=== PATIENT | male | born 1935 | race Hispanic/Latino ===

== ENCOUNTER 2017-03-23 09:01 | Outpatient (CLI) | payer MEDICARE, OTHER | END 2017-03-23 09:02 | disposition home or self-care (01) | PROVIDERS: ATTEND Nurse Practitioner Adult Health | DX: R13.19 Other dysphagia (principal); M62.81 Muscle weakness (generalized); I50.9 Heart failure, unspecified; J69.0 Pneumonitis due to inhalation of food and vomit ==

== ENCOUNTER → 2017-03-30 | Outpatient (CLI) | payer MEDICARE, OTHER ==
[~2017-03-30] MED LIST: Lidocaine 2% Jelly 5 ML TUBE ONE; Sodium Chloride 0.9% 15 ML NEB ONE
--- NOTE | 2017-03-30 19:31 | PRG ---
DATE OF SERVICE: 03/30/2017 HISTORY: Mr. Guillermo Vaz is an 81-year-old gentleman who presents [facility] for evaluat ion of an ulceration of the right medial buttock. The patient states that the ulceration has been pr esent on an intermittent basis for the past 7 years. He states that the ulceration began after he st arted receiving dialysis. The patient is presently residing at [facility]. The patient was re ferred to the Wound Center by NINA Ruiz. PAST MEDICAL HISTORY: 1. End-stage renal disease. 2. Diabetes mellitus. 3. History of hypertension. 4. Hypothyroidism. 5. Ischemic cardiomyopathy. 6. Coronary artery disease. 7. Hearing loss. 8. Atrial fibrillation. 9. Anemia. PAST SURGICAL HISTORY: 1. Dialysis access procedures. 2. Back surgery. 3. Knee surgery. 4. Achilles tendon repair. 5. Coronary artery bypass grafting/left atrial appendage ligation. MEDICATIONS: 1. Amiodarone. 2. Aspirin. 3. Coreg. 4. Dulcolax. 5. Megace. 6. Pantoprazole. 7. Tums. 8. Zofran. 9. Atorvastatin. 10. Humalog. 11. Renvela. 12. Pataday eyedrops. PHYSICAL EXAMINATION: VITAL SIGNS: Temperature 97.8, pulse 73, respirations 17, blood pressure 119/55. Accu-Chek 170. BACK: An ulceration of the right medial buttock is present, which measures approximately 0.5 x 0.2 c m. Granulation tissue is present within the wound margins. Nonviable tissue present within the woun d margins was debrided with an excisional full-thickness debridement with the use of a curet. No pur ulent drainage is associated with the wound. No erythema of the skin surrounding the wound is presen t. No maceration of the skin of the periwound is noted. ASSESSMENT AND PLAN: 1. Right medial buttock ulceration, dressing changes of Arglaes powder and bordered gauze will be in itiated today. These dressing changes are to be performed on a daily basis and as needed after clean sing and irrigation. No antibiotics will be prescribed today based upon the appearance of the wound. I will see Mr. Vaz again in two weeks. The patient understands and is in agreement with the preceding treatment plan. 2. End-stage renal disease. 3. Diabetes mellitus. The patient's Accu-Chek in clinic today is 170. The patient has been told th at for optimal wound healing, his blood glucoses should remain below 150. 4. History of hypertension. 5. Hypothyroidism. 6. Ischemic cardiomyopathy. 7. Coronary artery disease. 8. Hearing loss. 9. Atrial fibrillation. 10. Anemia.
== END ==
LOC: WCC 07:59
PROVIDERS: ATTEND Family Medicine
DX: L98.419 Non-pressure chronic ulcer of buttock with unspecified severity (principal); E11.22 Type 2 diabetes mellitus with diabetic chronic kidney disease; N18.6 End stage renal disease; I48.91 Unspecified atrial fibrillation; D64.9 Anemia, unspecified; I25.10 Atherosclerotic heart disease of native coronary artery without angina pectoris; E03.9 Hypothyroidism, unspecified; I25.5 Ischemic cardiomyopathy; H91.90 Unspecified hearing loss, unspecified ear; Z86.79 Personal history of other diseases of the circulatory system
CPT/HCPCS: 11042; 82962; 97139; G0463; 36416; 99214; A4218

== ENCOUNTER 2017-04-12 12:28 | Emergency (ER) | payer MEDICARE, OTHER ==
[2017-04-12 14:59] LABS: Mean Platelet Volume 7.6 fL (7.4-10.4); Red Blood Cell (RBC) Count 2.55 mill/uL (4.70-6.10); White Blood Cell (WBC) Count 10.2 thou/uL (4.8-10.8)
[2017-04-12 15:10] LABS: ALT (SGPT) 10 U/L (8-55); AST (SGOT) 15 U/L (5-34); Alkaline Phosphatase 86 U/L (40-150); Anion Gap 17 mmol/L (10-20); BUN (Urea Nitrogen) 66 mg/dL (8.4-25.7); Bilirubin, Total 0.8 mg/dL (0.2-1.2); Calc. Creatinine Clearance 0 mL/min (70-130); Calcium 9.2 mg/dL (7.8-10.44); Carbon Dioxide 28 mmol/L (23-31); Chloride 93 mmol/L (98-107); Estimated GFR-MDRD 10; Globulin 3.4 g/dL (2.4-3.5)
--- NOTE | 2017-04-12 15:27 | CT ---
CT CERVICAL SPINE WITHOUT CONTRAST: HISTORY: Fall. COMPARISON: Cervical spine CT 01/04/17. FINDINGS: Severe degenerative changes throughout the cervical spine are similar. There is levoscoliosis of the cervical spine.. The lung apices demonstrate some atelectatic changes. Soft tissues are edematous. There is extensive atherosclerotic plaque of the carotid bulbs. IMPRESSION: Severe degenerative changes. No acute fracture. POS: [facility]
[2017-04-12 15:33] LABS: Anisocytosis SLIGHT = 6-15 cells (100X) (0-5/hpf); Band 1 % (5-11); Hypochromia MODERATE=16-30 cells (100X) (0-5/hpf); Neutrophil 88 % (42-75)
--- NOTE | 2017-04-12 15:46 | RAD ---
EXAM: Pelvis 1 view COMPARISON: Multiple priors FINDINGS: There is further displacement of the left greater trochanter avulsion fracture. There is also a scler otic line along the intertrochanteric portion of the left femur. SI joints and pubic symphysis are un remarkable. IMPRESSION: 1. Further displacement of the left greater trochanter avulsion fracture. 2. Sclerotic line along the intertrochanteric portion left femur suggesting a healing fracture. POS: [facility]
== END 2017-04-12 18:57 ==
LOC: ERS 12:28
DX: M19.90 Unspecified osteoarthritis, unspecified site (principal); E11.22 Type 2 diabetes mellitus with diabetic chronic kidney disease; I25.2 Old myocardial infarction; I12.0 Hypertensive chronic kidney disease with stage 5 chronic kidney disease or end stage renal disease; G62.9 Polyneuropathy, unspecified; N18.6 End stage renal disease; Z79.4 Long term (current) use of insulin; Z79.82 Long term (current) use of aspirin; Z79.899 Other long term (current) drug therapy
CPT/HCPCS: 36415; 72125; 72170; 80053; 85025; 93005

== ENCOUNTER 2017-04-13 08:52 | Outpatient (CLI) | payer MEDICARE, OTHER ==
--- NOTE | 2017-04-13 10:22 | PRG ---
DATE OF SERVICE: 04/13/2017 HISTORY: Mr. Guillermo Vaz is a very pleasant 81-year-old gentleman who presents to the [facility] for evaluation of an ulceration of the right medial buttock. The patient previously stated that th e ulceration has been present on an intermittent basis for the past 7 years. He stated that the ulce ration began after he started receiving dialysis. The patient continues to reside at [facility]. The patient was referred to the Wound Center by Alicia WOOD. Since the patient's last visit, Mr. Vaz has been receiving dressing changes of Arglaes powder and bordered gauze on a daily ba sis after cleansing and irrigation. PHYSICAL EXAMINATION: VITAL SIGNS: Temperature 98.0, pulse 73, respirations 16, blood pressure 111/62. Accu-Chek 120. BACK: An ulceration of the right medial buttock is present which measures approximately 0.3 x 0.3 cm . The dimensions of the wound at the time of the patient's last visit were approximately 0.5 x 0.2 c m. Granulation tissue is present within the wound margins. Nonviable tissue present within the woun d margins was debrided with an excisional full-thickness debridement with the use of a curet. No pur ulent drainage is associated with the wound. No erythema of the skin surrounding the wound is presen t. No maceration of the skin of the periwound is noted. ASSESSMENT AND PLAN: 1. Right medial buttock ulceration. Dressing changes of Arglaes powder and bordered gauze will be c ontinued on a daily basis and as needed after cleansing and irrigation. I will see Mr. Vaz aga in in 3 weeks. 2. End-stage renal disease. 3. Diabetes mellitus. The patient's Accu-Chek in clinic today is 120. The patient has been reminde d that for optimal wound healing, his blood glucoses should remain below 150. 4. History of hypertension. 5. Hypothyroidism. 6. Ischemic cardiomyopathy. 7. Coronary artery disease. 8. Hearing loss. 9. Atrial fibrillation. 10. Anemia.
[2017-04-13] MEDS ORDERED: Lidocaine 2% Jelly 5 ML TUBE ONE (21:25)
[2017-04-13] MEDS ORDERED: Sodium Chloride 0.9% 15 ML NEB ONE (21:25)
== END 2017-04-13 08:53 | disposition home or self-care (01) ==
LOC: WCC 08:52
PROVIDERS: ATTEND Family Medicine
DX: E11.622 Type 2 diabetes mellitus with other skin ulcer (principal); L98.419 Non-pressure chronic ulcer of buttock with unspecified severity; E11.22 Type 2 diabetes mellitus with diabetic chronic kidney disease; I12.0 Hypertensive chronic kidney disease with stage 5 chronic kidney disease or end stage renal disease; E03.9 Hypothyroidism, unspecified; I25.10 Atherosclerotic heart disease of native coronary artery without angina pectoris; I48.91 Unspecified atrial fibrillation; I25.5 Ischemic cardiomyopathy; N18.6 End stage renal disease; D63.1 Anemia in chronic kidney disease; Z99.2 Dependence on renal dialysis; H91.90 Unspecified hearing loss, unspecified ear
CPT/HCPCS: A4218

== ENCOUNTER 2017-04-13 20:03 | Emergency (ER) | payer MEDICARE, OTHER ==
[2017-04-13 20:40] LABS: #Lymphocytes 0.5 thou/uL (1.20-3.40); #Monocytes 1.4 thou/uL (0.11-0.59); #Neutrophils 9.9 thou/uL (1.40-6.50); %Basophils 0.1 % (0.0-1.0); %Eosinophils 0.3 % (0.0-10.0); %Lymphocytes 4.3 % (21.0-51.0); %Monocytes 11.6 % (0.0-10.0); Hematocrit 27.1 % (42.0-52.0); Mean Platelet Volume 7.3 fL (7.4-10.4); Red Blood Cell (RBC) Count 2.66 mill/uL (4.70-6.10); White Blood Cell (WBC) Count 11.8 thou/uL (4.8-10.8)
[2017-04-13 21:02] LABS: ALT (SGPT) 10 U/L (8-55); AST (SGOT) 21 U/L (5-34); Alkaline Phosphatase 105 U/L (40-150); Anion Gap 19 mmol/L (10-20); BUN (Urea Nitrogen) 31 mg/dL (8.4-25.7); Calc. Creatinine Clearance 0 mL/min (70-130); Carbon Dioxide 25 mmol/L (23-31); Chloride 97 mmol/L (98-107); Estimated GFR-MDRD 18; Globulin 3.6 g/dL (2.4-3.5); Protein, Total 6.3 g/dL (5.8-8.1)
[2017-04-13 21:04] LABS: Troponin I 0.108 ng/mL (< 0.028)
--- NOTE | 2017-04-13 23:14 | CT ---
CT BRAIN 04/13/17 PROVIDED CLINICAL HISTORY: Altered mental status. FINDINGS: Comparison is made with the study dated 01/04/17. The ventricular system appears normal in size and morphology. There is no evidence for intracranial h emorrhage or mass effect. The extracranial soft tissues and osseous structures demonstrate no acute f indings. IMPRESSION: No evidence for intracranial hemorrhage or mass effect. POS: [facility]
== END 2017-04-14 00:16 | disposition home or self-care (01) ==
LOC: ERS 20:03
DX: R41.82 Altered mental status, unspecified (principal); I25.2 Old myocardial infarction; I12.0 Hypertensive chronic kidney disease with stage 5 chronic kidney disease or end stage renal disease; E11.40 Type 2 diabetes mellitus with diabetic neuropathy, unspecified; E11.22 Type 2 diabetes mellitus with diabetic chronic kidney disease; N18.6 End stage renal disease; Z79.82 Long term (current) use of aspirin; Z79.899 Other long term (current) drug therapy; Z99.2 Dependence on renal dialysis
CPT/HCPCS: 36415; 70450; 80053; 82553; 84484; 85025; 93005; A4218

== ENCOUNTER 2017-04-14 16:20 | Inpatient (IN) | payer MEDICARE, OTHER ==
[2017-04-14 16:49] LABS: #Lymphocytes 0.5 thou/uL (1.20-3.40); #Neutrophils 12.2 thou/uL (1.40-6.50); %Basophils 0.2 % (0.0-1.0); %Eosinophils 0.2 % (0.0-10.0); %Lymphocytes 3.5 % (21.0-51.0); %Monocytes 7.3 % (0.0-10.0); %Neutrophils 88.8 % (42.0-75.0); Hemoglobin 8.2 g/dL (14.0-18.0); Mean Corpuscular HGB CONC 31.4 g/dL (32.0-36.0); Mean Corpuscular Hemoglobin 31.6 pg (27.0-31.0); Mean Platelet Volume 7.7 fL (7.4-10.4); Platelet Count 234 thou/uL (130-400); RBC Distribution Width 16.4 % (11.5-14.5); White Blood Cell (WBC) Count 13.8 thou/uL (4.8-10.8)
[2017-04-14 17:09] LABS: ALT (SGPT) 10 U/L (8-55); AST (SGOT) 27 U/L (5-34); Albumin 2.7 g/dL (3.4-4.8); Alkaline Phosphatase 102 U/L (40-150); Anion Gap 17 mmol/L (10-20); BUN (Urea Nitrogen) 18 mg/dL (8.4-25.7); Bilirubin, Total 1.2 mg/dL (0.2-1.2); Calc. Creatinine Clearance 0 mL/min (70-130); Calcium 8.9 mg/dL (7.8-10.44); Carbon Dioxide 28 mmol/L (23-31); Chloride 99 mmol/L (98-107); Estimated GFR-MDRD 30; Globulin 3.5 g/dL (2.4-3.5); Glucose 183 mg/dL (83-110); Potassium 3.9 mmol/L (3.5-5.1); Protein, Total 6.2 g/dL (5.8-8.1); Sodium 140 mmol/L (136-145)
--- NOTE | 2017-04-14 17:37 | RAD ---
RIGHT HUMERUS TWO VIEWS: 04/14/17 HISTORY: 81-year-old male with pain and deformity. There is a markedly comminuted, markedly displaced and foreshortened fracture of the proximal humerus . There is very extensive callus. There is severe bone demineralization. There is no overt dislocatio n of the glenohumeral joint but there is severe resultant deformity because of severe foreshortening and an associated comminuted healing fracture. There is also some punctate gas collection within the right shoulder soft tissues. There appears to be some focal soft tissue swelling. IMPRESSION: Severe foreshortening and deformity of the comminuted proximal humeral and humeral neck fracture with marked worsening in position and alignment when compared to a prior 01/14/17 study. There is some rachel rly marked focal soft tissue swelling over the region of the right shoulder and right deltoid region. There also is noted to be several small punctate gas collections within the soft tissues lateral to the shoulder. Etiology of the soft tissue gas collections is uncertain, this could conceivably be rel ated to some type of injection or some type of open wound. If the patient has not had any type of inj ection in this region or any open wound, the possibility of gas forming bacteria and associated infec tion, cannot be excluded. Very severe bone demineralization. POS: [facility]
--- NOTE | 2017-04-14 17:39 | RAD ---
CHEST ONE VIEW: 04/14/17 HISTORY: 81-year-old male with history of pain and deformity. Postop midline sternotomy and left ICD. Mild stable vascular congestion. Borderline sized heart. Hea ling displaced comminuted proximal humeral fracture with extensive bony callus formation showing more deformity and foreshortening when compared to the 03/28/17 study. There is a small amount of punctate gas collecting in the soft tissue lateral to the right shoulder. Etiology of which is uncertain from this study. Please see the report from the humerus x-ray. IMPRESSION: Mild stable vascular congestion. Postop midline sternotomy and left ICD. Healing fracture proximal ri ght humerus with severe foreshortening and deformity and some tiny punctate gas collections in the so ft tissues. POS: [facility]
[2017-04-14] MEDS ORDERED: Fentanyl 100 MCG/2 ML VIAL ONE (21:59)
[2017-04-14] MEDS ORDERED: Clindamycin/D5W 900 mg/50 ml Premix Bag ONE (21:59)
--- NOTE | 2017-04-14 21:59 | CT ---
RIGHT SHOULDER CT WITHOUT IV CONTRAST: 04/14/17 HISTORY: Gas in the soft tissues of the right upper extremity. There is a comminuted, markedly displaced fracture of the humeral head and neck with considerable for eshortening and resultant deformity. There is no evidence for miguel ángel dislocation. There is very exuber ant callus. There is some scattered areas of calcification or ossification within the periarticular r egions as well as within some of the adjacent musculature of the shoulder including the deltoid muscl e and biceps muscle with some prominent subcutaneous soft tissue swelling and edematous changes. Ther e is scattered punctate areas of gas or air within the right shoulder soft tissues generally around t he fracture site as well as in the deltoid muscle and the biceps muscle and other scattered areas in the right shoulder soft tissue musculature and perimuscular region with a possible tiny amount of ann e gas within a superficial vein in the right shoulder. There is no evidence for an overt acute fractu re. There is no identifiable focal drainable abscess. IMPRESSION: Scattered areas of gas in the soft tissue mostly intramuscular and perimuscular region of the right s houlder certainly concerning for the possibility of infection including necrotizing fasciitis. I johnny ot identify any definite open wound but certainly correlation with any type of recent instrumentation or injections in the region of the right shoulder should certainly be considered but without history of an open wound or that of some type of recent instrumentation, infection and associated developing necrotizing fasciitis is certainly a consideration. There is a healing markedly displaced comminuted fracture of the humeral neck with exuberant bony callus and marked malalignment and resultant deform ity. There is some extensive scattered areas of soft tissue intramuscular calcification or ossificati on, nonspecific. This could possibly be related to prior scattered areas of myositis ossificans. Given the generalized subcutaneous, marianna and intramuscular and deep fascial edematous changes as well as the soft tissue and intramuscular and perimuscular gas, acute infection including necrotizing fas ciitis must be considered. Findings were discussed with Dr. Catalan at 9:47 p.m. Code CR POS: [facility]
[2017-04-15 00:40] LABS: Troponin I 0.163 ng/mL (< 0.028)
--- NOTE | 2017-04-15 01:56 | CON ---
DATE OF CONSUlTATION: 04/14/2017 HISTORY OF PRESENT ILLNESS: An 81-year-old male patient dialysis with a left arm fistula, nursing ho la resident who has dementia. The patient's daughter lives in town. She is not here with him. The patient has a caregiver accompanying him. Apparently, he has been in the emergency room on 7 yesterday for mental status changes and reports again today. Brain CAT scan yesterday on the . On the , he had a pelvis and cervical spine x-ray. The patient was brought in today for mental status changes. He was noted to have ecchymosis about his antecubital area and distal right upper a rm. Patient has a left arm dialysis fistula and did have labs drawn on 04/12 and 04/13, probably ref lecting multiple IV sticks in his right antecubital area where he has ecchymosis. He is concerned ab out these changes, had x-rays of right arm, he has a chronic proximal right humeral fracture. This h as healed secondarily without operation. Patient was noted on plain x-rays and CAT scan today of the right arm to know there is some soft tissue gas and punctate air. Examined his right arm reveals th at he has ecchymosis and edema about his antecubital area and his upper arm and deltoid area looks no rmal. Patient does not have changes consistent with necrotizing fasciitis and I think more than like ly this punctate area has gas and some edema in the distal upper arm are reflective of phlebotomies a nd IVs. ALLERGIES: None. MEDICATIONS: List not available, but previous indications, tramadol, Renvela, Zofran, nifedipine 30 mg daily, insulin units subcu q.p.m., carvedilol 6.25 mg b.i.d., Dulcolax daily, atorvastatin 2 0 mg at bedtime, aspirin 81 mg a day, amiodarone 400 mg a day. PAST SURGICAL HISTORY: Coronary bypass grafting four vessels, Dr. Barrientos on 12/17/2015, with maze pro carroll. On 06/2016, echocardiogram 30% ejection fraction, defibrillator left subclavian vein, cardia c catheterization 06/2016. Defibrillator placement. Dr. Thomas saw him Cardiology was , diagnosis ischemic cardiomyopathy; coronary artery disease, status post ICD placement. PAST MEDICAL HISTORY: Coronary disease; end-stage renal disease on maintenance dialysis Monday, , and Monday; diabetes type 2; dyslipidemia; dementia; chronic diastolic heart failure, ejection fraction 25-30%; hypothyroidism. SOCIAL HISTORY: senior care resident [facility] apartment. Tobacco, alcohol, drug us e: None. PHYSICAL EXAMINATION: VITAL SIGNS: Patient is communicative, 139/77, 83, 16. HEAD, EARS, EYES, NOSE, AND THROAT: Unremarkable. LUNGS: Clear to auscultation. CARDIAC: Regular rate and rhythm. ABDOMEN: Soft, nontender. EXTREMITIES: Unremarkable. Dialysis fistula left upper arm cephalic vein, right arm ecchymosis abov e the antecubital fossa, some edema, no crepitance, no skin changes upper half of the arm. No bliste ring, no changes, just necrotizing fasciitis. ASSESSMENT AND PLAN: 1. Patient has presented with mental status changes and there is concern for his right arm due to CA T scan and plain films demonstrated some soft tissue gas, but this is probably related to IV access. He does not need an operation tonight is my opinion. I do not think he needs antibiotis. One could observe him and repeat CAT scan in the morning. He could be admitted on the medical service. 2. Ischemic cardiomyopathy. 3. Diabetes mellitus type 2. 4. Dementia. 5. Defibrillator left subclavian placed in June. 6. Follow with Dr Thomas. 7. Left-arm fistula.
[2017-04-15 03:32] LABS: Hemoglobin 7.4 g/dL (14.0-18.0)
[2017-04-15 03:43] LABS: ALT (SGPT) 10 U/L (8-55); AST (SGOT) 23 U/L (5-34); Albumin 2.3 g/dL (3.4-4.8); Alkaline Phosphatase 84 U/L (40-150); Anion Gap 15 mmol/L (10-20); BUN (Urea Nitrogen) 25 mg/dL (8.4-25.7); Bilirubin, Total 0.7 mg/dL (0.2-1.2); Calc. Creatinine Clearance 20 mL/min (70-130); Calcium 8.7 mg/dL (7.8-10.44); Carbon Dioxide 27 mmol/L (23-31); Chloride 101 mmol/L (98-107); Estimated GFR-MDRD 23; Globulin 2.9 g/dL (2.4-3.5); Glucose 210 mg/dL (83-110); Potassium 3.9 mmol/L (3.5-5.1); Protein, Total 5.2 g/dL (5.8-8.1); Sodium 139 mmol/L (136-145)
[2017-04-15 03:47] LABS: Troponin I 0.155 ng/mL (< 0.028)
[2017-04-15] MEDS ORDERED: Milk Of Magnesia 30 ML UDCUP PO PRN (08:34)
[2017-04-15] MEDS ORDERED: guaiFENesin 100 MG/5 ML UDCUP PO PRN (08:34)
[2017-04-15] MEDS ORDERED: Sodium Chloride 0.65% Nasal 44 ML BOT EA NARE PRN (08:34)
[2017-04-15] MEDS ORDERED: Calcium Carbonate 500 MG ChewTAB PO PRN (08:34)
[2017-04-15] MEDS ORDERED: Dextrose 5% in Water 1,000 ML IV PRN (08:34)
[2017-04-15] MEDS ORDERED: HumaLOG 300 UNITS/3 ML VIAL SC PRN (08:34)
[2017-04-15] MEDS ORDERED: Lorazepam 0.5 MG TAB PO PRN (08:34)
[2017-04-15] MEDS ORDERED: Bisacodyl 10 MG SUPP PR PRN (08:34)
[2017-04-15] MEDS ORDERED: Ondansetron ODT 4 MG TAB PO PRN (08:34)
[2017-04-15] MEDS ORDERED: Mag-Al 1200 mg/1200 mg/30 ML UDCUP PO PRN (08:37)
[2017-04-15] MEDS ORDERED: Ondansetron HCl/PF 4 MG/2 ML Vial IVP PRN ×2 (08:37→17:28)
[2017-04-15] MEDS ORDERED: Docusate 100 MG CAP PO SCH (09:30)
[2017-04-15] MEDS ORDERED: Enoxaparin Sodium 30 MG/0.3 ML SYRINGE SC SCH (09:30)
[2017-04-15] MEDS ORDERED: Megestrol Acetate 800 MG/20 ML UDCUP PO SCH (09:30)
[2017-04-15] MEDS ORDERED: PHENYLEPHRINE-NS 100 MCG/ML 10 ML SYRINGE ONE (09:39)
[2017-04-15] MEDS ORDERED: Propofol 200 MG/20 ML VIAL ONE (09:39)
[2017-04-15] MEDS ORDERED: ePHEDrine/0.9% NaCl/PF SYRINGE 50 mg/10 ml ONE (09:39)
[2017-04-15] MEDS ORDERED: Lidocaine 1% PF 5 ML VIAL ONE (09:39)
[2017-04-15] MEDS ORDERED: Vancomycin HCl 1 GM in Premix Bag 1 BAG IVPB SCH ×2 (10:45→11:30)
[2017-04-15] MEDS ORDERED: Vancomycin HCl 500 MG in Sodium Chloride 0.9% 100 ML IVPB SCH (11:30)
[2017-04-15] MEDS ORDERED: Vancomycin HCl 750 MG in Sodium Chloride 0.9% 250 ML 250 ML IVPB SCH (11:30)
[2017-04-15] MEDS ORDERED: HOLD VANCOMYCIN FOR LEVEL >20 FS SCH (11:30)
[2017-04-15] MEDS ORDERED: Vancomycin HCl 1.25 GM in Sodium Chloride 0.9% 250 ML 250 ML IVPB SCH (11:30)
--- NOTE | 2017-04-15 11:45 | CT ---
CT RIGHT SHOULDER WITHOUT CONTRAST: Date: 04/15/17 HISTORY: Repeat examination to evaluate for subcutaneous gas. COMPARISON: CT of right shoulder from prior day. FINDINGS: The findings are completely unchanged. 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 There is extensi ve remodeling of the humeral head and neck. Soft tissue gas within superficial soft tissues, as well as within the biceps muscle is similar. This is not improved. There is gas within the deltoid musculature, and also within the joint itself. The erosive changes are much worsened from the comparison radiographs, although similar to the prior CT examination. There is heterotopic ossification around the right shoulder joint, as well as within the musculature. IMPRESSION: Unchanged examination of the shoulder. Findings are highly concerning for infection of the right shou lder and with infectious myositis. There is gas within the biceps musculature, as well as in the shou lder joint and deltoid. This is not improved. Nurse notified of findings via telephone at [phone] hours. CODE CR. POS: [facility]
[2017-04-15] MEDS ORDERED: Clindamycin/D5W 600 MG in Premix Bag 1 BAG IVPB SCH (12:00)
[2017-04-15] MEDS: Amiodarone 200 MG TAB PO SCH (12:01)
[2017-04-15] MEDS: Polyethylene Glycol 3350 17 GM Packet PO SCH (12:01)
[2017-04-15] MEDS: Sevelamer Carbonate 800 MG TAB PO SCH ×2 (12:02→21:14)
--- NOTE | 2017-04-15 13:43 | PRG ---
DATE OF SERVICE: 04/15/2017 Guillermo Vaz is an 81-year-old male who was admitted last night, he has soft tissue gas. Thought i atrogenic from 3 different hospital admissions, ER visits for IVs and phlebotomy draws, end-stage elsie al disease, dialyzing left upper arm fistula. This morning, followup CAT scan of his right upper ext remity demonstrates persistence of gaseous densities. Evaluation of his right arm reveals ecchymosis more extensive in the antecubital area and more induration proximally. ASSESSMENT AND PLAN: Soft tissue infection, right upper extremity. Would plan incision and drainage today. Vancomycin and clindamycin has been ordered. We will plan incision and drainage today. The family and patient understand that the wound will be left open for healing by secondary intention.
--- NOTE | 2017-04-15 14:05 | HP ---
DATE OF ADMISSION: 04/15/2017 PRIMARY CARE PHYSICIAN: Dr. Tank Stacy. CHIEF COMPLAINT: Worsening swelling, pain, and tenderness to the right upper extremity. HISTORY OF PRESENT ILLNESS: Mr. Vaz is a pleasant 81-year-old male with past medical history o f end-stage renal disease, on hemodialysis through the left arm fistula Monday, Monday, Monday as well as diabetes, coronary artery disease, status post coronary artery bypass graft, and cardiomyopat hy with AICD placement in June 2016, who presented to the emergency room with the above-mentioned co mplaint. History is mainly obtained by the patient himself and electronic medical records have been reviewed. The patient was actually seen in the emergency room on 04/13/2017 after his caregiver noticed some me ntal status changes. He was evaluated by CT scan of the brain and was discharged back. He was broug ht in again yesterday for same complaints of mental status changes. He was noted to have changes inc luding ecchymosis and diffuse bruising in his antecubital area in the right arm along with some swell ing and tenderness. He underwent various imaging studies for this including an x-ray of the humerus, which showed old healing fracture as well as significant focal soft tissue swelling in the right umer ulder and right deltoid region and some punctate gas collections in the soft tissue lateral to the sh oulders, concerning for infections. This led to a CT scan of the upper extremity, which also confirm ed the findings of soft tissue gas in the area around the right shoulder with a possibility of necrot izing fasciitis. He received IV antibiotics for this in the emergency room including vancomycin and clindamycin as well as Rocephin and was admitted for further evaluation. General Surgery was consult ed. Dr. Batista saw the patient yesterday in the ER and the plan was to reevaluate the arm with a repeat C T scan this morning. This was done and it showed concerning changes once again for necrotizing fasci itis and the plan for the patient is to get admitted as a full admit now instead of just observation status, as he would require surgical debridement. I have discussed this with Dr. Batista this morning . The infection seems to be around the right shoulder consistent with infectious myositis. His brui sing is in the antecubital area, which is more consistent with venipuncture bruising due to recent mu ltiple lab draws. Otherwise, he is hemodynamically stable. The care was discussed with the family present in the room as well. PAST MEDICAL HISTORY: 1. End-stage renal disease, on dialysis Monday, Monday, Monday. 2. Diabetes. 3. Hypertension. 4. Legally blind. 5. Difficulty with hearing. 6. Left foot injury. 7. Cardiomyopathy, status post pacemaker placement. 8. Chronic systolic heart failure with EF of 25%-30%. 9. Hypothyroidism. PAST SURGICAL HISTORY: 1. Coronary artery bypass graft. 2. AV fistula in the left arm. 3. Back surgery. 4. Knee surgery. 5. AICD placement. SOCIAL HISTORY: He lives in a ch[facility] and has no history of drug, tobacco, or alcohol abuse. T he patient lives at [facility]. FAMILY HISTORY: No significant family history of premature coronary artery disease. One of his brot hers of unknown type of cancer. ALLERGIES: No known medication allergies. HOME MEDICATIONS: Reviewed as follows, Renvela 2 tablets p.o. t.i.d., Ativan 0.5 mg p.o. daily p.r.n ., Dulcolax p.r.n., Tums p.r.n., Protonix 40 mg daily, Megace 5 mL p.o. b.i.d., Fleet Enema p.r.n., l idocaine patch 1 patch daily p.r.n., Coreg 6.25 mg p.o. b.i.d., Lipitor 20 mg daily, aspirin 81 mg da viv, and amiodarone 400 mg daily. REVIEW OF SYSTEMS: The following complete review of systems was negative, unless otherwise mentioned in the HPI or below: Constitutional: Weight loss or gain, ability to conduct usual activities. Sk in: Rash, itching. Eyes: Double vision, pain. ENT/Mouth: Nose bleeding, neck stiffness, pain, te nderness. Cardiovascular: Palpitations, dyspnea on exertion, orthopnea. Respiratory: Shortness of breath, wheezing, cough, hemoptysis, fever, or night sweats. Gastrointestinal: Poor appetite, abdo drew pain, heartburn, nausea, vomiting, constipation, or diarrhea. Genitourinary: Urgency, frequen cy, dysuria, nocturia. Musculoskeletal: Pain, swelling. Neurologic/Psychiatric: Anxiety, depressi on. Allergy/Immunologic: Skin rash, bleeding tendency. It is negative except for those mentioned i n the history and physical. The patient does complain of left-sided shoulder pain, but otherwise fee ls well. LABORATORY DATA: His CBC shows WBCs at 13.8, hemoglobin 8.2 with repeat hemoglobin of 7.4, platelet count of 234. Serum chemistries show a creatinine of 2.11 on presentation and 2.68 this morning. Ca rdiac enzymes are mildly elevated with troponin of 0.163 and repeat troponin of 0.155. Creatine bernadette se is within normal limits. Liver enzymes within normal limits. Lactic acid is normal at 1.9. A 12 -lead EKG, by my review, shows paced rhythm at 74 beats per minute. Chest x-ray, by my review, shows mild, stable pulmonary vascular congestion. Humeral x-ray shows significant shortening and deformit y of the comminuted proximal humeral and humeral neck fracture. Punctate gas collections within the soft tissue lateral to the shoulder as read by the radiologist. CT scan by the radiologist is concerning for necrotizing fasciitis once again in the right deltoid an d right shoulder region consistent with infectious myositis. PHYSICAL EXAMINATION: VITAL SIGNS: This morning include temperature 98.6, pulse of 72, respirations 18, saturating 96% on room air, blood pressure 97/56. GENERAL EXAMINATION: In no acute distress, awake, alert, oriented x3, lying comfortably in bed. Thor nam is at bedside. HEENT EXAMINATION: Mucous membrane is slightly dry. No oropharyngeal exudate or erythema. Head is normocephalic, atraumatic. Pupils are equally reactive to light and accommodation. Extraocular move ments intact. NECK: Supple without any lymphadenopathy, JVD, or bruit. CHEST: Clear to auscultation without any wheezing, rales, or rhonchi. Rhythm is regular without any murmur, rubs, or gallops. ABDOMEN: Soft, nontender, nondistended with positive bowel sounds. EXTREMITY EXAMINATION: Showed dialysis fistula in the left upper arm with good palpable thrill. Rig ht upper arm ecchymosis, bruising, swelling without any crepitus around the antecubital fossa. He marshall s limited range of motion to the right shoulder. Radial pulses are felt equally bilaterally. Lower extremities are free of any cyanosis, clubbing, or edema. NEUROLOGICAL EXAMINATION: Nonfocal. SKIN: Free of any rashes except for the bruising as mentioned above in the right upper extremity. PSYCHIATRIC: Normal affect. IMPRESSION AND PLAN: 1. Myositis with concerns for necrotizing fasciitis. At this time, the plan is for the patient to u nderady I and D by Dr. Batista in the operating room. He is being prepped for that. He will be kept n .p.o. for now. We will continue the antibiotics of vancomycin and clindamycin for now. Blood cultur es have been obtained and we will follow the results. He will require multiple days stay in the hosp ital. 2. We will also consult Infectious Disease for the choice of long-term antibiotics, IV versus oral, prior to discharge. The source of the infection is not clear at this time. The patient may require echocardiogram to rule out automatic implantable cardioverter defibrillator lead infection. We will follow the final results of the blood culture at this time. 3. End-stage renal disease. We will consult Nephrology, Dr. Rosenberg, for maintenance hemodialysis. 4. Abnormal troponin, likely secondary to chronic kidney disease versus demand ischemia from possibl e infection. We will continue to trend serial cardiac enzymes and restart home medications. 5. History of coronary artery disease, status post coronary artery bypass grafting. We will restart aspirin and Lipitor at this time. Hold the beta blockers given somewhat marginal blood pressure. 6. History of cardiomyopathy, status post automatic implantable cardioverter defibrillator placement . Restart home medications as above with close monitoring of hemodynamic status. 7. Chronic macrocytic anemia secondary to chronic kidney disease. We will recheck H and H on a jose y basis for transfusion as required. 8. Diabetes mellitus, type 2. Insulin sliding scale has been started with frequent Accu-Cheks. 9. Secondary hyperparathyroidism due to chronic kidney disease. 10. Severe deconditioning. We will consult Occupational Therapy and Physical Therapy. 11. Deep vein thrombosis and gastrointestinal prophylaxis. 12. Dyslipidemia. Continue Lipitor for now. 13. History of hypertension. We will restart the Coreg once his blood pressure is improved. Contin ue intravenous fluids for now. 14. Code status: FULL CODE discussed with the patient. DISPOSITION: The patient will require multiple nights' stay in the hospital given the severity of th e soft tissue infection. Estimated length of stay is at least 2-3 midnight at this time. Further fabian valerio will depend upon his clinical course.
[2017-04-15] MEDS ORDERED: Fentanyl 100 MCG/2 ML VIAL ONE ×3 (15:09→17:56)
[2017-04-15] MEDS ORDERED: Bupivacaine/Epinephrine 0.25% 30 ML VIAL ONE (16:58)
[2017-04-15] MEDS ORDERED: Promethazine HCl 25 MG/ML VIAL SLOW IVP PRN (17:28)
[2017-04-15] MEDS ORDERED: Promethazine HCl 25 MG/ML VIAL IM PRN (17:28)
--- NOTE | 2017-04-15 18:12 | OP ---
PREOPERATIVE DIAGNOSES: Possible Infection, right arm status post third emergency room visit in 3 co nsecutive days with phlebotomy and IV access and blood draws right antecubital area and soft tissue g as stable from CAT scan last night to this morning with some ecchymosis, edema, antecubital area, dis flavio upper arm, occluded internal jugular veins from previous dialysis access. POSTOPERATIVE DIAGNOSES: Possible Infection, right arm status post third emergency room visit in 3 c onsecutive days with phlebotomy and IV access and blood draws right antecubital area and soft tissue gas stable from CAT scan last night to this morning with some ecchymosis, edema, antecubital area, di stal upper arm, occluded internal jugular veins from previous dialysis access. PROCEDURES: Failed placement of right internal jugular vein catheter, successful right femoral vein triple lumen catheter. Incision and drainage of right upper arm wounds. Right upper arm exploration revealing absence of any infection just old hematoma, wound closed. SURGEON: Dr. Ric Batista. ANESTHESIA: General. Local 0.25% Marcaine with epinephrine 20 mL. PROCEDURE IN DETAIL: Patient taken to the operating room where under general LMA anesthesia, neck an d chest prepared with ChloraPrep and draped in routine fashion. Using ultrasound guidance, the right and left internal jugular veins were cannulated with trocar catheter. J-wire was threaded, but woul d not thread beyond the clavicle indicating obstruction from previous dialysis catheter access. Right groin was prepared with ChloraPrep and draped in routine fashion. Trocar catheter cannulated f emoral vein. Seldinger technique used to place triple lumen catheter and J-wire removed and catheter secured with 2 interrupted sutures of 3-0 silk and sterile dressing Biopatch applied. Each port asp irated blood and flushed with saline solution. IV access removed to this site. Right upper extremity was then prepared with ChloraPrep, draped in routine fashion. Patient had ecch ymosis about the antecubital area of right arm and induration proximally. Incision was made in the a nteromedial mid upper arm and the anterior upper arm more cephalad and in both areas. Dissection car ried down through the biceps musculature and there was no evidence of infection, just old hematoma fr om previous blood draws and IV access. Wounds closed by approximating the skin. Local anesthetic in filtrated into skin and subcutaneous tissue. Sterile dressing applied. Patient's right arm hematoma , ecchymosis, edema is due to previous phlebotomy access and IV access and is not due to an infection .
[2017-04-15] MEDS: Megestrol Acetate 800 MG/20 ML UDCUP PO SCH (21:28)
[2017-04-15] MEDS: Atorvastatin Calcium 20 MG TAB PO SCH (21:30)
[2017-04-15] MEDS: Docusate 100 MG CAP PO SCH (21:30)
[2017-04-16] MEDS: Enoxaparin Sodium 30 MG/0.3 ML SYRINGE SC SCH (05:34)
[2017-04-16 06:06] LABS: #Eosinphils 0.1 thou/uL (0.0-0.7); #Lymphocytes 0.7 thou/uL (1.20-3.40); #Neutrophils 11.4 thou/uL (1.40-6.50); %Basophils 0.1 % (0.0-1.0); %Eosinophils 0.8 % (0.0-10.0); %Lymphocytes 5.2 % (21.0-51.0); %Monocytes 7.8 % (0.0-10.0); %Neutrophils 86.2 % (42.0-75.0); Hemoglobin 7.3 g/dL (14.0-18.0); Mean Corpuscular HGB CONC 30.9 g/dL (32.0-36.0); Mean Corpuscular Hemoglobin 31.3 pg (27.0-31.0); Mean Platelet Volume 7.6 fL (7.4-10.4); Platelet Count 221 thou/uL (130-400); RBC Distribution Width 16.8 % (11.5-14.5); Red Blood Cell (RBC) Count 2.32 mill/uL (4.70-6.10); White Blood Cell (WBC) Count 13.2 thou/uL (4.8-10.8)
[2017-04-16 06:31] LABS: Anion Gap 14 mmol/L (10-20); BUN (Urea Nitrogen) 41 mg/dL (8.4-25.7); Calc. Creatinine Clearance 14 mL/min (70-130); Calcium 8.5 mg/dL (7.8-10.44); Carbon Dioxide 28 mmol/L (23-31); Estimated GFR-MDRD 15; Glucose 187 mg/dL (83-110); Potassium 4.2 mmol/L (3.5-5.1); Sodium 136 mmol/L (136-145)
[2017-04-16 06:41] LABS: Chloride 98 mmol/L (98-107)
[2017-04-16] MEDS: Sevelamer Carbonate 800 MG TAB PO SCH ×3 (08:00→17:50)
[2017-04-16] MEDS ORDERED: Clindamycin/D5W 600 MG in Premix Bag 1 BAG IVPB SCH ×2 (08:36→14:00)
[2017-04-16] MEDS: Piperacillin/Tazobactam 3.375 GM in Sodium Chloride 0.9% 100 ML IVPB SCH ×3 (08:50→17:49)
[2017-04-16 09:00] LABS: HBSAg Index 0.15 S/CO (0-0.99); Hep B Surf Ag Non-Reactive S/CO (NonReactive)
[2017-04-16] MEDS: Docusate 100 MG CAP PO SCH ×2 (09:00→20:31)
[2017-04-16] MEDS: traMADol HCl 50 MG TAB PO PRN ×2 (10:39→17:49)
--- NOTE | 2017-04-16 12:50 | CON ---
DATE OF CONSULTATION: 04/16/2017 SERVICE: Renal Medicine. HISTORY OF PRESENT ILLNESS: Mr. Vaz is an 81-year-old white male with ESRD -- maintenance hemo dialysis and was admitted for severe right upper extremity pain. He has been in the ER for a number of times. A CAT scan of the right upper arm was done, which showed some soft tissue gas in the area around the right shoulder. He underwent exploration of right upper extremity. There was no abscess or any evidence of infection noted. We are being consulted for maintenance hemodialysis. The patient is currently undergoing hemodialysi s; today I am at the bedside supervising his dialysis. We are doing a 3-hour dialysis regimen with t his patient. REVIEW OF SYSTEMS: Chronic right shoulder/right upper extremity pain. No chest pain or shortness of breath. No nausea, no vomiting, no diarrhea. Appetite and energy levels decreased. No headache. No diplopia. No sore throat. Denies any overt fever or chills. No hematochezia, no melena, no angelika temesis. No abdominal pain. No decreased hearing. Positive for joint pains. PAST MEDICAL HISTORY: 1. Patient has ESRD, currently on maintenance hemodialysis 3 times a week. 2. Type 2 diabetes mellitus. 3. Hypertension. 4. Decreased visual acuity. 5. Decreased hearing. 6. Status post left foot injury. 7. Cardiomyopathy -- EF of 25%-30%. 8. Cardiac arrhythmia. 9. Hypothyroidism. PAST SURGICAL HISTORY: 1. Status post AV fistula placement. 2. Status post pacemaker/AICD placement. 3. Status post knee surgery. 4. Status post back surgery. 5. Status post cuffed hemodialysis catheter placement. 6. Status post cardiac catheterization. 7. Status post coronary artery bypass grafting. 8. Status post repair of tendon of Achilles. SOCIAL HISTORY: The patient is currently in fpc placement. He is . Smoked for 15 y ears, one-pack a day; currently no alcohol use. Used to live in [place]. Two children. 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 Education, 2 years college - [employer]. ALLERGIES: None. TRAUMA: Status post fall. IMMUNIZATIONS: Up-to-date. HOSPITALIZATIONS: Please see past medical history. FAMILY HISTORY: No family history of ESRD. PHYSICAL EXAMINATION: VITAL SIGNS: Blood pressure is 150/60 with a heart rate of 70. GENERAL EXAM: Awake, positive for mild postop pain, not in respiratory distress. SKIN: Adequate turgor. HEENT: He has pale conjunctivae. Anicteric sclerae. NECK: No neck mass, no carotid bruits, no JVD. CHEST: No deformities. LUNGS: Decreased breath sounds. HEART: Normal sinus rhythm. No murmur, no gallops, and no rubs. ABDOMEN: Globular, soft, nontender, no masses. EXTREMITIES: No edema, no deformities. Right upper extremity surgical dressing noted. NEUROLOGIC: Awake, oriented to 3 spheres. Moving all extremities. No tremors or asterixis. MEDICATIONS: Medications of 04/16/2017 was reviewed. LABORATORY DATA: Laboratories of 04/16/2017, white count 13.2, hemoglobin 7.3, hematocrit 23.6. Sod ium 136, potassium 4.2, chloride 98, carbon dioxide 28, BUN 41, creatinine 3.89, glucose 187, calcium 8.5, albumin 2.3. ASSESSMENT AND PLAN: 1. Right upper extremity pain -- patient has no overt infection -- underwent exploration of that wou nd. Surgery is following. 2. Chronic right upper extremity pain -- supportive care. P.r.n. pain medication. 3. End-stage renal disease, stable. Tolerating current hemodialysis regimen. No heparin use is josias ng done. Meanwhile fluid removal is being done. 4. Anemia -- start Epogen 10,000 units subcutaneous q. week, p.r.n. blood transfusion. 5. Hypoalbuminemia -- Nepro 1 can b.i.d.
[2017-04-16] MEDS: Amiodarone 200 MG TAB PO SCH (14:32)
[2017-04-16] MEDS: Megestrol Acetate 800 MG/20 ML UDCUP PO SCH ×2 (14:32→20:30)
[2017-04-16] MEDS: Lidocaine 5% Patch TD PRN (14:33)
[2017-04-16] MEDS: Polyethylene Glycol 3350 17 GM Packet PO SCH (14:33)
--- NOTE | 2017-04-16 14:34 | PRG ---
DATE OF SERVICE: 04/16/2017 SUBJECTIVE: Mr. Vaz is doing well today. White count 13, hemoglobin 7.3. Basic metabolic pro file normal for end-stage renal disease. OBJECTIVE: LUNGS: Clear to auscultation. CARDIAC: Regular rate and rhythm without murmur or gallop. ABDOMEN: Soft. EXTREMITIES: Right upper extremity ecchymosis, without change mild edema. Surgical site upper arm l ooks good. ASSESSMENT AND PLAN: No evidence of a deep infection. Antibiotics have been discontinued. The priyanka ent's problem is related to 3 IV access and blood draws over 3 consecutive day ER visits, right arm. Currently, these gas bubbles are related to access. There is no evidence of infection. At th is point, I will see his needed this hospitalization, please call if necessary. The patient is stabl e for transfer back to detention from my perspective. He can follow up in my office in about 10 d ays for staple removal.
--- NOTE | 2017-04-16 14:51 | PDOC.PN ---
- Subjective Encounter Start Date: 04/16/17 Encounter Start Time: 14:49 Subjective: c/o neck pain that has been there for years. -: arm feels heavy but not painful - Objective MAR Reviewed: Yes Vital Signs & Weight: Vital Signs (12 hours) Temp Pulse Resp BP Pulse Ox 04/16/17 07:30 98.8 F 74 20 92/42 L 95 04/16/17 04:00 98.5 F 74 18 110/46 L 100 Weight Weight 145 lb I&O: 04/15/17 04/16/17 04/17/17 06:59 06:59 06:59 Intake Total 300 Output Total 0 Balance 300 Result Diagrams: 04/16/17 05:45 04/16/17 05:45 Additional Labs: Accuchecks 04/16/17 06:16 POC Glucose 177 H Microbiology 04/14/17 19:41 Venous blood - Right Arm Blood Culture - Preliminary Gram Positive Deshaun 04/14/17 19:41 Venous blood - Right Arm Blood Culture - Preliminary Gram Positive Deshaun 04/14/17 19:15 Venous blood - Left Arm Blood Culture - Preliminary Gram Positive Deshaun 04/14/17 19:15 Venous blood - Left Arm Blood Culture - Preliminary Gram Positive Deshaun Laboratory Tests 04/13/17 04/15/17 04/15/17 20:31 00:08 03:15 Troponin I 0.108 H 0.163 H 0.155 H Phys Exam - Physical Examination Constitutional: NAD HEENT: PERRLA, moist MMs, sclera anicteric, oral pharynx no lesions Neck: no nodes, no JVD, supple, full ROM Respiratory: no wheezing, no rales, no rhonchi, clear to auscultation bilateral Cardiovascular: RRR, no significant murmur Gastrointestinal: soft, non-tender, no distention, positive bowel sounds Musculoskeletal: pulses present, edema present r arm brusing & swelling better.no crepitus Neurological: non-focal, normal sensation, moves all 4 limbs Psychiatric: normal affect, A&O x 3 Skin: no rash Dx/Plan (1) Gram-positive bacteremia Code(s): R78.81 - BACTEREMIA Status: Acute (2) CHF (congestive heart failure), NYHA class III Code(s): I50.9 - HEART FAILURE, UNSPECIFIED Status: Acute Qualifiers: Congestive heart failure type: systolic Congestive heart failure chronicity : acute on chronic Qualified Code(s): I50.23 - Acute on chronic systolic ( congestive) heart failure (3) Anemia in chronic kidney disease (CKD) Code(s): N18.9 - CHRONIC KIDNEY DISEASE, UNSPECIFIED; D63.1 - ANEMIA IN CHRONIC KIDNEY DISEASE Status: Chronic (4) CAD (coronary artery disease) Code(s): I25.10 - ATHSCL HEART DISEASE OF [place] CORONARY ARTERY W/O ANG PCTRS Status: Chronic (5) Diabetes type 2, controlled Code(s): E11.9 - TYPE 2 DIABETES MELLITUS WITHOUT COMPLICATIONS Status: Chronic Qualifiers: Diabetes mellitus complication status: with kidney complications Diabetes mellitus complication detail: with chronic kidney disease Diabetes mellitus terminal worker insulin use: with terminal worker use Chronic kidney disease stage: on chronic dialysis Qualified Code(s): E11.22 - Type 2 diabetes mellitus with diabetic chronic kidney disease; N18.6 - End stage renal disease; Z79.4 - [facility]CI (current) use of insulin; Z99.2 - Dependence on renal dialysis (6) ESRD (end stage renal disease) on dialysis Code(s): N18.6 - END STAGE RENAL DISEASE; Z99.2 - DEPENDENCE ON RENAL DIALYSIS Status: Chronic (7) Secondary hyperparathyroidism of renal origin Code(s): N25.81 - SECONDARY HYPERPARATHYROIDISM OF RENAL ORIGIN Status: Chronic (8) Gas gangrene Code(s): A48.0 - GAS GANGRENE Status: Suspected (9) Ischemic cardiomyopathy Code(s): I25.5 - ISCHEMIC CARDIOMYOPATHY Status: Chronic (10) AICD (automatic cardioverter/defibrillator) present Code(s): Z95.810 - PRESENCE OF AUTOMATIC (IMPLANTABLE) CARDIAC DEFIBRILLATOR Status: Chronic - Plan continue antibiotics, PT/OT, manager social media, out of bed/ambulate, DVT proph w/ SCDs GPR 2/2 in blood.? clostridium Vs other bacterium.discussed w ID -: cont ABx for now untill further identification. -: hemodynamically stable.cont meds as below. -: add prn flexeril for OA neck pain. -: am labs.appreciate GS input * . Review of Systems - Review of Systems Constitutional: weakness, malaise ENT: negative: Ear Pain, Ear Discharge, Nose Pain, Nose Discharge, Nose Congestion, Mouth Pain, Mouth Swelling, Throat Pain, Throat Swelling, Other Respiratory: negative: Cough, Dry, Shortness of Breath, Hemoptysis, SOB with Excertion, Pleuritic Pain, Sputum, Wheezing Cardiovascular: negative: chest pain, palpitations, orthopnea, paroxysmal nocturnal dyspnea, edema, light headedness, other Gastrointestinal: negative: Nausea, Vomiting, Abdominal Pain, Diarrhea, Constipation, Melena, Hematochezia, Other Genitourinary: negative: Dysuria, Frequency, Incontinence, Hematuria, Retention , Other Musculoskeletal: Neck Pain Neurological: negative: Weakness, Numbness, Incoordination, Change in Speech, Confusion, Seizures, Other - Medications/Allergies Allergies/Adverse Reactions: Allergies Allergy/AdvReac Type Severity Reaction Status Date / Time No Known Allergies Allergy Verified 04/15/17 01:37 Medications: Current Medications Acetaminophen (Tylenol) 650 mg PO Q4H PRN PRN Reason: Headache/Fever or Pain Al Hydroxide/Mg Hydroxide (Maalox) 30 ml PO Q6H PRN PRN Reason: Heartburn or Indigestion Amiodarone HCl (Cordarone) 400 mg PO DAILY [facility] Last Admin: 04/15/17 12:01 Dose: 400 mg Aspirin (Aspirin Chewable) 81 mg PO DAILY [facility] Last Admin: 04/15/17 12:01 Dose: 81 mg Atorvastatin Calcium (Lipitor) 20 mg PO HS [facility] Last Admin: 04/15/17 21:30 Dose: 20 mg Bisacodyl (Dulcolax) 10 mg [place] DAILYPRN PRN PRN Reason: Constipation Calcium Carbonate (Tums) 1,000 mg PO Q6H PRN PRN Reason: Indigestion Cyclobenzaprine HCl (Flexeril) 10 mg PO TID PRN PRN Reason: Muscle Spasm Dextrose/Water (Dextrose 50%) 25 gm SLOW IVP PRN PRN PRN Reason: Hypoglycemia Docusate Sodium (Colace) 200 mg PO BID [facility] Last Admin: 04/16/17 09:00 Dose: Not Given Enoxaparin Sodium (Lovenox) 30 mg SC 0600 [facility] Last Admin: 04/16/17 05:34 Dose: 30 mg Glucagon (Glucagon) 1 mg IM PRN PRN PRN Reason: Hypoglycemia Guaifenesin (Robitussin) 200 mg PO Q4H PRN PRN Reason: Cough Dextrose/Water (D5w) 1,000 mls @ 0 mls/hr IV .Q0M PRN; As Directed PRN Reason: Hypoglycemia Piperacillin Sod/Tazobactam (Sod 3.375 gm/ Sodium Chloride) 100 mls @ 200 mls/ hr IVPB Q6HR [facility] Last Admin: 04/16/17 08:50 Dose: Not Given Insulin Human Lispro (Humalog) 0 units SC .MODERATE SLIDING SC PRN PRN Reason: Moderate [place] Scale Insulin Human Lispro (Humalog) 0 units SC .BEDTIME SLIDING SC PRN PRN Reason: Bedtime [place] Scale Lidocaine (Lidoderm 5% Patch) 1 patch TD DAILY PRN PRN Reason: Pain Lorazepam (Ativan) 0.5 mg PO DAILY PRN PRN Reason: Anxiety Magnesium Hydroxide (Milk Of Magnesium) 30 ml PO DAILY PRN PRN Reason: Constipation Megestrol Acetate (Megace) 200 mg PO BID [facility] Last Admin: 04/15/17 21:28 Dose: 200 mg Ondansetron HCl (Zofran Odt) 4 mg PO Q8H PRN PRN Reason: Nausea/Vomiting Ondansetron HCl (Zofran) 4 mg IVP Q6H PRN PRN Reason: Nausea/Vomiting Pantoprazole Sodium (Protonix) 40 mg PO DAILY [facility] Polyethylene Glycol (Miralax) 17 gm PO DAILY [facility] Last Admin: 04/15/17 12:01 Dose: Not Given Sevelamer Carbonate (Renvela) 1,600 mg PO TID-[facility] Last Admin: 04/16/17 08:00 Dose: Not Given Sodium Chloride ([place] Nasal [place] 0.65%) 0 ml EA NARE Q2H PRN PRN Reason: Nasal Dryness Tramadol HCl (Ultram) 50 mg PO Q6HR PRN PRN Reason: Pain Last Admin: 04/16/17 10:39 Dose: 50 mg
[2017-04-16] MEDS: Atorvastatin Calcium 20 MG TAB PO SCH (20:31)
--- NOTE | 2017-04-16 22:20 | CON ---
DATE OF CONSULTATION: 04/16/2017 REASON FOR CONSULTATION: Possible infection, right upper extremity, bacteremia. HISTORY OF PRESENT ILLNESS: An 81-year-old who has history of end-stage renal disease secondary to type 2 diabetes mellitus, neuropathy, previous right hip fracture and a recent right shoulder fracture, which has been managed conservatively as well as ischemic cardiomyopathy with prior bypass graft surgery and AICD placement who had been in rehab and then transferred to a [facility] until 04/13/2017 when caregiver noticed some confusional state. The patient was brought to the emergency room and evaluation was negative and he was released and then brought back with the same issues. The patient also acknowledges having fallen again and injury to the right side of his body, particularly the right upper extremity. At this time in the emergency room, he had imaging studies which showed some punctate gas collections of tissue lateral to the shoulders. CT confirmed the findings and he was admitted for possible infection there. The patient was given broad spectrum coverage. Dr. Batista evaluate the patient, took him to the OR, but no evidence of infection was found in the soft tissues. Currently, Mr. Vaz is awake. He is complaining of pain in the neck, particularly in the lower midline of the C- spine region and paravertebral tissues around the C7-T1 approximately. He has pain in the right shoulder, as well as marked limitation in range of motion there. No headaches, visual symptoms, sore throat, odynophagia, dysphagia, no vomiting, hematemesis, melena. No dyspnea or chest pain, no abdominal pain or diarrhea. Does not have any urinary output, no bleeding. No change in neurological condition. PAST MEDICAL HISTORY: End-stage renal disease secondary to type 2 diabetes mellitus on dialysis through an AV fistula, hypertension, blindness, hearing impairment, cardiomyopathy with AICD placement and bypass graft surgery, hypothyroidism, right shoulder fracture, which has been managed conservatively and I believe he had a right hip fracture as well. SOCIAL HISTORY: Had been in the assisted living, because of the fracture he has been transferred to fci. Never a smoker. FAMILY HISTORY: Noncontributory. ALLERGIES: None. CURRENT MEDICATIONS: Tylenol, Maalox, Cordarone, aspirin, Lipitor, Dulcolax, Tums, clindamycin, Zosyn. PHYSICAL EXAMINATION: VITAL SIGNS: T-max 98.8, blood pressure 92/42, pulse 74, respirations 18 to 20 , O2 sat 95% to 100%. GENERAL: He appears in no distress. SKIN: Shows areas of ecchymosis in the right distal medial arm. There are small areas of abrasion in the right forearm and left AV fistula, which has been accessed recently. AICD pocket site appears normal. HEENT: No lymphadenopathy. Pale conjunctivae. Oral cavity with still quite a few teeth in place. Tenderness on palpation of the lower C-spine region and paravertebral areas. LUNGS: With symmetric breath sounds with basilar inspiratory crackles. HEART: S1, S2 with soft aortic murmur. Regular rate. ABDOMEN: Soft, nondistended or tender. No ascites. No bladder distention. The patient has somewhat limp right foot and is able to move the toes. He cannot dorsiflex the right ankle. Right foot either. Pulses are diminished in dorsalis pedis. No other joint inflammatory process noticeable. Right shoulder swollen or deformed with marked limitation of range of motion. LABORATORY DATA: White cell count is 13.8, hemoglobin 8.2, MCV of 101, platelets 234 with 88% neutrophils. Liver profile normal, creatinine 2.11, potassium 3.9, sodium 140, albumin 2.7. CK 126. Microbiology with gram positive rods with two different sets of blood cultures obtained about 20 minutes apart, yet to be fully identified, susceptibility tested. The organism is aerobic, yet to be identified could represent a Corynebacterium species. IMAGING STUDIES: Chest x-ray with mild vascular congestion left AICD, healing fracture of right humerus and some punctate gas collection soft tissues. The patient had an upper extremity CT and it showed soft tissue gas superficial soft tissues as well as within the biceps muscle. ASSESSMENT: 1. End-stage renal disease secondary to type 2 diabetes mellitus. 2. Fracture of right humerus, earlier this year, managed conservatively. 3. Recent fall. 4. Worsening pain, lower C-spine neck region. 5. Subcutaneous emphysema of right shoulder, proximal right arm with air and soft tissues and sometimes described within muscle as well. 6. No evidence of inflammatory process upon surgical debridement or surgical incision of the site. 7. Bacteremia. 8. Leukocytosis. DISCUSSION: Differential diagnosis includes subcutaneous emphysema due to benign causes for example a small opening of the skin associated with fall, which led to valve phenomenon and insertion of air bubbles within the soft tissues through a valve phenomenon, which has been described in literature versus an alternate cause of subcutaneous emphysema. There is no evidence of communication with the gastrointestinal tract with lungs. The patient did have an IV access in the right forearm, but the notes indicate that was operating properly. An infection with necrotizing features has been ruled out by the surgical inspection of the area. The patient does have bacteremia, which is being further worked up and this could be secondary to the device with colonization of the leads, or could represent contamination of the samples, another area of concern is the lower C-spine area, which may have to be imaged with at least a CT scan since patient cannot have an MRI due to the pacemaker inserted. The mild neutrophilia could be either due to this bacteremia or volume overload. We will have to wait for the final identification of the organism to decide if further measures will be needed. He probably will need repeat blood cultures, which will be drawn on next dialysis to avoid the possibility of contamination of the sample through skin puncture. AILYN
[2017-04-17] MEDS: Piperacillin/Tazobactam 3.375 GM in Sodium Chloride 0.9% 100 ML IVPB SCH ×3 (00:52→13:50)
[2017-04-17] MEDS: Enoxaparin Sodium 30 MG/0.3 ML SYRINGE SC SCH (05:18)
[2017-04-17 06:01] LABS: #Eosinphils 0.1 thou/uL (0.0-0.7); #Lymphocytes 0.8 thou/uL (1.20-3.40); #Neutrophils 7.9 thou/uL (1.40-6.50); %Basophils 0.2 % (0.0-1.0); %Eosinophils 1.2 % (0.0-10.0); %Lymphocytes 7.6 % (21.0-51.0); %Monocytes 10.6 % (0.0-10.0); %Neutrophils 80.4 % (42.0-75.0); Hemoglobin 7.3 g/dL (14.0-18.0); Mean Corpuscular Hemoglobin 31.4 pg (27.0-31.0); Mean Platelet Volume 7.8 fL (7.4-10.4); Platelet Count 222 thou/uL (130-400); Red Blood Cell (RBC) Count 2.31 mill/uL (4.70-6.10); White Blood Cell (WBC) Count 9.8 thou/uL (4.8-10.8)
[2017-04-17 06:10] LABS: Anion Gap 11 mmol/L (10-20); BUN (Urea Nitrogen) 29 mg/dL (8.4-25.7); Calc. Creatinine Clearance 17 mL/min (70-130); Calcium 8.3 mg/dL (7.8-10.44); Carbon Dioxide 30 mmol/L (23-31); Chloride 98 mmol/L (98-107); Estimated GFR-MDRD 19; Glucose 285 mg/dL (83-110); Potassium 3.9 mmol/L (3.5-5.1); Sodium 135 mmol/L (136-145)
[2017-04-17] MEDS: traMADol HCl 50 MG TAB PO PRN ×3 (07:30→21:34)
[2017-04-17] MEDS: Megestrol Acetate 800 MG/20 ML UDCUP PO SCH ×2 (09:04→20:34)
[2017-04-17] MEDS: HumaLOG 300 UNITS/3 ML VIAL SC PRN (09:04)
[2017-04-17] MEDS: Polyethylene Glycol 3350 17 GM Packet PO SCH (09:04)
[2017-04-17] MEDS: Sevelamer Carbonate 800 MG TAB PO SCH ×3 (09:05→18:02)
[2017-04-17] MEDS: Amiodarone 200 MG TAB PO SCH (09:06)
[2017-04-17] MEDS: Docusate 100 MG CAP PO SCH ×2 (09:06→20:33)
--- NOTE | 2017-04-17 11:11 | CT ---
CT CERVICAL SPINE: Date: 04/17/17 HISTORY: right arm pain TECHNIQUE: Axial images are obtained with coronal and sagittal reconstructions. FINDINGS: There is lower cervical levoscoliosis. There is Grade I anterolisthesis of C7 on T1 and retrolisthesi s of C5 on C6. Multilevel disc space height loss with anterior and posterior osteophytes seen at C3-4 , C4-5, C5-6, C6-7, and C7-T1. No evidence of acute cervical spine fractures seen. Extensive facet de generative changes seen. No significant evidence of osseous neural foraminal narrowing is seen. There does appear to be some moderate to severe central spinal stenosis at the C5 level. At the C1-2 level, there does appear to be some transverse ligament hypertrophic changes and possible pannus formation. IMPRESSION: No evidence of acute cervical spine fractures. POS: LÁZARO
[2017-04-17] MEDS ORDERED: Epoetin (ESRD) 20,000 UNITS/ML SC SCH (11:15)
[2017-04-17] MEDS: Cyclobenzaprine 10 MG TAB PO PRN ×2 (12:24→21:34)
--- NOTE | 2017-04-17 12:28 | PDOC.PN ---
- Subjective Encounter Start Date: 04/17/17 Encounter Start Time: 12:27 - Objective Vital Signs & Weight: Vital Signs (12 hours) Temp Pulse Resp BP Pulse Ox 04/17/17 08:28 177/79 H 04/17/17 07:05 99.4 F 78 18 96 04/17/17 04:00 97.8 F 79 18 115/72 100 Weight Weight 143 lb I&O: 04/16/17 04/17/17 04/18/17 06:59 06:59 06:59 Intake Total 300 640 Output Total 0 0 Balance 300 640 Result Diagrams: 04/17/17 05:20 04/17/17 05:20 Additional Labs: Accuchecks 04/17/17 04/17/17 04/16/17 11:09 06:28 20:57 POC Glucose 146 H 311 H 220 H 04/16/17 04/16/17 17:14 11:43 POC Glucose 192 H 114 H Radiology Reviewed by me: Yes (Cervical Spine CT-no fracture) Phys Exam - Physical Examination Constitutional: NAD HEENT: PERRLA, moist MMs, sclera anicteric, oral pharynx no lesions Neck: no nodes, no JVD, supple, full ROM Respiratory: no wheezing, no rales, no rhonchi, clear to auscultation bilateral Cardiovascular: RRR, no significant murmur Gastrointestinal: soft, non-tender, no distention, positive bowel sounds Musculoskeletal: no edema, pulses present bruising of R arm improved.Limited ROM R shoulder Neurological: non-focal, normal sensation, moves all 4 limbs Psychiatric: normal affect, A&O x 3 Skin: no rash Dx/Plan (1) Gram-positive bacteremia Code(s): R78.81 - BACTEREMIA Status: Acute Comment: Cornybacterium 2/ 2.[place]ley contamination (2) CHF (congestive heart failure), NYHA class III Code(s): I50.9 - HEART FAILURE, UNSPECIFIED Status: Acute Qualifiers: Congestive heart failure type: systolic Congestive heart failure chronicity : chronic Qualified Code(s): I50.22 - Chronic systolic (congestive) heart failure (3) Anemia in chronic kidney disease (CKD) Code(s): N18.9 - CHRONIC KIDNEY DISEASE, UNSPECIFIED; D63.1 - ANEMIA IN CHRONIC KIDNEY DISEASE Status: Chronic (4) CAD (coronary artery disease) Code(s): I25.10 - ATHSCL HEART DISEASE OF [place] CORONARY ARTERY W/O ANG PCTRS Status: Chronic (5) Diabetes type 2, controlled Code(s): E11.9 - TYPE 2 DIABETES MELLITUS WITHOUT COMPLICATIONS Status: Chronic Qualifiers: Diabetes mellitus complication status: with kidney complications Diabetes mellitus complication detail: with chronic kidney disease 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 insulin use: with alf use Chronic kidney disease stage: on chronic dialysis Qualified Code(s): E11.22 - Type 2 diabetes mellitus with diabetic chronic kidney disease; N18.6 - End stage renal disease; Z79.4 - retirement (current) use of insulin; Z99.2 - Dependence on renal dialysis (6) ESRD (end stage renal disease) on dialysis Code(s): N18.6 - END STAGE RENAL DISEASE; Z99.2 - DEPENDENCE ON RENAL DIALYSIS Status: Chronic (7) Secondary hyperparathyroidism of renal origin Code(s): N25.81 - SECONDARY HYPERPARATHYROIDISM OF RENAL ORIGIN Status: Chronic (8) Gas gangrene Code(s): A48.0 - GAS GANGRENE Status: Suspected Comment: Ruled out (9) Ischemic cardiomyopathy Code(s): I25.5 - ISCHEMIC CARDIOMYOPATHY Status: Chronic (10) AICD (automatic cardioverter/defibrillator) present Code(s): Z95.810 - PRESENCE OF AUTOMATIC (IMPLANTABLE) CARDIAC DEFIBRILLATOR Status: Chronic - Plan continue antibiotics, 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 Has old right shoulder fracture -: will arrange SNIf as per his request. -: cont home meds as below. -: HD per nephrology. * .AM labs. * hemodynamically stable Review of Systems - Review of Systems Constitutional: negative: fever, chills, sweats, weakness, malaise, other ENT: negative: Ear Pain, Ear Discharge, Nose Pain, Nose Discharge, Nose Congestion, Mouth Pain, Mouth Swelling, Throat Pain, Throat Swelling, Other Respiratory: negative: Cough, Dry, Shortness of Breath, Hemoptysis, SOB with Excertion, Pleuritic Pain, Sputum, Wheezing Cardiovascular: negative: chest pain, palpitations, orthopnea, paroxysmal nocturnal dyspnea, edema, light headedness, other Gastrointestinal: negative: Nausea, Vomiting, Abdominal Pain, Diarrhea, Constipation, Melena, Hematochezia, Other Genitourinary: negative: Dysuria, Frequency, Incontinence, Hematuria, Retention , Other Musculoskeletal: Neck Pain, Back Pain. negative: Shoulder Pain, Arm Pain, Hand Pain, Leg Pain, Foot Pain, Other Neurological: negative: Weakness, Numbness, Incoordination, Change in Speech, Confusion, Seizures, Other - Medications/Allergies Allergies/Adverse Reactions: Allergies Allergy/AdvReac Type Severity Reaction Status Date / Time No Known Allergies Allergy Verified 04/15/17 01:37 Medications: Current Medications Acetaminophen (Tylenol) 650 mg PO Q4H PRN PRN Reason: Headache/Fever or Pain Al Hydroxide/Mg Hydroxide (Maalox) 30 ml PO Q6H PRN PRN Reason: Heartburn or Indigestion Amiodarone HCl (Cordarone) 400 mg PO DAILY [facility] Last Admin: 04/17/17 09:06 Dose: 400 mg Aspirin (Aspirin Chewable) 81 mg PO DAILY [facility] Last Admin: 04/17/17 09:06 Dose: 81 mg Atorvastatin Calcium (Lipitor) 20 mg PO HS [facility] Last Admin: 04/16/17 20:31 Dose: 20 mg Bisacodyl (Dulcolax) 10 mg ND DAILYPRN PRN PRN Reason: Constipation Calcium Carbonate (Tums) 1,000 mg PO Q6H PRN PRN Reason: Indigestion Cyclobenzaprine HCl (Flexeril) 10 mg PO TID PRN PRN Reason: Muscle Spasm Last Admin: 04/17/17 12:24 Dose: 10 mg Dextrose/Water (Dextrose 50%) 25 gm SLOW IVP PRN PRN PRN Reason: Hypoglycemia Docusate Sodium (Colace) 200 mg PO BID [facility] Last Admin: 04/17/17 09:06 Dose: 200 mg Enoxaparin Sodium (Lovenox) 30 mg SC 0600 [facility] Last Admin: 04/17/17 05:18 Dose: 30 mg Epoetin Ferdinand (Procrit) 7,500 units SC Q7D@1300 [facility] Gabapentin (Neurontin) 100 mg PO BID [facility] Glucagon (Glucagon) 1 mg IM PRN PRN PRN Reason: Hypoglycemia Guaifenesin (Robitussin) 200 mg PO Q4H PRN PRN Reason: Cough Dextrose/Water (D5w) 1,000 mls @ 0 mls/hr IV .Q0M PRN; As Directed PRN Reason: Hypoglycemia Piperacillin Sod/Tazobactam (Sod 3.375 gm/ Sodium Chloride) 100 mls @ 200 mls/ hr IVPB Q6HR [facility] Last Admin: 04/17/17 05:18 Dose: 100 mls Insulin Human Lispro (Humalog) 0 units SC .MODERATE SLIDING SC PRN PRN Reason: Moderate Correctional Scale Last Admin: 04/17/17 09:04 Dose: 8 unit Insulin Human Lispro (Humalog) 0 units SC .BEDTIME SLIDING SC PRN PRN Reason: Bedtime Correctional Scale Lidocaine (Lidoderm 5% Patch) 1 patch TD DAILY PRN PRN Reason: Pain Last Admin: 04/16/17 14:33 Dose: 1 patch Lorazepam (Ativan) 0.5 mg PO DAILY PRN PRN Reason: Anxiety Last Admin: 04/16/17 14:31 Dose: 0.5 mg Magnesium Hydroxide (Milk Of Magnesium) 30 ml PO DAILY PRN PRN Reason: Constipation Megestrol Acetate (Megace) 200 mg PO BID [facility] Last Admin: 04/17/17 09:04 Dose: 200 mg Ondansetron HCl (Zofran Odt) 4 mg PO Q8H PRN PRN Reason: Nausea/Vomiting Ondansetron HCl (Zofran) 4 mg IVP Q6H PRN PRN Reason: Nausea/Vomiting Pantoprazole Sodium (Protonix) 40 mg PO DAILY [facility] Last Admin: 04/17/17 09:06 Dose: 40 mg Polyethylene Glycol (Miralax) 17 gm PO DAILY [facility] Last Admin: 04/17/17 09:04 Dose: 17 gm Sevelamer Carbonate (Renvela) 1,600 [address] TID-[facility] [place] Last Admin: 04/17/17 12:24 Dose: 1,600 mg Sodium Chloride ([place] Nasal [place] 0.65%) 0 ml EA NARE Q2H PRN PRN Reason: Nasal Dryness Tramadol HCl (Ultram) 50 mg PO Q6HR PRN PRN Reason: Pain Last Admin: 04/17/17 07:30 Dose: 50 mg
--- NOTE | 2017-04-17 12:37 | PRG ---
DATE: 04/17/2017 SERVICE: Renal Medicine. SUBJECTIVE: Mr. Vaz is an 81-year-old white male with ESRD, being followed up at the [facility] for his maintenance hemodialysis. He underwent dialysis yesterday without any difficulty. The patient is still complaining of diffuse pain - nonspecific location. He says he has pain all over hi s body. The patient denies any chest pain or shortness of breath. OBJECTIVE: VITAL SIGNS: Blood pressure 177/79, heart rate 78, respiratory rate 18, temperature 99.4, pulse ox 9 6%. GENERAL EXAM: Noted to be awake, supine, not in overt distress. SKIN: Adequate turgor. HEENT: Pale conjunctivae. Anicteric sclerae. NECK: No neck mass, no carotid bruits, no JVD. CHEST: No deformities. LUNGS: Clear breath sounds. HEART: Normal sinus rhythm. No murmur, no gallops, no rubs. ABDOMEN: Globular, soft, nontender, no masses. EXTREMITIES: No edema or deformities. MEDICATIONS: Medications of 04/17/2017 reviewed. LABORATORY DATA: Laboratories of 04/17/2017, white count 9.8, hemoglobin 7.3. Sodium 135, potassium 3.9, chloride 98, carbon dioxide 30, BUN 29, creatinine 3.13, glucose 285, and calcium 8.3. ASSESSMENT AND PLAN: 1. End-stage renal disease, stable. We will continue current Monday, Monday, Monday dialysis wit h this patient. No indication for any emergent dialysis. 2. Diffuse joint pain/myalgia. Start gabapentin 100 mg p.o. b.i.d. If needed we can increase slowl y. Adjust for renal dosing. 3. Anemia. Start Epogen 7500 units subcutaneously every week.
[2017-04-17] MEDS: Epoetin (ESRD) 20,000 UNITS/ML SC SCH (13:51)
--- NOTE | 2017-04-17 14:13 | PRG ---
DATE OF SERVICE: 04/17/2017 Mr. Vaz is doing well today. He is at his baseline mental status. His right arm looks much be tter than over the past few days. The ecchymosis is resolving, the edema is resolving, the surgical wounds look good in the upper arm, there is no evidence of ongoing infection. The patient was seen t marleny because of positive blood cultures for Corynebacterium species. Dr. James has seen the patient. At this point, I do not think the right arm is the source of the infection or at least the infectio n if from the right arm is under control, no further intervention is necessary. At this time I will see him in my office in about a week and a half to remove his alton, otherwise I will see as needed this hospitalization. Please call if necessary.
--- NOTE | 2017-04-17 14:59 | PRG ---
DATE OF SERVICE: 04/17/2017 SUBJECTIVE: Feeling a little better with right upper extremity with less pain, still with a neck bot stefanie him not as much as yesterday. No respiratory symptoms. No abdominal pain. Constipated, not eating much. No neurological symptoms. OBJECTIVE: VITAL SIGNS: T-max 99.4, BP 170/79, pulse 78, respirations 18, O2 sat 96%. GENERAL: No distress, appears chronically ill, hearing impairment, right arm bruises with less swell ing than yesterday. No drainage from the incision sites. Shoulder dislocation, mild to moderate. NECK: Tenderness in the back. LUNGS: With symmetric clear breath sounds. HEART: S1, S2. ABDOMEN: Soft, not distended. EXTREMITIES: Able to move the lower extremities with some limitation. LABORATORY DATA: White cell count down to 9.8, hemoglobin 7.3, platelets 222. Sodium 135, creatinin e 3.13. CT of the neck showed degenerative arthritis, but no fractures. The contrast-phase scan jg l be done on Monday during dialysis or after dialysis, the patient will have a repeat blood cultur es submitted. The blood culture final identification is Corynebacterium species 2/2. ASSESSMENT AND DISCUSSION: End-stage renal disease, diabetes mellitus type 2, fracture right shoulde r which has a nonunion identified and recurrent fall, some injuries, subcutaneous emphysema of right arm, soft tissues most likely benign type with no evidence of inflammatory changes during recent surg ical exploration of the area, and bacteremia secondary to corynebacterium, which could represent cont amination of sample or true bacteremia associated with a pacemaker lead. We will discontinue antimic robials. We will repeat blood cultures and we will follow up from there.
[2017-04-17] MEDS: Lidocaine 5% Patch TD PRN (15:26)
[2017-04-17] MEDS: Atorvastatin Calcium 20 MG TAB PO SCH (20:33)
[2017-04-17] MEDS: Gabapentin 100 MG CAP PO SCH (20:34)
[2017-04-18] MEDS: Enoxaparin Sodium 30 MG/0.3 ML SYRINGE SC SCH (06:19)
[2017-04-18 06:42] LABS: Anion Gap 12 mmol/L (10-20); BUN (Urea Nitrogen) 40 mg/dL (8.4-25.7); Calc. Creatinine Clearance 13 mL/min (70-130); Calcium 8.4 mg/dL (7.8-10.44); Carbon Dioxide 29 mmol/L (23-31); Chloride 97 mmol/L (98-107); Estimated GFR-MDRD 14; Glucose 217 mg/dL (83-110); Potassium 4.1 mmol/L (3.5-5.1); Sodium 134 mmol/L (136-145)
--- NOTE | 2017-04-18 08:11 | PRG ---
DATE OF SERVICE: 04/18/2017 SUBJECTIVE: Mr. Vaz is an 81-year-old white male with ESRD being followed by the [facility] for his maintenance hemodialysis. The patient was complaining of diffuse myalgia yesterday. He was initiated on gabapentin at 100 mg tab b.i.d. The diffuse myalgia/pain is slightly improved this mor trixie. If needed, we can do a t.i.d. dosing of the gabapentin. The patient denies any chest pain, no shortness of breath. PHYSICAL EXAMINATION: VITAL SIGNS: Blood pressure is 95/62, heart rate 74, respiratory rate 18, temperature 97.4, pulse ox 99%. GENERAL: Noted to be awake, supine, comfortable, not in overt distress. SKIN: Adequate turgor. HEENT: He has slightly pale conjunctivae, anicteric sclerae. NECK: No neck mass, no carotid bruits, no JVD. CHEST: No deformities. LUNGS: Clear breath sounds. No wheezing. No crackles. HEART: Normal sinus rhythm. No murmur, no gallops or rubs. ABDOMEN: Globular, soft, nontender, no masses. EXTREMITIES: No edema or deformities. MEDICATIONS: 04/18/2017 - Reviewed. LABORATORY: 04/17/2017 - White count 9.8, hemoglobin 7.3, sodium 134. 04/18/2017 - Sodium 134, potassium 4.1, chloride 97, carbon dioxide 29, BUN 40, creatinine 4.16, glu cose 217, calcium 8.4. ASSESSMENT AND PLAN: 1. Diffuse myalgia - continue supportive care, continue gabapentin at 100 mg b.i.d. If needed, we c an increase this to a t.i.d. dosing. Slightly improved. 2. Anemia - the patient has been initiated on weekly Epogen. P.r.n. blood transfusion. 3. End-stage renal disease, stable. Tolerating hemodialysis regimen. There is no indication for an y emergent hemodialysis. I will bring back this patient to the regular Monday, Monday, Monday hem odialysis regimen. Recheck base met and CBC in a.m.
[2017-04-18] MEDS: Polyethylene Glycol 3350 17 GM Packet PO SCH ×2 (09:06→09:16)
[2017-04-18] MEDS: Sevelamer Carbonate 800 MG TAB PO SCH ×3 (09:08→18:15)
[2017-04-18] MEDS: Gabapentin 100 MG CAP PO SCH (09:08)
[2017-04-18] MEDS: Amiodarone 200 MG TAB PO SCH (09:08)
[2017-04-18] MEDS: Megestrol Acetate 800 MG/20 ML UDCUP PO SCH ×2 (09:10→23:37)
[2017-04-18] MEDS: Docusate 100 MG CAP PO SCH ×2 (09:16→23:37)
[2017-04-18] MEDS: HumaLOG 300 UNITS/3 ML VIAL SC PRN ×2 (09:22→12:30)
[2017-04-18] MEDS: Cyclobenzaprine 10 MG TAB PO PRN (09:54)
[2017-04-18] MEDS: traMADol HCl 50 MG TAB PO PRN (09:54)
--- NOTE | 2017-04-18 14:27 | PDOC.PN ---
- Subjective Encounter Start Date: 04/18/17 Encounter Start Time: 14:27 Subjective: Pt seen and examined for Bacetremia -: Pt denies any Fever, N/V/D - Objective MAR Reviewed: Yes Vital Signs & Weight: Vital Signs (12 hours) Temp Pulse Pulse Pulse Resp BP BP 04/18/17 13:44 98.5 F 04/18/17 11:34 75 18 04/18/17 11:32 74 75 142/50 H 127/58 L 04/18/17 07:30 97.9 F 77 16 04/18/17 04:00 97.4 F L 74 18 BP Pulse Ox Pulse Ox Pulse Ox 04/18/17 13:44 04/18/17 11:34 142/40 H 98 04/18/17 11:32 98 96 04/18/17 07:30 110/59 L 99 04/18/17 04:00 95/62 99 Weight Admit Weight 146 lb 4 oz Weight 145 lb I&O: 04/17/17 04/18/17 04/19/17 06:59 06:59 06:59 Intake Total 640 1014 Output Total 0 0 Balance 640 1014 Result Diagrams: 04/17/17 05:20 04/18/17 06:10 Additional Labs: Accuchecks 04/18/17 04/18/17 04/18/17 10:45 09:21 05:54 POC Glucose 175 H 224 H 229 H 04/17/17 04/17/17 21:16 16:35 POC Glucose 185 H 123 H Phys Exam - Physical Examination HEENT: PERRLA, moist MMs, sclera anicteric, TM's clear, oral pharynx no lesions , 2+ tonsils Neck: no nodes, no JVD, supple, full ROM Respiratory: no wheezing, no rales, no rhonchi, wheezing present, clear to auscultation bilateral Cardiovascular: RRR, no significant murmur, no rub, gallop, irregular Gastrointestinal: soft, non-tender, no distention, positive bowel sounds Musculoskeletal: no edema, pulses present, edema present Neurological: non-focal, normal sensation, moves all 4 limbs Skin: no rash, normal turgor, cap refill <2 seconds Dx/Plan (1) Gram-positive bacteremia Code(s): R78.81 - BACTEREMIA Status: Acute Comment: Cornybacterium 2/ 2.Likley contamination (2) AICD (automatic cardioverter/defibrillator) present Code(s): Z95.810 - PRESENCE OF AUTOMATIC (IMPLANTABLE) CARDIAC DEFIBRILLATOR Status: Chronic (3) Ischemic cardiomyopathy Code(s): I25.5 - ISCHEMIC CARDIOMYOPATHY Status: Chronic (4) CHF (congestive heart failure), NYHA class III Code(s): I50.9 - HEART FAILURE, UNSPECIFIED Status: Acute Qualifiers: Congestive heart failure type: systolic Congestive heart failure chronicity : chronic Qualified Code(s): I50.22 - Chronic systolic (congestive) heart failure (5) Community acquired bacterial pneumonia Code(s): J15.9 - UNSPECIFIED BACTERIAL PNEUMONIA Status: Acute (6) Hypoglycemia due to insulin Code(s): E16.0 - DRUG-INDUCED HYPOGLYCEMIA WITHOUT COMA; T38.3X5A - ADVERSE EFFECT OF INSULIN AND ORAL HYPOGLYCEMIC DRUGS, INIT Status: Acute - Plan continue antibiotics 1) ontinue 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 clostridium Vs other bacterium.discussed w ID 2)[id number] ABx for now untill further identification. 3) hemodynamically stable.cont meds as below. 4) prn flexeril for OA neck pain. * . Review of Systems - Review of Systems Constitutional: negative: fever, chills, sweats, weakness, malaise, other Eyes: negative: Pain, Vision Change, Conjunctivae Inflammation, Eyelid Inflammation, Redness, Other ENT: negative: Ear Pain, Ear Discharge, Nose Pain, Nose Discharge, Nose Congestion, Mouth Pain, Mouth Swelling, Throat Pain, Throat Swelling, Other Respiratory: negative: Cough, Dry, Shortness of Breath, Hemoptysis, SOB with Excertion, Pleuritic Pain, Sputum, Wheezing Cardiovascular: negative: chest pain, palpitations, orthopnea, paroxysmal nocturnal dyspnea, edema, light headedness, other Gastrointestinal: negative: Nausea, Vomiting, Abdominal Pain, Diarrhea, Constipation, Melena, Hematochezia, Other Genitourinary: negative: Dysuria, Frequency, Incontinence, Hematuria, Retention , Other Skin: negative: Rash, Lesions, Zak, Bruising, Other - Medications/Allergies Allergies/Adverse Reactions: Allergies Allergy/AdvReac Type Severity Reaction Status Date / Time No Known Allergies Allergy Verified 04/15/17 01:37 Medications: Current Medications Acetaminophen (Tylenol) 650 mg PO Q4H PRN PRN Reason: Headache/Fever or Pain Al Hydroxide/Mg Hydroxide (Maalox) 30 ml PO Q6H PRN PRN Reason: Heartburn or Indigestion Amiodarone HCl (Cordarone) 400 mg PO DAILY [facility] Last Admin: 04/18/17 09:08 Dose: 400 mg Aspirin (Aspirin Chewable) 81 mg PO DAILY [facility] Last Admin: 04/18/17 09:08 Dose: 81 mg Atorvastatin Calcium (Lipitor) 20 mg PO HS [facility] Last Admin: 04/17/17 20:33 Dose: 20 mg Bisacodyl (Dulcolax) 10 mg [place] DAILYPRN PRN PRN Reason: Constipation Calcium Carbonate (Tums) 1,000 mg PO Q6H PRN PRN Reason: Indigestion Cyclobenzaprine HCl (Flexeril) 10 mg PO TID PRN PRN Reason: Muscle Spasm Last Admin: 04/18/17 09:54 Dose: 10 mg Dextrose/Water (Dextrose 50%) 25 gm SLOW IVP PRN PRN PRN Reason: Hypoglycemia Docusate Sodium (Colace) 200 mg PO BID [facility] Last Admin: 04/18/17 09:16 Dose: Not Given Enoxaparin Sodium (Lovenox) 30 mg SC 0600 [facility] Last Admin: 04/18/17 06:19 Dose: 30 mg Epoetin Ferdinand (Procrit) 7,500 units SC Q7D@1300 [facility] Last Admin: 04/17/17 13:51 Dose: 7,500 units Gabapentin (Neurontin) 100 mg PO BID [facility] Last Admin: 04/18/17 09:08 Dose: 100 mg Glucagon (Glucagon) 1 mg IM PRN PRN PRN Reason: Hypoglycemia Guaifenesin (Robitussin) 200 mg PO Q4H PRN PRN Reason: Cough Dextrose/Water (D5w) 1,000 mls @ 0 mls/hr IV .Q0M PRN; As Directed PRN Reason: Hypoglycemia Insulin Human Lispro (Humalog) 0 units SC .MODERATE SLIDING SC PRN PRN Reason: Moderate Correctional Scale Last Admin: 04/18/17 12:30 Dose: 2 unit Insulin Human Lispro (Humalog) 0 units SC .BEDTIME SLIDING SC PRN PRN Reason: Bedtime Correctional Scale Lidocaine (Lidoderm 5% Patch) 1 patch TD DAILY PRN PRN Reason: Pain Last Admin: 04/17/17 15:26 Dose: 1 patch Lorazepam (Ativan) 0.5 mg PO DAILY PRN PRN Reason: Anxiety Last Admin: 04/16/17 14:31 Dose: 0.5 mg Magnesium Hydroxide (Milk Of Magnesium) 30 ml PO DAILY PRN PRN Reason: Constipation Megestrol Acetate (Megace) 200 mg PO BID [facility] Last Admin: 04/18/17 09:10 Dose: 200 mg Ondansetron HCl (Zofran Odt) 4 mg PO Q8H PRN PRN Reason: Nausea/Vomiting Ondansetron HCl (Zofran) 4 mg IVP Q6H PRN PRN Reason: Nausea/Vomiting Pantoprazole Sodium (Protonix) 40 mg PO DAILY [facility] Last Admin: 04/18/17 09:08 Dose: 40 mg Polyethylene Glycol (Miralax) 17 gm PO DAILY [facility] Last Admin: 04/18/17 09:16 Dose: Not Given Sevelamer Carbonate (Renvela) 1,600 mg PO TID-[facility] Last Admin: 04/18/17 12:29 Dose: 1,600 mg Sodium Chloride ([place] [facility] [place] 0.65%) 0 ml EA NARE Q2H PRN PRN Reason: Nasal Dryness Tramadol HCl (Ultram) 50 mg PO Q6HR PRN PRN Reason: Pain Last Admin: 04/18/17 09:54 Dose: 50 mg
[2017-04-18] MEDS: Dextrose 50% Abboject 50 ML SYRINGE SLOW IVP PRN ×2 (14:42→16:37)
[2017-04-18] MEDS ORDERED: Dextrose 5% in Water 500 ML IV SCH (17:00)
[2017-04-18 19:14] LABS: Hemoglobin 7.4 g/dL (14.0-18.0); Mean Corpuscular HGB CONC 30.6 g/dL (32.0-36.0); Mean Corpuscular Hemoglobin 30.9 pg (27.0-31.0); Platelet Count 220 thou/uL (130-400); RBC Distribution Width 17.3 % (11.5-14.5); Red Blood Cell (RBC) Count 2.38 mill/uL (4.70-6.10); White Blood Cell (WBC) Count 11.5 thou/uL (4.8-10.8)
[2017-04-18 19:34] LABS: Anion Gap 13 mmol/L (10-20); BUN (Urea Nitrogen) 42 mg/dL (8.4-25.7); Calc. Creatinine Clearance 11 mL/min (70-130); Calcium 8.6 mg/dL (7.8-10.44); Carbon Dioxide 29 mmol/L (23-31); Chloride 97 mmol/L (98-107); Estimated GFR-MDRD 12; Glucose 151 mg/dL (83-110); Potassium 4.2 mmol/L (3.5-5.1); Sodium 135 mmol/L (136-145)
[2017-04-18 19:43] LABS: Anisocytosis SLIGHT = 6-15 cells (100X) (0-5/hpf); Band 3 % (5-11); Hypochromia SLIGHT = 6-15 cells (100X) (0-5/hpf); Lymphocytes 3 % (21-51); MDiff Complete? YES; Monocytes 3 % (0-10); Neutrophil 91 % (42-75); PLT Morphology Comment Appears Adequate
[2017-04-18] MEDS: Atorvastatin Calcium 20 MG TAB PO SCH (23:37)
[2017-04-19] MEDS: D5 1/4 NS 1,000 ML IV SCH (03:23)
[2017-04-19] MEDS: Enoxaparin Sodium 30 MG/0.3 ML SYRINGE SC SCH (05:36)
[2017-04-19 06:31] LABS: #Eosinphils 0.2 thou/uL (0.0-0.7); #Lymphocytes 0.9 thou/uL (1.20-3.40); #Neutrophils 8.1 thou/uL (1.40-6.50); %Basophils 0.1 % (0.0-1.0); %Eosinophils 2.2 % (0.0-10.0); %Monocytes 9.8 % (0.0-10.0); Hemoglobin 6.9 g/dL (14.0-18.0); Mean Corpuscular HGB CONC 30.7 g/dL (32.0-36.0); Mean Platelet Volume 7.9 fL (7.4-10.4); Platelet Count 215 thou/uL (130-400); RBC Distribution Width 17.7 % (11.5-14.5); Red Blood Cell (RBC) Count 2.23 mill/uL (4.70-6.10); White Blood Cell (WBC) Count 10.3 thou/uL (4.8-10.8)
[2017-04-19 06:41] LABS: Anion Gap 13 mmol/L (10-20); BUN (Urea Nitrogen) 47 mg/dL (8.4-25.7); Calc. Creatinine Clearance 11 mL/min (70-130); Calcium 8.5 mg/dL (7.8-10.44); Carbon Dioxide 29 mmol/L (23-31); Chloride 95 mmol/L (98-107); Estimated GFR-MDRD 11; Glucose 251 mg/dL (83-110); Potassium 4.4 mmol/L (3.5-5.1); Sodium 133 mmol/L (136-145)
--- NOTE | 2017-04-19 09:15 | PRG ---
DATE OF SERVICE: 04/19/2017 SERVICE: Renal Medicine. SUBJECTIVE: Mr. Vaz is an 81-year-old white man with ESRD, currently undergoing maintenance he modialysis. I am at the bedside supervising his dialysis. Last time, I was called due to confusion. My feeling is that his confusion may have been related from his pain medications. I did discuss th e case with the nursing staff and we have discontinued his pain medications as well as the Neurontin. He has no other complaints today. OBJECTIVE: VITAL SIGNS: Blood pressure is 150/50 and heart rate is 70. GENERAL: Awake, lethargic, not in overt distress. SKIN: Adequate turgor. HEENT: He has pale conjunctivae. Anicteric sclerae. NECK: No neck mass, no carotid bruits. No JVD. CHEST: No deformities. LUNGS: Decreased breath sounds. HEART: Normal sinus rhythm. No murmur, no gallops, no rubs. ABDOMEN: Globular, soft, nontender, no masses. EXTREMITIES: No edema or deformities. MEDICATIONS: Medications of 04/19/2017 reviewed. LABORATORY DATA: Laboratories of 04/19/2017, white count 10.2, hemoglobin 6.9, sodium 133, potassium 4.4, chloride 95, carbon dioxide 29, BUN 47, creatinine 5.07, glucose 251, calcium 8.5. ASSESSMENT AND PLAN: 1. End-stage renal disease. Continuing Monday, Monday, Monday hemodialysis regimen. Fluid remov al only as tolerated. Fluid removal is minimal due to his decreased p.o. intake. 2. Anemia -- we will transfuse 2 units of packed RBC with dialysis. At the same time, we will wiliam nue current Epogen regimen with this patient. 3. Confusion -- consider metabolic encephalopathy versus drug induced. Please note this patient pre sented several days ago at the ER for confusion. A CT scan of the brain was already done at that zay[facility], which showed no acute intracranial abnormality. I have discontinued the pain medications and alexi pentin for the moment with this patient. Overall, prognosis remains guarded. Recheck basic metaboli c panel and CBC in a.m.
[2017-04-19] MEDS: Megestrol Acetate 800 MG/20 ML UDCUP PO SCH ×2 (12:45→21:11)
[2017-04-19] MEDS: Amiodarone 200 MG TAB PO SCH (12:46)
[2017-04-19] MEDS: Sevelamer Carbonate 800 MG TAB PO SCH ×3 (12:46→18:23)
[2017-04-19] MEDS: Docusate 100 MG CAP PO SCH ×2 (12:47→21:11)
--- NOTE | 2017-04-19 15:06 | PDOC.PN ---
- Subjective Encounter Start Date: 04/19/17 Encounter Start Time: 15:05 Subjective: Pt seen and examined for ESRD on HD, Bactremia -: Hypoglycemia resolved -: c/o neck pain - Objective MAR Reviewed: Yes Vital Signs & Weight: Vital Signs (12 hours) Temp Pulse Pulse Resp BP BP Pulse Ox 04/19/17 11:00 97.7 F 85 18 154/54 H 04/19/17 10:44 98.8 F 84 18 89/39 L 04/19/17 10:20 98.2 F 82 18 118/33 L 04/19/17 10:05 98.8 F 72 18 81/38 L 04/19/17 09:45 98.3 F 80 18 129/33 L 04/19/17 07:37 97.7 F 77 16 99/56 L 100 04/19/17 04:00 97.6 F 80 17 90/80 98 Weight Admit Weight 146 lb 4 oz Weight 155 lb I&O: 04/18/17 04/19/17 04/20/17 06:59 06:59 06:59 Intake Total 1014 1445 700 Output Total 0 0 Balance 1014 1445 700 Result Diagrams: 04/19/17 05:37 04/19/17 03:30 Additional Labs: Accuchecks 04/19/17 04/18/17 04/18/17 06:07 20:19 18:20 POC Glucose 269 H 177 H 125 H 04/18/17 04/18/17 04/18/17 17:17 16:31 15:17 POC Glucose 148 H 62 L 101 04/18/17 14:40 POC Glucose 42 L* Phys Exam - Physical Examination HEENT: PERRLA, moist MMs, sclera anicteric, TM's clear, oral pharynx no lesions , 2+ tonsils Neck: no nodes, no JVD, supple, full ROM Respiratory: no wheezing, no rales, no rhonchi, wheezing present, clear to auscultation bilateral Cardiovascular: RRR, no significant murmur, no rub, gallop, irregular Gastrointestinal: soft, non-tender, no distention, positive bowel sounds Musculoskeletal: no edema, pulses present, edema present Dx/Plan (1) Gram-positive bacteremia Code(s): R78.81 - BACTEREMIA Status: Acute Comment: Cornybacterium 2/ 2.Likley contamination (2) AICD (automatic cardioverter/defibrillator) present Code(s): Z95.810 - PRESENCE OF AUTOMATIC (IMPLANTABLE) CARDIAC DEFIBRILLATOR Status: Chronic (3) Ischemic cardiomyopathy Code(s): I25.5 - ISCHEMIC CARDIOMYOPATHY Status: Chronic (4) CHF (congestive heart failure), NYHA class III Code(s): I50.9 - HEART FAILURE, UNSPECIFIED Status: Acute Qualifiers: Congestive heart failure type: systolic Congestive heart failure chronicity : chronic Qualified Code(s): I50.22 - Chronic systolic (congestive) heart failure (5) Community acquired bacterial pneumonia Code(s): J15.9 - UNSPECIFIED BACTERIAL PNEUMONIA Status: Acute (6) Hypoglycemia due to insulin Code(s): E16.0 - DRUG-INDUCED HYPOGLYCEMIA WITHOUT COMA; T38.3X5A - ADVERSE EFFECT OF INSULIN AND ORAL HYPOGLYCEMIC DRUGS, INIT Status: Acute - Plan cont current plan of care, continue antibiotics 1) ESRD on HD, Continue HD -: 2 Anemia sec to ESRD, PRBC PRN -: 3) Bactremia, contamination, off Antibiotics -: 4) DVT Prophylaxis, Lovenox * . Review of Systems - Review of Systems Respiratory: negative: Cough, Dry, Shortness of Breath, Hemoptysis, SOB with Excertion, Pleuritic Pain, Sputum, Wheezing Cardiovascular: negative: chest pain, palpitations, orthopnea, paroxysmal nocturnal dyspnea, edema, light headedness, other Gastrointestinal: negative: Nausea, Vomiting, Abdominal Pain, Diarrhea, Constipation, Melena, Hematochezia, Other Genitourinary: negative: Dysuria, Frequency, Incontinence, Hematuria, Retention , Other - Medications/Allergies Allergies/Adverse Reactions: Allergies Allergy/AdvReac Type Severity Reaction Status Date / Time No Known Allergies Allergy Verified 04/15/17 01:37 Medications: Current Medications Acetaminophen (Tylenol) 650 mg PO Q4H PRN PRN Reason: Headache/Fever or Pain Al Hydroxide/Mg Hydroxide (Maalox) 30 ml PO Q6H PRN PRN Reason: Heartburn or Indigestion Amiodarone HCl (Cordarone) 400 mg PO DAILY [facility] Last Admin: 04/19/17 12:46 Dose: 400 mg Aspirin (Aspirin Chewable) 81 mg PO DAILY [facility] Last Admin: 04/19/17 12:47 Dose: 81 mg Atorvastatin Calcium (Lipitor) 20 mg PO HS [facility] Last Admin: 04/18/17 23:37 Dose: Not Given Bisacodyl (Dulcolax) 10 mg [place] DAILYPRN PRN PRN Reason: Constipation Calcium Carbonate (Tums) 1,000 mg PO Q6H PRN PRN Reason: Indigestion Dextrose/Water (Dextrose 50%) 25 gm SLOW IVP PRN PRN PRN Reason: Hypoglycemia Last Admin: 04/18/17 16:37 Dose: 25 gm Docusate Sodium (Colace) 200 mg PO BID [facility] Last Admin: 04/19/17 12:47 Dose: Not Given Enoxaparin Sodium (Lovenox) 30 mg SC 0600 [facility] Last Admin: 04/19/17 05:36 Dose: 30 mg Epoetin Ferdinand (Procrit) 7,500 units SC Q7D@1300 [facility] Last Admin: 04/17/17 13:51 Dose: 7,500 units Glucagon (Glucagon) 1 mg IM PRN PRN PRN Reason: Hypoglycemia Guaifenesin (Robitussin) 200 mg PO Q4H PRN PRN Reason: Cough Dextrose/Water (D5w) 1,000 mls @ 0 mls/hr IV .Q0M PRN; As Directed PRN Reason: Hypoglycemia Dextrose/Sodium Chloride (D5 1/4 Ns) 1,000 mls @ 55 mls/hr IV .[id number] [facility] Last Admin: 04/19/17 03:23 Dose: 1,000 mls Insulin Human Lispro (Humalog) 0 units SC .MODERATE SLIDING SC PRN PRN Reason: Moderate Correctional Scale Last Admin: 04/18/17 12:30 Dose: 2 unit Insulin Human Lispro (Humalog) 0 units SC .BEDTIME SLIDING SC PRN PRN Reason: Bedtime Correctional Scale Lorazepam (Ativan) 0.5 mg PO DAILY PRN PRN Reason: Anxiety Last Admin: 04/16/17 14:31 Dose: 0.5 mg Magnesium Hydroxide (Milk Of Magnesium) 30 ml PO DAILY PRN PRN Reason: Constipation Megestrol Acetate (Megace) 200 mg PO BID [facility] Last Admin: 04/19/17 12:45 Dose: 200 mg Ondansetron HCl (Zofran Odt) 4 mg PO Q8H PRN PRN Reason: Nausea/Vomiting Ondansetron HCl (Zofran) 4 mg IVP Q6H PRN PRN Reason: Nausea/Vomiting Pantoprazole Sodium (Protonix) 40 mg PO DAILY [facility] Last Admin: 04/19/17 12:47 Dose: 40 mg Polyethylene Glycol (Miralax) 17 gm PO DAILY [facility] Last Admin: 04/18/17 09:16 Dose: Not Given Sevelamer Carbonate (Renvela) 1,600 mg PO TID-WM [facility] Last Admin: 04/19/17 12:46 Dose: 1,600 mg Sodium Chloride ([place] [facility] [place] 0.65%) 0 ml EA NARE Q2H PRN PRN Reason: Nasal Dryness
[2017-04-19] MEDS: Acetaminophen 325 MG TAB PO PRN (18:17)
[2017-04-19] MEDS: Polyethylene Glycol 3350 17 GM Packet PO SCH (18:20)
[2017-04-19] MEDS: Atorvastatin Calcium 20 MG TAB PO SCH (21:11)
[2017-04-20] MEDS: D5 1/4 NS 1,000 ML IV SCH ×2 (04:51→17:36)
[2017-04-20 05:17] LABS: #Eosinphils 0.1 thou/uL (0.0-0.7); #Lymphocytes 0.8 thou/uL (1.20-3.40); #Monocytes 0.9 thou/uL (0.11-0.59); #Neutrophils 8.3 thou/uL (1.40-6.50); %Basophils 0.1 % (0.0-1.0); %Eosinophils 1.3 % (0.0-10.0); %Lymphocytes 7.9 % (21.0-51.0); %Neutrophils 81.7 % (42.0-75.0); Hemoglobin 9.8 g/dL (14.0-18.0); Mean Corpuscular HGB CONC 31.6 g/dL (32.0-36.0); Mean Corpuscular Hemoglobin 31.3 pg (27.0-31.0); Mean Corpuscular Volume 98.9 fl (80.0-94.0); Mean Platelet Volume 8.3 fL (7.4-10.4); Platelet Count 212 thou/uL (130-400); RBC Distribution Width 16.6 % (11.5-14.5); Red Blood Cell (RBC) Count 3.15 mill/uL (4.70-6.10); White Blood Cell (WBC) Count 10.2 thou/uL (4.8-10.8)
[2017-04-20 05:24] LABS: Anion Gap 12 mmol/L (10-20); BUN (Urea Nitrogen) 28 mg/dL (8.4-25.7); Calc. Creatinine Clearance 16 mL/min (70-130); Calcium 8.8 mg/dL (7.8-10.44); Carbon Dioxide 30 mmol/L (23-31); Chloride 97 mmol/L (98-107); Estimated GFR-MDRD 17; Glucose 286 mg/dL (83-110); Potassium 4.3 mmol/L (3.5-5.1); Sodium 135 mmol/L (136-145)
[2017-04-20] MEDS: Enoxaparin Sodium 30 MG/0.3 ML SYRINGE SC SCH (05:58)
--- NOTE | 2017-04-20 09:06 | PRG ---
DATE OF SERVICE: 04/20/2017 SERVICE: Renal Medicine. SUBJECTIVE: Mr. Vaz is an 81-year-old white male with ESRD being followed up for his [facility] hemodialysis by the renal service. Yesterday, he was quite confused. For that reason, we stopped all his pain medications and his gabapentin. This morning, he is feeling better. He is more awake. He is more alert per se. He still has some limited range of motion of the right upper extremity du e to pain in the right shoulder joint. No other complaints. Denies any chest pain, shortness of arnol ath. OBJECTIVE: VITAL SIGNS: Blood pressure is 127/53, heart rate 82, respiratory rate 20, temperature 97.7, pulse o x 97%. GENERAL: Awake, alert, comfortable, not in distress. SKIN: Adequate turgor. HEENT: He has pinkish conjunctivae, anicteric sclerae. NECK: No neck mass, no carotid bruits, no JVD. CHEST: No deformities. LUNGS: Clear breath sounds. No wheezing, no crackles. HEART: Normal sinus rhythm. No murmurs, no gallops, no rubs. ABDOMEN: Globular, soft, nontender, no masses. EXTREMITIES: No edema. Limited range of motion in right upper extremity. MEDICATIONS: Of 04/20/2017 was reviewed. LABORATORY DATA: Of 04/20/2017, white count 10.2, hemoglobin 9.8. Sodium 135, potassium 4.3, chlori de 97, carbon dioxide 30, BUN 28, creatinine 3.52, glucose 286, calcium 8.8. ASSESSMENT AND PLAN: 1. End-stage renal disease, stable. Tolerating current hemodialysis regimen. We will plan to wiliam nue the current dialysis regimen. No changes to be made, again fluid removal only as tolerated. 2. Confusion - drug induced. Off all his pain medications. Mentation is noted to be dramatically i mproved without pain medication without the gabapentin. In the near future, we can introduce the lela n medication at a smaller dose. 3. Anemia, received 2 units of packed RBC. We will continue with Epogen with this patient. This morning, no indication for any emergent dialysis or blood transfusion. Overall, I agree with cu rrent management.
[2017-04-20] MEDS: Polyethylene Glycol 3350 17 GM Packet PO SCH (09:43)
[2017-04-20] MEDS: Megestrol Acetate 800 MG/20 ML UDCUP PO SCH ×2 (09:43→21:13)
[2017-04-20] MEDS: Sevelamer Carbonate 800 MG TAB PO SCH ×3 (09:44→17:58)
[2017-04-20] MEDS: Docusate 100 MG CAP PO SCH ×2 (09:44→21:12)
[2017-04-20] MEDS: Amiodarone 200 MG TAB PO SCH (09:44)
[2017-04-20] MEDS: HumaLOG 300 UNITS/3 ML VIAL SC PRN (12:22)
--- NOTE | 2017-04-20 13:44 | PDOC.PN ---
- Subjective Encounter Start Date: 04/20/17 Encounter Start Time: 13:43 Subjective: Pt seen and examined for , Anemia ESRD on HD -: Pt denies any complain - Objective MAR Reviewed: Yes Vital Signs & Weight: Vital Signs (12 hours) Temp Pulse Pulse Pulse Resp BP BP 04/20/17 11:50 98.1 F 83 20 04/20/17 08:35 88 89 109/44 L 98/44 L 04/20/17 07:05 97.7 F 82 20 04/20/17 03:58 97.8 F 80 16 BP Pulse Ox 04/20/17 11:50 113/54 L 98 04/20/17 08:35 04/20/17 07:05 127/53 L 97 04/20/17 03:58 123/56 L 96 Weight Admit Weight 146 lb 4 oz Weight 160 lb I&O: 04/19/17 04/20/17 04/21/17 06:59 06:59 06:59 Intake Total 1445 1580 Output Total 0 0 Balance 1445 1580 Result Diagrams: 04/20/17 04:53 04/20/17 04:53 Additional Labs: Accuchecks 04/20/17 04/20/17 04/19/17 11:51 05:34 20:38 POC Glucose 308 H 243 H 227 H 04/19/17 04/19/17 16:52 11:43 POC Glucose 221 H 135 H Radiology Reviewed by me: Yes Phys Exam - Physical Examination HEENT: PERRLA, moist MMs, sclera anicteric, TM's clear, oral pharynx no lesions , 2+ tonsils Neck: no nodes, no JVD, supple, full ROM Respiratory: no wheezing, no rales, no rhonchi, wheezing present, clear to auscultation bilateral Cardiovascular: RRR, no significant murmur, no rub, gallop, irregular Gastrointestinal: soft, non-tender, no distention, positive bowel sounds Musculoskeletal: no edema, pulses present, edema present Neurological: non-focal, normal sensation, moves all 4 limbs Psychiatric: normal affect, A&O x 3 Skin: no rash, normal turgor, cap refill <2 seconds Dx/Plan (1) Gram-positive bacteremia Code(s): R78.81 - BACTEREMIA Status: Resolved Comment: Cornybacterium 2/ 2.Likley contamination (2) AICD (automatic cardioverter/defibrillator) present Code(s): Z95.810 - PRESENCE OF AUTOMATIC (IMPLANTABLE) CARDIAC DEFIBRILLATOR Status: Chronic (3) Ischemic cardiomyopathy Code(s): I25.5 - ISCHEMIC CARDIOMYOPATHY Status: Chronic (4) CHF (congestive heart failure), NYHA class III Code(s): I50.9 - HEART FAILURE, UNSPECIFIED Status: Acute Qualifiers: Congestive heart failure type: systolic Congestive heart failure chronicity : chronic Qualified Code(s): I50.22 - Chronic systolic (congestive) heart failure (5) Community acquired bacterial pneumonia Code(s): J15.9 - UNSPECIFIED BACTERIAL PNEUMONIA Status: Resolved (6) Hypoglycemia due to insulin Code(s): E16.0 - DRUG-INDUCED HYPOGLYCEMIA WITHOUT COMA; T38.3X5A - ADVERSE EFFECT OF INSULIN AND ORAL HYPOGLYCEMIC DRUGS, INIT Status: Acute - Plan DVT proph w/heparin, DVT proph w/lovenox 1) continue Aspirin, Statin for ischemic Cadiomyopathy -: 2) Hypoglycemia improved -: 3) ESRD on HD -: 4) Disposition rehab * . Review of Systems - Review of Systems Cardiovascular: negative: chest pain, palpitations, orthopnea, paroxysmal nocturnal dyspnea, edema, light headedness, other Gastrointestinal: negative: Nausea, Vomiting, Abdominal Pain, Diarrhea, Constipation, Melena, Hematochezia, Other Genitourinary: negative: Dysuria, Frequency, Incontinence, Hematuria, Retention , Other Musculoskeletal: negative: Neck Pain, Shoulder Pain, Arm Pain, Back Pain, Hand Pain, Leg Pain, Foot Pain, Other - Medications/Allergies Allergies/Adverse Reactions: Allergies Allergy/AdvReac Type Severity Reaction Status Date / Time No Known Allergies Allergy Verified 04/15/17 01:37 Medications: Current Medications Acetaminophen (Tylenol) 650 mg PO Q4H PRN PRN Reason: Headache/Fever or Pain Last Admin: 04/19/17 18:17 Dose: 650 mg Al Hydroxide/Mg Hydroxide (Maalox) 30 ml PO Q6H PRN PRN Reason: Heartburn or Indigestion Amiodarone HCl (Cordarone) 400 mg PO DAILY [facility] Last Admin: 04/20/17 09:44 Dose: 400 mg Aspirin (Aspirin Chewable) 81 mg PO DAILY [facility] Last Admin: 04/20/17 09:44 Dose: 81 mg Atorvastatin Calcium (Lipitor) 20 mg PO HS [facility] Last Admin: 04/19/17 21:11 Dose: 20 mg Bisacodyl (Dulcolax) 10 mg [place] DAILYPRN PRN PRN Reason: Constipation Calcium Carbonate (Tums) 1,000 mg PO Q6H PRN PRN Reason: Indigestion Dextrose/Water (Dextrose 50%) 25 gm SLOW IVP PRN PRN PRN Reason: Hypoglycemia Last Admin: 04/18/17 16:37 Dose: 25 gm Docusate Sodium (Colace) 200 mg PO BID [facility] Last Admin: 04/20/17 09:44 Dose: 200 mg Enoxaparin Sodium (Lovenox) 30 mg SC 0600 [facility] Last Admin: 04/20/17 05:58 Dose: 30 mg Epoetin Ferdinand (Procrit) 7,500 units SC Q7D@1300 [facility] Last Admin: 04/17/17 13:51 Dose: 7,500 units Glucagon (Glucagon) 1 mg IM PRN PRN PRN Reason: Hypoglycemia Guaifenesin (Robitussin) 200 mg PO Q4H PRN PRN Reason: Cough Dextrose/Water (D5w) 1,000 mls @ 0 mls/hr IV .Q0M PRN; As Directed PRN Reason: Hypoglycemia Dextrose/Sodium Chloride (D5 1/4 Ns) 1,000 mls @ 55 mls/hr IV .[id number] [facility] Last Admin: 04/20/17 04:51 Dose: Not Given Insulin Human Lispro (Humalog) 0 units SC .MODERATE SLIDING SC PRN PRN Reason: Moderate Correctional Scale Last Admin: 04/20/17 12:22 Dose: 8 unit Insulin Human Lispro (Humalog) 0 units SC .BEDTIME SLIDING SC PRN PRN Reason: Bedtime Correctional Scale Lorazepam (Ativan) 0.5 mg PO DAILY PRN PRN Reason: Anxiety Last Admin: 04/16/17 14:31 Dose: 0.5 mg Magnesium Hydroxide (Milk Of Magnesium) 30 ml PO DAILY PRN PRN Reason: Constipation Megestrol Acetate (Megace) 200 mg PO BID [facility] Last Admin: 04/20/17 09:43 Dose: 200 mg Ondansetron HCl (Zofran Odt) 4 mg PO Q8H PRN PRN Reason: Nausea/Vomiting Ondansetron HCl (Zofran) 4 mg IVP Q6H PRN PRN Reason: Nausea/Vomiting Pantoprazole Sodium (Protonix) 40 mg PO DAILY [facility] Last Admin: 04/20/17 09:44 Dose: 40 mg Polyethylene Glycol (Miralax) 17 gm PO DAILY [facility] Last Admin: 04/20/17 09:43 Dose: 17 gm Sevelamer Carbonate (Renvela) 1,600 mg PO TID-WM [facility] Last Admin: 04/20/17 12:20 Dose: 1,600 mg Sodium Chloride ([place] [facility] [place] 0.65%) 0 ml EA NARE Q2H PRN PRN Reason: Nasal Dryness
[2017-04-20] MEDS: Atorvastatin Calcium 20 MG TAB PO SCH (21:12)
[2017-04-21] MEDS: Diabetic Tussin 200 MG/10 ML UDCUP PO PRN (03:03)
[2017-04-21] MEDS: Enoxaparin Sodium 30 MG/0.3 ML SYRINGE SC SCH (05:20)
[2017-04-21 10:06] VITALS: BMI 26.8
[2017-04-21] MEDS: Amiodarone 200 MG TAB PO SCH (10:42)
[2017-04-21] MEDS: Sevelamer Carbonate 800 MG TAB PO SCH ×3 (10:42→17:55)
[2017-04-21] MEDS: Polyethylene Glycol 3350 17 GM Packet PO SCH (10:43)
[2017-04-21] MEDS: Docusate 100 MG CAP PO SCH ×2 (10:43→21:12)
[2017-04-21] MEDS: Megestrol Acetate 800 MG/20 ML UDCUP PO SCH ×2 (10:43→21:10)
--- NOTE | 2017-04-21 10:52 | PRG ---
DATE OF SERVICE: 04/21/2017 SERVICE: Renal Medicine. SUBJECTIVE: Mr. Vaz is an 81-year-old white male followed up for his ESRD. He is currently un dergoing hemodialysis and I am at that time, supervising his dialysis. He is less confused today. P jolene note, adjustment with his medications were done due to the fact that he was getting confused wh en he is on the pain medications. No other complaints. OBJECTIVE: VITAL SIGNS: Blood pressure is ranging from 119-185/94, heart rate 86, respiratory rate 18, temperat ure 97.8, pulse ox 96%. GENERAL: He is awake, lethargic, not in overt distress. SKIN: Adequate turgor. HEENT: Slightly pale conjunctivae, anicteric sclerae. NECK: No neck mass, no carotid bruits. No JVD. CHEST: No deformities. LUNGS: Clear breath sounds, no wheezing or crackles. HEART: Normal sinus rhythm. No murmur, no gallops or rubs. ABDOMEN: Globular, soft, nontender. EXTREMITIES: No edema, no deformities. Limited range of motion of right shoulder joint. MEDICATIONS: Of 04/21/2017 was reviewed. LABORATORY DATA: Of 04/20/2017, white count 10.2, hemoglobin 9.8. Sodium 135, potassium 4.3, chlori de 97, carbon dioxide 30, BUN 28, creatinine 3.52, glucose 286, calcium 8.8. ASSESSMENT AND PLAN: 1. End-stage renal disease, stable. Tolerating current hemodialysis regimen. We will continue , Monday, Monday dialysis. Again, fluid removal only as tolerated. 2. Anemia, continuing weekly Epogen with this patient. Adjust as needed. 3. Chronic right joint shoulder pain - supportive care. 4. Confusion, much improved with discontinuation of pain medications and gabapentin. Agree with current management.
[2017-04-21] MEDS ORDERED: hydrALAZINE 20 MG/ML VIAL SLOW IVP PRN (11:47)
[2017-04-21] MEDS ORDERED: hydrALAZINE 25 MG TAB PO SCH (12:00)
--- NOTE | 2017-04-21 14:31 | PDOC.PN ---
- Subjective Encounter Start Date: 04/21/17 Encounter Start Time: 14:29 Subjective: Pt seen and examined for ESRD on HD -: Pt denies any complain - Objective MAR Reviewed: Yes Vital Signs & Weight: Vital Signs (12 hours) Temp Pulse Resp BP BP Pulse Ox 04/21/17 14:04 164/74 H 04/21/17 13:11 92 194/91 H 04/21/17 11:57 92 194/91 H 04/21/17 10:41 97.6 F 92 18 189/80 H 100 04/21/17 07:05 97.8 F 86 18 185/94 H 96 04/21/17 04:26 94 L 04/21/17 04:00 98.7 F 116 H 16 119/54 L 94 L Weight Admit Weight 146 lb 4 oz Weight 151 lb 4.8 oz I&O: 04/20/17 04/21/17 04/22/17 06:59 06:59 06:59 Intake Total 1580 850 Output Total 0 Balance 1580 850 Result Diagrams: 04/20/17 04:53 04/20/17 04:53 Additional Labs: Accuchecks 04/21/17 04/21/17 04/20/17 10:56 06:05 20:14 POC Glucose 122 H 137 H 80 04/20/17 16:10 POC Glucose 120 H Phys Exam - Physical Examination HEENT: PERRLA, moist MMs, sclera anicteric, TM's clear, oral pharynx no lesions , 2+ tonsils Neck: no nodes, no JVD, supple, full ROM Respiratory: no wheezing, no rales, no rhonchi, wheezing present, clear to auscultation bilateral Gastrointestinal: soft, non-tender, no distention, positive bowel sounds Musculoskeletal: no edema, pulses present, edema present Neurological: non-focal, normal sensation, moves all 4 limbs Psychiatric: normal affect, A&O x 3 Skin: no rash, normal turgor, cap refill <2 seconds Dx/Plan (1) Gram-positive bacteremia Code(s): R78.81 - BACTEREMIA Status: Resolved Comment: Cornybacterium 2/ 2.Likley contamination (2) AICD (automatic cardioverter/defibrillator) present Code(s): Z95.810 - PRESENCE OF AUTOMATIC (IMPLANTABLE) CARDIAC DEFIBRILLATOR Status: Chronic (3) Ischemic cardiomyopathy Code(s): I25.5 - ISCHEMIC CARDIOMYOPATHY Status: Chronic (4) CHF (congestive heart failure), NYHA class III Code(s): I50.9 - HEART FAILURE, UNSPECIFIED Status: Acute Qualifiers: Congestive heart failure type: systolic Congestive heart failure chronicity : chronic Qualified Code(s): I50.22 - Chronic systolic (congestive) heart failure (5) Hypoglycemia due to insulin Code(s): E16.0 - DRUG-INDUCED HYPOGLYCEMIA WITHOUT COMA; T38.3X5A - ADVERSE EFFECT OF INSULIN AND ORAL HYPOGLYCEMIC DRUGS, INIT Status: Acute - Plan DVT proph w/lovenox Continue Current management -: HD on monday , monday,Monday -: PT consulted * .
[2017-04-21] MEDS: HumaLOG 300 UNITS/3 ML VIAL SC PRN (17:18)
[2017-04-21] MEDS: hydrALAZINE 25 MG TAB PO SCH (21:11)
[2017-04-21] MEDS: Atorvastatin Calcium 20 MG TAB PO SCH (21:12)
[2017-04-22] MEDS: Enoxaparin Sodium 30 MG/0.3 ML SYRINGE SC SCH (05:19)
--- NOTE | 2017-04-22 07:18 | PDOC.PN ---
- Subjective Encounter Start Date: 04/22/17 Encounter Start Time: 08:00 Subjective: No complaints this morning. No Fever. Shoulder/arm sore only with movement. - Objective MAR Reviewed: Yes Vital Signs & Weight: Vital Signs (12 hours) Temp Pulse Resp BP BP Pulse Ox 04/22/17 05:25 97.6 F 90 18 96/57 L 93 L 04/22/17 00:00 98.5 F 86 16 132/56 L 94 L 04/21/17 21:11 83 136/58 L 04/21/17 20:00 98.7 F 83 20 96 Weight Admit Weight 146 lb 4 oz Weight 2.392 oz I&O: 04/21/17 04/22/17 04/23/17 06:59 06:59 06:59 Intake Total 850 650 Balance 850 650 Result Diagrams: 04/20/17 04:53 04/20/17 04:53 Additional Labs: Accuchecks 04/22/17 04/21/17 04/21/17 05:22 19:33 16:28 POC Glucose 123 H 146 H 224 H 04/21/17 10:56 POC Glucose 122 H Phys Exam - Physical Examination Constitutional: NAD HEENT: moist MMs Respiratory: no wheezing, no rales, no rhonchi Cardiovascular: RRR, no significant murmur Gastrointestinal: soft, positive bowel sounds Neurological: non-focal, moves all 4 limbs Psychiatric: normal affect Deviation from normal: incision on right upper arm with alton in place, scab, no redness or pus Dx/Plan (1) Gram-positive bacteremia Code(s): R78.81 - BACTEREMIA Status: Acute Comment: Cornybacterium 2/2. Likely contamination. Repeat blood cultures still uncollected, will get them if Dr. James still wants them. (2) Traumatic hematoma of right upper arm Code(s): S40.021A - CONTUSION OF RIGHT UPPER ARM, INITIAL ENCOUNTER Status: Acute Comment: s/p Surgical exploration with necrotizing fasciitis rulled out (3) Ischemic cardiomyopathy Code(s): I25.5 - ISCHEMIC CARDIOMYOPATHY Status: Chronic (4) CHF (congestive heart failure), NYHA class III Code(s): I50.9 - HEART FAILURE, UNSPECIFIED Status: Chronic Qualifiers: Congestive heart failure type: systolic Congestive heart failure chronicity : chronic Qualified Code(s): I50.22 - Chronic systolic (congestive) heart failure (5) Hypoglycemia due to insulin Code(s): E16.0 - DRUG-INDUCED HYPOGLYCEMIA WITHOUT COMA; T38.3X5A - ADVERSE EFFECT OF INSULIN AND ORAL HYPOGLYCEMIC DRUGS, INIT Status: Resolved (6) Anemia in chronic kidney disease (CKD) Code(s): N18.9 - CHRONIC KIDNEY DISEASE, UNSPECIFIED; D63.1 - ANEMIA IN CHRONIC KIDNEY DISEASE Status: Chronic (7) CAD (coronary artery disease) Code(s): I25.10 - ATHSCL HEART DISEASE OF [place] CORONARY ARTERY W/O ANG PCTRS Status: Chronic (8) Diabetes type 2, controlled Code(s): E11.9 - TYPE 2 DIABETES MELLITUS WITHOUT COMPLICATIONS Status: Chronic Qualifiers: Diabetes mellitus complication status: with kidney complications Diabetes mellitus complication detail: with chronic kidney disease Diabetes mellitus bakery worker insulin use: with nursing home use Chronic kidney disease stage: on chronic dialysis Qualified Code(s): E11.22 - Type 2 diabetes mellitus with diabetic chronic kidney disease; N18.6 - End stage renal disease; N18.6 - End stage renal disease; N18.6 - End stage renal disease; N18.6 - End stage renal disease; Z79.4 - manager sound (current) use of insulin; Z79.4 - manager sound (current ) use of insulin; Z79.4 - MCC (current) use of insulin; Z79.4 - MCC (current) use of insulin; Z99.2 - Dependence on renal dialysis; Z99.2 - Dependence on renal dialysis; Z99.2 - Dependence on renal dialysis; Z99.2 - Dependence on renal dialysis (9) ESRD (end stage renal disease) on dialysis Code(s): N18.6 - END STAGE RENAL DISEASE; Z99.2 - DEPENDENCE ON RENAL DIALYSIS Status: Chronic - Plan cont current plan of care, PT/OT, DVT proph w/SCDs rehab placement vs. SNF once ok'd to d/c per Dr. James. I believe patient -: came from a facility. * . - Discharge Day Encounter end time: 08:30
[2017-04-22] MEDS: Sevelamer Carbonate 800 MG TAB PO SCH ×3 (07:55→17:24)
[2017-04-22] MEDS: Polyethylene Glycol 3350 17 GM Packet PO SCH (07:56)
[2017-04-22] MEDS: Docusate 100 MG CAP PO SCH ×2 (08:00→20:02)
[2017-04-22] MEDS: Amiodarone 200 MG TAB PO SCH (08:01)
[2017-04-22] MEDS: hydrALAZINE 25 MG TAB PO SCH ×2 (08:02→20:02)
[2017-04-22] MEDS: Megestrol Acetate 800 MG/20 ML UDCUP PO SCH ×2 (08:02→20:07)
[2017-04-22] MEDS: Atorvastatin Calcium 20 MG TAB PO SCH (20:07)
[2017-04-23] MEDS: Enoxaparin Sodium 30 MG/0.3 ML SYRINGE SC SCH (05:24)
[2017-04-23] MEDS: Megestrol Acetate 800 MG/20 ML UDCUP PO SCH ×2 (08:32→20:12)
[2017-04-23] MEDS: Docusate 100 MG CAP PO SCH ×2 (08:33→20:12)
[2017-04-23] MEDS: Amiodarone 200 MG TAB PO SCH (08:33)
[2017-04-23] MEDS: Sevelamer Carbonate 800 MG TAB PO SCH ×3 (08:33→17:09)
[2017-04-23] MEDS: hydrALAZINE 25 MG TAB PO SCH ×2 (08:34→20:14)
[2017-04-23] MEDS: Polyethylene Glycol 3350 17 GM Packet PO SCH (08:34)
--- NOTE | 2017-04-23 11:12 | PRG ---
DATE OF SERVICE: 04/23/2017 SERVICE: Renal Medicine. SUBJECTIVE: Mr. Guillermo Vaz is an 81-year-old white male with ESRD and being followed by the [facility] for his maintenance hemodialysis. This morning, he voices no new complaints. His appetite is fair. His diffuse myalgia is improved. The patient denies any chest pain or shortness of breath . PHYSICAL EXAMINATION: VITAL SIGNS: Blood pressure is 134/58, heart rate 97, respiratory rate 16, temperature 98.4, pulse o x 94%. GENERAL: Awake, sitting comfortable, not in overt distress. SKIN: Adequate turgor. HEENT: He has a slightly pale conjunctivae, anicteric sclerae. NECK: No neck mass, no carotid bruits, no JVD. CHEST: No deformities. LUNGS: Clear breath sounds. No wheezing, no crackles. HEART: Normal sinus rhythm. No murmurs, no gallops, no rubs. ABDOMEN: Globular, soft, nontender, no masses. EXTREMITIES: No edema, no deformities. Limited range of motion in right shoulder joint. MEDICATIONS: Of 04/23/2017 was reviewed. LABORATORY DATA: Of 04/20/2017, white count 10.2, hemoglobin 9.8. On 04/23/2017, glucose is 149. O n 04/20/2017, potassium 4.3, creatinine 3.52, sodium 135. ASSESSMENT AND PLAN: 1. End-stage renal disease, stable. No indication for any dialytic intervention. Our plan is to re sume back dialysis tomorrow - on a Monday, Monday, Monday schedule. Fluid removal only as tolerat ed. 2. Anemia. Recheck CBC in a.m. Continuing weekly Epogen, p.r.n. blood transfusion. 3. Mental status change, resolved secondary from his pain medications. This patient may eventually need a long term placement. Recheck base met and CBC tomorrow.
[2017-04-23] MEDS: Acetaminophen 325 MG TAB PO PRN (11:48)
--- NOTE | 2017-04-23 15:59 | PDOC.PN ---
- Subjective Encounter Start Date: 04/23/17 Encounter Start Time: 15:58 Subjective: seen and examined --spiked temp upto 101.5 today - Objective Vital Signs & Weight: Vital Signs (12 hours) Temp Pulse Pulse Pulse Resp BP BP 04/23/17 12:30 99.5 F 04/23/17 11:01 101.5 F H 93 24 H 04/23/17 08:46 104 H 104 H 112/45 L 04/23/17 08:34 97 134/58 L 04/23/17 08:00 98.4 F 97 16 04/23/17 07:06 98.4 F 97 24 H 04/23/17 04:00 99.1 F 84 16 BP BP Pulse Ox 04/23/17 12:30 04/23/17 11:01 110/46 L 96 04/23/17 08:46 122/57 L 04/23/17 08:34 04/23/17 08:00 04/23/17 07:06 134/58 L 94 L 04/23/17 04:00 115/50 L 95 Weight Admit Weight 146 lb 4 oz Weight 148 lb 9.465 oz I&O: 04/22/17 04/23/17 04/24/17 06:59 06:59 06:59 Intake Total 650 540 Balance 650 540 Result Diagrams: 04/20/17 04:53 04/20/17 04:53 Additional Labs: Accuchecks 04/23/17 04/23/17 04/22/17 10:59 05:27 20:31 POC Glucose 145 H 149 H 185 H 04/22/17 15:22 POC Glucose 138 H Phys Exam - Physical Examination Constitutional: NAD HEENT: PERRLA, moist MMs, sclera anicteric, TM's clear Neck: no nodes, no JVD, supple, full ROM Respiratory: no wheezing, no rales, no rhonchi, clear to auscultation bilateral Cardiovascular: RRR, no significant murmur, no rub Dx/Plan (1) Fever Code(s): R50.9 - FEVER, UNSPECIFIED Status: Acute (2) Ischemic cardiomyopathy Code(s): I25.5 - ISCHEMIC CARDIOMYOPATHY Status: Chronic (3) Hyperkalemia Code(s): E87.5 - HYPERKALEMIA Status: Acute (4) Anemia in chronic kidney disease (CKD) Code(s): N18.9 - CHRONIC KIDNEY DISEASE, UNSPECIFIED; D63.1 - ANEMIA IN CHRONIC KIDNEY DISEASE Status: Chronic (5) CHF (congestive heart failure), NYHA class III Code(s): I50.9 - HEART FAILURE, UNSPECIFIED Status: Chronic Qualifiers: Congestive heart failure type: systolic Congestive heart failure chronicity : chronic Qualified Code(s): I50.22 - Chronic systolic (congestive) heart failure (6) Diabetes type 2, controlled Code(s): E11.9 - TYPE 2 DIABETES MELLITUS WITHOUT COMPLICATIONS Status: Chronic Qualifiers: Diabetes mellitus complication status: with kidney complications Diabetes mellitus complication detail: with chronic kidney disease Diabetes mellitus custodial insulin use: with photography professor use Chronic kidney disease stage: on chronic dialysis Qualified Code(s): E11.22 - Type 2 diabetes mellitus with diabetic chronic kidney disease; N18.6 - End stage renal disease; N18.6 - End stage renal disease; N18.6 - End stage renal disease; N18.6 - End stage renal disease; Z79.4 - director enterprise sales (current) use of insulin; Z79.4 - half-way (current ) use of insulin; Z79.4 - half-way (current) use of insulin; Z79.4 - director enterprise sales (current) use of insulin; Z99.2 - Dependence on renal dialysis; Z99.2 - Dependence on renal dialysis; Z99.2 - Dependence on renal dialysis; Z99.2 - Dependence on renal dialysis (7) ESRD (end stage renal disease) on dialysis Code(s): N18.6 - END STAGE RENAL DISEASE; Z99.2 - DEPENDENCE ON RENAL DIALYSIS Status: Chronic (8) Cellulitis Code(s): L03.90 - CELLULITIS, UNSPECIFIED Status: Acute - Plan continue antibiotics, PT/OT, social security benefits interviewer Blood cultures x2 -: Renal and ID following -: Will start empiric antibiotics * .
[2017-04-23] MEDS ORDERED: Vancomycin HCl 1 GM in Premix Bag 1 BAG IVPB SCH (18:30)
[2017-04-23] MEDS ORDERED: CEFAZOLIN 1 GM in Sodium Chloride 0.9% 100 ML IVPB SCH (18:30)
[2017-04-23] MEDS: CEFAZOLIN 1 GM, Syringe 2.5 ML in Sterile Water 7.5 ML SLOW IVP SCH (20:11)
[2017-04-23] MEDS: Atorvastatin Calcium 20 MG TAB PO SCH (20:12)
[2017-04-23] MEDS ORDERED: Furosemide 40 MG/4 ML VIAL SLOW IVP SCH (21:30)
--- NOTE | 2017-04-23 21:31 | RAD ---
AP VIEW OF THE CHEST: INDICATIONS: Abnormal lung sounds. COMPARISON: Prior exam dated 04/14/2017. FINDINGS: There is worsening cardiomegaly, pulmonary vascular congestion, and infrahilar air space opacities, s uspicious for edema. There are small bilateral pleural effusions. AICD and midline sternotomy taylor es are similar appearing. There has been interval resection of the right proximal humerus. Surgical skin alton are seen within the soft tissues of the right upper extremity. IMPRESSION: 1. Findings suggesting congestive heart failure. There is worsening cardiomegaly, pulmonary vascula r congestion, and infrahilar air space opacity, suspicious for edema. There are worsening small bila teral pleural effusions. 2. Partial resection of the right proximal humerus. POS: [facility]
[2017-04-24 04:23] LABS: #Eosinphils 0.1 thou/uL (0.0-0.7); #Neutrophils 6.6 thou/uL (1.40-6.50); %Basophils 0.1 % (0.0-1.0); %Eosinophils 0.7 % (0.0-10.0); %Lymphocytes 11.4 % (21.0-51.0); %Monocytes 11.6 % (0.0-10.0); %Neutrophils 76.2 % (42.0-75.0); Hemoglobin 9.8 g/dL (14.0-18.0); Mean Corpuscular HGB CONC 30.4 g/dL (32.0-36.0); Mean Corpuscular Hemoglobin 31.2 pg (27.0-31.0); Mean Platelet Volume 8.3 fL (7.4-10.4); Platelet Count 184 thou/uL (130-400); RBC Distribution Width 17.6 % (11.5-14.5); Red Blood Cell (RBC) Count 3.14 mill/uL (4.70-6.10); White Blood Cell (WBC) Count 8.6 thou/uL (4.8-10.8)
[2017-04-24 04:40] LABS: Anion Gap 18 mmol/L (10-20); BUN (Urea Nitrogen) 40 mg/dL (8.4-25.7); Calc. Creatinine Clearance 10 mL/min (70-130); Calcium 8.3 mg/dL (7.8-10.44); Carbon Dioxide 26 mmol/L (23-31); Chloride 94 mmol/L (98-107); Estimated GFR-MDRD 10; Glucose 171 mg/dL (83-110); Potassium 4.5 mmol/L (3.5-5.1); Sodium 133 mmol/L (136-145)
[2017-04-24] MEDS: Enoxaparin Sodium 30 MG/0.3 ML SYRINGE SC SCH (06:16)
--- NOTE | 2017-04-24 07:36 | PDOC.PN ---
- Subjective Encounter Start Date: 04/24/17 Encounter Start Time: 08:45 Subjective: Some pain in right toe, no other complaints. Didn't have any symptoms -: with high fever yesterday. None since. - Objective MAR Reviewed: Yes Vital Signs & Weight: Vital Signs (12 hours) Temp Pulse Resp BP Pulse Ox 04/24/17 04:00 98.2 F 72 16 143/65 H 98 04/24/17 00:00 97.8 F 73 16 129/60 97 04/23/17 20:15 98.5 F 85 16 95 04/23/17 20:14 85 Weight Admit Weight 146 lb 4 oz Weight 154 lb 8.705 oz I&O: 04/23/17 04/24/17 04/25/17 06:59 06:59 06:59 Intake Total 540 640 Output Total 0 Balance 540 640 Result Diagrams: 04/24/17 03:55 04/24/17 03:55 Additional Labs: Accuchecks 04/24/17 04/23/17 04/23/17 05:18 20:35 15:59 POC Glucose 166 H 249 H 185 H 04/23/17 10:59 POC Glucose 145 H Phys Exam - Physical Examination Constitutional: NAD HEENT: moist MMs Respiratory: no wheezing, no rales, no rhonchi, clear to auscultation bilateral Cardiovascular: RRR, no significant murmur Gastrointestinal: soft, positive bowel sounds right great toe appears normal and nontender to palpation Neurological: non-focal, moves all 4 limbs Psychiatric: normal affect, A&O x 3 Dx/Plan (1) Gram-positive bacteremia Code(s): R78.81 - BACTEREMIA Status: Acute Comment: Cornybacterium 2/2. Likely contamination? Repeat fever off abx so repeat Blood culture drawn and Ancef/Vanc given yesterday. (2) Traumatic hematoma of right upper arm Code(s): S40.021A - CONTUSION OF RIGHT UPPER ARM, INITIAL ENCOUNTER Status: Acute Comment: s/p Surgical exploration with necrotizing fasciitis rulled out (3) Ischemic cardiomyopathy Code(s): I25.5 - ISCHEMIC CARDIOMYOPATHY Status: Chronic (4) CHF (congestive heart failure), NYHA class III Code(s): I50.9 - HEART FAILURE, UNSPECIFIED Status: Chronic Qualifiers: Congestive heart failure type: systolic Congestive heart failure chronicity : chronic Qualified Code(s): I50.22 - Chronic systolic (congestive) heart failure (5) Hypoglycemia due to insulin Code(s): E16.0 - DRUG-INDUCED HYPOGLYCEMIA WITHOUT COMA; T38.3X5A - ADVERSE EFFECT OF INSULIN AND ORAL HYPOGLYCEMIC DRUGS, INIT Status: Resolved (6) Anemia in chronic kidney disease (CKD) Code(s): N18.9 - CHRONIC KIDNEY DISEASE, UNSPECIFIED; D63.1 - ANEMIA IN CHRONIC KIDNEY DISEASE Status: Chronic (7) CAD (coronary artery disease) Code(s): I25.10 - ATHSCL HEART DISEASE OF [place] CORONARY ARTERY W/O ANG PCTRS Status: Chronic (8) Diabetes type 2, controlled Code(s): E11.9 - TYPE 2 DIABETES MELLITUS WITHOUT COMPLICATIONS Status: Chronic Qualifiers: Diabetes mellitus complication status: with kidney complications Diabetes mellitus complication detail: with chronic kidney disease Diabetes mellitus detention insulin use: with termite control service representative use Chronic kidney disease stage: on chronic dialysis Qualified Code(s): E11.22 - Type 2 diabetes mellitus with diabetic chronic kidney disease; N18.6 - End stage renal disease; N18.6 - End stage renal disease; N18.6 - End stage renal disease; N18.6 - End stage renal disease; Z79.4 - termite control service representative (current) use of insulin; Z79.4 - termite control service representative (current ) use of insulin; Z79.4 - termite control service representative (current) use of insulin; Z79.4 - halfway (current) use of insulin; Z99.2 - Dependence on renal dialysis; Z99.2 - Dependence on renal dialysis; Z99.2 - Dependence on renal dialysis; Z99.2 - Dependence on renal dialysis (9) ESRD (end stage renal disease) on dialysis Code(s): N18.6 - END STAGE RENAL DISEASE; Z99.2 - DEPENDENCE ON RENAL DIALYSIS Status: Chronic - Plan cont current plan of care, continue antibiotics, PT/OT, DVT proph w/lovenox, DVT proph w/SCDs If blood culture positive again need to consider infected pacemaker leads * . - Discharge Day Encounter end time: 09:15
--- NOTE | 2017-04-24 10:02 | PRG ---
DATE OF SERVICE: 04/24/2017 RENAL MEDICINE SUBJECTIVE: Mr. Vaz is an 81-year-old white male who has ESRD. Renal Service is following for his maintenance hemodialysis. He was febrile yesterday. Chest x-ray did not show any infiltrates e xcept for increased lung markings. This is chronic in nature. The patient voices no new complaints of chest pain or shortness of breath. PHYSICAL EXAMINATION: VITAL SIGNS: Blood pressure is 143/65, heart rate 72, respiratory rate 16, temperature 98.2, pulse o x 98%. GENERAL: Noted to be awake, not in distress, lethargic. SKIN: Adequate turgor. HEENT: Pinkish conjunctivae, anicteric sclerae. NECK: No neck mass, no carotid bruits, no JVD. CHEST: No deformities. LUNGS: Decreased breath sounds. No wheezing. HEART: Normal sinus rhythm. No murmur, no gallops, no rubs. ABDOMEN: Globular, soft, nontender. No masses. EXTREMITIES: No edema, no deformities. MEDICATIONS: Medications of 04/24/2017 was reviewed. LABORATORY DATA: Laboratories of 04/24/2017; white count 8.6, hemoglobin 9.8, hematocrit 32.2, sodiu m 133, potassium 4.5, chloride 94, carbon dioxide 26, BUN 40, creatinine 5.66, glucose 171, calcium 8 .3. Blood C&S on 04/23/2017, no growth to date. ASSESSMENT AND PLAN: 1. Fever - awaiting blood culture results. Empiric IV antibiotics. 2. End-stage renal disease, stable. The patient is tolerating dialysis. I am at the bedside superv ising his dialysis. We have removed almost 3 liters of fluid with this patient. Chest x-ray shows i ncreased lung markings. However, patient is clinically asymptomatic from congestive heart failure po int of view. 3. Anemia, currently on weekly Epogen. Continue current dosing. 4. Failure to thrive - continue supportive care. 5. Confusion, resolved.
[2017-04-24] MEDS: Acetaminophen 325 MG TAB PO PRN (12:56)
[2017-04-24] MEDS: Docusate 100 MG CAP PO SCH ×2 (12:56→22:21)
[2017-04-24] MEDS: Sevelamer Carbonate 800 MG TAB PO SCH ×3 (12:56→16:56)
[2017-04-24] MEDS: Amiodarone 200 MG TAB PO SCH (12:57)
[2017-04-24] MEDS: hydrALAZINE 25 MG TAB PO SCH ×2 (12:58→22:19)
[2017-04-24] MEDS: Polyethylene Glycol 3350 17 GM Packet PO SCH (12:59)
[2017-04-24] MEDS: Megestrol Acetate 800 MG/20 ML UDCUP PO SCH ×2 (12:59→22:21)
[2017-04-24] MEDS: CEFAZOLIN 1 GM, Syringe 2.5 ML in Sterile Water 7.5 ML SLOW IVP SCH ×3 (13:00→23:38)
[2017-04-24] MEDS: Epoetin (ESRD) 20,000 UNITS/ML SC SCH (16:58)
[2017-04-24] MEDS: Atorvastatin Calcium 20 MG TAB PO SCH (22:20)
[2017-04-25] MEDS: Enoxaparin Sodium 30 MG/0.3 ML SYRINGE SC SCH (05:04)
[2017-04-25 05:49] LABS: #Lymphocytes 0.9 thou/uL (1.20-3.40); #Monocytes 0.9 thou/uL (0.11-0.59); %Basophils 0.4 % (0.0-1.0); %Eosinophils 0.3 % (0.0-10.0); %Lymphocytes 9.3 % (21.0-51.0); %Monocytes 9.2 % (0.0-10.0); %Neutrophils 80.8 % (42.0-75.0); Hemoglobin 10.9 g/dL (14.0-18.0); Mean Corpuscular HGB CONC 30.6 g/dL (32.0-36.0); Mean Platelet Volume 8.3 fL (7.4-10.4); Platelet Count 209 thou/uL (130-400); RBC Distribution Width 17.5 % (11.5-14.5); Red Blood Cell (RBC) Count 3.51 mill/uL (4.70-6.10); White Blood Cell (WBC) Count 9.8 thou/uL (4.8-10.8)
[2017-04-25 05:52] LABS: Anion Gap 12 mmol/L (10-20); BUN (Urea Nitrogen) 27 mg/dL (8.4-25.7); Calc. Creatinine Clearance 13 mL/min (70-130); Calcium 8.7 mg/dL (7.8-10.44); Carbon Dioxide 30 mmol/L (23-31); Chloride 96 mmol/L (98-107); Estimated GFR-MDRD 13; Glucose 138 mg/dL (83-110); Potassium 4.2 mmol/L (3.5-5.1); Sodium 134 mmol/L (136-145)
[2017-04-25] MEDS: Megestrol Acetate 800 MG/20 ML UDCUP PO SCH ×2 (08:45→20:34)
[2017-04-25] MEDS: Sevelamer Carbonate 800 MG TAB PO SCH ×3 (08:47→18:10)
[2017-04-25] MEDS: hydrALAZINE 25 MG TAB PO SCH ×2 (08:47→20:34)
[2017-04-25] MEDS: Docusate 100 MG CAP PO SCH ×2 (08:48→20:33)
[2017-04-25] MEDS: Polyethylene Glycol 3350 17 GM Packet PO SCH (08:48)
[2017-04-25] MEDS: Amiodarone 200 MG TAB PO SCH (08:48)
--- NOTE | 2017-04-25 08:50 | PRG ---
DATE OF SERVICE: 04/25/2017 RENAL MEDICINE SUBJECTIVE: Mr. Vaz is an 81-year-old white male, being followed up by the Renal Service for h is maintenance hemodialysis. He underwent hemodialysis yesterday. We were able to remove 3 liters o f fluid. Chest x-ray showed increased lung markings at that time. In addition, he had intermittent fever and was empirically treated with antibiotics. He is currently on IV cefazolin. He voices no new complaints. He still has some mild shortness of breath, but much improved. OBJECTIVE: VITAL SIGNS: Blood pressure is 122/46, heart rate 88, respiratory rate 24, pulse ox 92%, temperature 99. GENERAL: Awake, supine, comfortable, not in overt distress. SKIN: Adequate turgor. HEENT: He has pinkish conjunctivae. Anicteric sclerae. NECK: No neck mass, no carotid bruits, no JVD. CHEST: No deformities. LUNGS: Decreased breath sounds. HEART: Normal sinus rhythm. No murmur, no gallops, no rubs. ABDOMEN: Globular, soft, nontender, no masses. EXTREMITIES: No edema. No deformities. MEDICATIONS: Medications of 04/25/2017 was reviewed. LABORATORY DATA: Laboratories of 04/25/2017, white count 9.8, hemoglobin 10.9. Sodium 134, potassiu m 4.2, chloride 96, carbon dioxide 30, BUN 27, creatinine 4.36, glucose 138, calcium 8.7. ASSESSMENT AND PLAN: 1. End-stage renal disease, stable, tolerating current Monday, Monday, Monday dialysis regimen. Fluid removal only as tolerated. Attempt to max out fluid removal with dialysis tomorrow. 2. Shortness of breath, multifactorial - congestive heart failure versus bronchitis. Continue maxin g out fluid removal. 3. Fever, on empiric IV antibiotics. 4. Anemia, continuing weekly Epogen. Anemia is actually improving over time. P.r.n. blood transfus ion only if hemoglobin less than 7. We will be rechecking a basic metabolic panel and CBC in a.m.
--- NOTE | 2017-04-25 10:10 | PDOC.PN ---
- Subjective Encounter Start Date: 04/25/17 Encounter Start Time: 14:30 Subjective: Patient without further fever. Some worsened SOB past 1-2 days. Coughing -: alot earlier today, better now. - Objective MAR Reviewed: Yes Vital Signs & Weight: Vital Signs (12 hours) Temp Pulse Resp BP BP Pulse Ox 04/25/17 08:47 78 141/82 H 04/25/17 07:10 99.0 F 88 24 H 122/46 L 92 L 04/25/17 04:00 97.3 F L 91 20 98/43 L 96 04/24/17 22:30 97.8 F 78 18 105/53 L 94 L 04/24/17 22:19 64 Weight Admit Weight 146 lb 4 oz Weight 149 lb 11.102 oz I&O: 04/24/17 04/25/17 04/26/17 06:59 06:59 06:59 Intake Total 640 380 Output Total 0 Balance 640 380 Result Diagrams: 04/25/17 05:16 04/25/17 05:16 Additional Labs: Accuchecks 04/25/17 04/24/17 04/24/17 05:11 22:59 16:22 POC Glucose 129 H 135 H 93 04/24/17 11:23 POC Glucose 105 Phys Exam - Physical Examination Constitutional: NAD HEENT: moist MMs Respiratory: no wheezing, no rales, no rhonchi Cardiovascular: RRR, no significant murmur Gastrointestinal: soft, positive bowel sounds Neurological: non-focal Psychiatric: normal affect, A&O x 3 Dx/Plan (1) Gram-positive bacteremia Code(s): R78.81 - BACTEREMIA Status: Acute Comment: Cornybacterium 2/2. Likely contamination? CVL d/c'd, abx d/c'd per Dr. James, blood culture pending. (2) Traumatic hematoma of right upper arm Code(s): S40.021A - CONTUSION OF RIGHT UPPER ARM, INITIAL ENCOUNTER Status: Acute Comment: s/p Surgical exploration with necrotizing fasciitis rulled out (3) Ischemic cardiomyopathy Code(s): I25.5 - ISCHEMIC CARDIOMYOPATHY Status: Chronic (4) CHF (congestive heart failure), NYHA class III Code(s): I50.9 - HEART FAILURE, UNSPECIFIED Status: Chronic Qualifiers: Congestive heart failure type: systolic Congestive heart failure chronicity : chronic Qualified Code(s): I50.22 - Chronic systolic (congestive) heart failure (5) Anemia in chronic kidney disease (CKD) Code(s): N18.9 - CHRONIC KIDNEY DISEASE, UNSPECIFIED; D63.1 - ANEMIA IN CHRONIC KIDNEY DISEASE Status: Chronic (6) CAD (coronary artery disease) Code(s): I25.10 - ATHSCL HEART DISEASE OF [place] CORONARY ARTERY W/O ANG PCTRS Status: Chronic (7) Diabetes type 2, controlled Code(s): E11.9 - TYPE 2 DIABETES MELLITUS WITHOUT COMPLICATIONS Status: Chronic Qualifiers: Diabetes mellitus complication status: with kidney complications Diabetes mellitus complication detail: with chronic kidney disease Diabetes mellitus skilled nursing insulin use: with skilled nursing use Chronic kidney disease stage: on chronic dialysis Qualified Code(s): E11.22 - Type 2 diabetes mellitus with diabetic chronic kidney disease; N18.6 - End stage renal disease; N18.6 - End stage renal disease; N18.6 - End stage renal disease; N18.6 - End stage renal disease; Z79.4 - buy boat operator (current) use of insulin; Z79.4 - FPC (current ) use of insulin; Z79.4 - FPC (current) use of insulin; Z79.4 - FPC (current) use of insulin; Z99.2 - Dependence on renal dialysis; Z99.2 - Dependence on renal dialysis; Z99.2 - Dependence on renal dialysis; Z99.2 - Dependence on renal dialysis (8) ESRD (end stage renal disease) on dialysis Code(s): N18.6 - END STAGE RENAL DISEASE; Z99.2 - DEPENDENCE ON RENAL DIALYSIS Status: Chronic - Plan cont current plan of care, continue antibiotics, DVT proph w/lovenox, DVT proph w/SCDs Dr. James will re-evaluate after blood cultures back and determine if pacer -: leads possibly infected. -: CXR for recent cough, increased WOB, and fever a few days ago. * . - Discharge Day Encounter end time: 13:00
--- NOTE | 2017-04-25 10:58 | PRG ---
DATE OF SERVICE: 04/25/2017 Mr. Vaz developed fever. He has complained that they do not let him get out of bed. He feels like he would be able to walk if he was helped with rehab, although obviously he has quite significan t weakness in lower extremities and has not walked or he cannot remember the last time he walked so I think that there is a little bit of delusional aspect to this request. He denies any headaches, cou gh intermittently. A little bit of dyspnea, no chest pain, no abdominal pain. He has no urinary out put. PHYSICAL EXAMINATION: VITAL SIGNS: T-max 101.5 2 days ago at 11:00 a.m., BP 140/82, pulse 78, respirations 20-24, O2 sat 9 2%. GENERAL: Appears chronically ill, but in no distress. He is awake quite a bit of hearing impairment . LUNGS: Cough intermittently, has a little bit of crackling in his cough and upper airways audible wi thout actually using the stethoscope. He has bilateral lung sounds with faint basilar crackles. CARDIOVASCULAR: S1, S2 with irregular rate. A soft murmur at the apex. The patient has an AICD in the left subclavian location. ABDOMEN: The abdomen is somewhat distended, but not tender. EXTREMITIES: There is edema in the right upper extremity. There is edema in the right lower extremi ty as well. There was a triple lumen catheter in the right groin. He has quite a bit of weakness in the lower extremities and in the right extremity associated with nonunion following fracture in the right shoulder. NEURO: He is awake and establishes eye contact and follows commands within some limitations. LABORATORY: White cell count is at 9.8, hemoglobin 10.9, platelets 209, 80% neutrophils. Sodium 134 , creatinine 4.36, potassium 4.2. Repeat blood cultures have been submitted from the 04/23/2017, [place] s far no growth. He is currently on cefazolin. I think that is all he is on. 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 Subcutaneous emphysema, right arm , most likely benign type with no evidence of inflammatory changes, bacteremia secondary Corynebacter ium most likely to be a contamination of the sample rather than true bacteremia, although colonizatio n of the AICD lead is not completely ruled out. Recrudescence of fever now which could be related to the above issue or another problem for example nosocomial bacteremia or fungemia associated with the right groin triple lumen catheter. Recommend removal of the triple-lumen catheter, discontinuation of antimicrobial therapy and follow up results of cultures.
[2017-04-25] MEDS: Acetaminophen 325 MG TAB PO PRN ×2 (17:15→22:19)
--- NOTE | 2017-04-25 18:33 | RAD ---
ONE VIEW CHEST: 04/25/17 COMPARISON: 04/14/17, 04/23/17. HISTORY: Cough. Shortness of breath. Fever. FINDINGS: Stable single lead defibrillator, sternotomy wires, stable cardiomegaly and atherosclerosis of the ao rta. Pulmonary vessels are slightly prominent. Patchy interstitial and alveolar opacities in the lung bases. Stable chronic changes. No pneumothorax. Stable changes involving the proximal right humerus. IMPRESSION: Persistent infiltrates. Continued surveillance. POS: [facility]
[2017-04-25] MEDS ORDERED: Haloperidol Lactate 5 MG/ML VIAL SLOW IVP PRN (19:04)
[2017-04-25] MEDS: Diabetic Tussin 200 MG/10 ML UDCUP PO PRN (20:27)
[2017-04-25] MEDS: Atorvastatin Calcium 20 MG TAB PO SCH (20:33)
[2017-04-25] MEDS ORDERED: Oseltamivir 75 MG CAP PO SCH (23:15)
[2017-04-26 06:19] LABS: #Lymphocytes 0.8 thou/uL (1.20-3.40); #Neutrophils 8.4 thou/uL (1.40-6.50); %Eosinophils 0.2 % (0.0-10.0); %Lymphocytes 8.2 % (21.0-51.0); %Monocytes 9.4 % (0.0-10.0); %Neutrophils 82.1 % (42.0-75.0); Hemoglobin 11.5 g/dL (14.0-18.0); Mean Corpuscular HGB CONC 31.1 g/dL (32.0-36.0); Mean Corpuscular Hemoglobin 31.7 pg (27.0-31.0); Mean Platelet Volume 8.4 fL (7.4-10.4); Platelet Count 202 thou/uL (130-400); RBC Distribution Width 17.5 % (11.5-14.5); Red Blood Cell (RBC) Count 3.62 mill/uL (4.70-6.10); White Blood Cell (WBC) Count 10.2 thou/uL (4.8-10.8)
[2017-04-26 06:37] LABS: Anion Gap 18 mmol/L (10-20); BUN (Urea Nitrogen) 36 mg/dL (8.4-25.7); Calc. Creatinine Clearance 11 mL/min (70-130); Calcium 8.8 mg/dL (7.8-10.44); Carbon Dioxide 26 mmol/L (23-31); Chloride 95 mmol/L (98-107); Estimated GFR-MDRD 11; Glucose 129 mg/dL (83-110); Potassium 4.8 mmol/L (3.5-5.1); Sodium 134 mmol/L (136-145)
--- NOTE | 2017-04-26 08:02 | PDOC.PN ---
- Subjective Encounter Start Date: 04/26/17 Encounter Start Time: 09:30 Subjective: Cough resolved. SOB much improved. No further fevers. - Objective MAR Reviewed: Yes Vital Signs & Weight: Vital Signs (12 hours) Temp Pulse Resp BP Pulse Ox 04/26/17 03:25 90 22 H 95 04/26/17 00:00 98.9 F 86 18 128/49 L 95 04/25/17 20:34 89 Weight Admit Weight 146 lb 4 oz Weight 147 lb 11.355 oz I&O: 04/25/17 04/26/17 04/27/17 06:59 06:59 06:59 Intake Total 380 730 Balance 380 730 Result Diagrams: 04/26/17 05:16 04/26/17 05:16 Additional Labs: Accuchecks 04/26/17 04/25/17 04/25/17 05:48 20:33 15:50 POC Glucose 126 H 163 H 162 H 04/25/17 12:07 POC Glucose 147 H Phys Exam - Physical Examination Constitutional: NAD HEENT: moist MMs Respiratory: no wheezing, no rales, no rhonchi Cardiovascular: RRR, no significant murmur Gastrointestinal: soft, non-tender, positive bowel sounds Neurological: non-focal Psychiatric: normal affect, A&O x 3 Dx/Plan (1) Influenza A Code(s): J10.1 - FLU DUE TO OTH IDENT INFLUENZA VIRUS W OTH RESP MANIFEST Status: Acute Comment: Likely source of fever and URI symptoms. Symptoms mild but given comorbidities will treat with Tamiflu. (2) Gram-positive bacteremia Code(s): R78.81 - BACTEREMIA Status: Acute Comment: Cornybacterium 2/2. Likely contamination? CVL d/c'd, abx d/c'd per Dr. James, repeat blood culture negative. (3) Traumatic hematoma of right upper arm Code(s): S40.021A - CONTUSION OF RIGHT UPPER ARM, INITIAL ENCOUNTER Status: Acute Comment: s/p Surgical exploration with necrotizing fasciitis rulled out (4) Ischemic cardiomyopathy Code(s): I25.5 - ISCHEMIC CARDIOMYOPATHY Status: Chronic (5) CHF (congestive heart failure), NYHA class III Code(s): I50.9 - HEART FAILURE, UNSPECIFIED Status: Chronic Qualifiers: Congestive heart failure type: systolic Congestive heart failure chronicity : chronic Qualified Code(s): I50.22 - Chronic systolic (congestive) heart failure (6) Anemia in chronic kidney disease (CKD) Code(s): N18.9 - CHRONIC KIDNEY DISEASE, UNSPECIFIED; D63.1 - ANEMIA IN CHRONIC KIDNEY DISEASE Status: Chronic (7) CAD (coronary artery disease) Code(s): I25.10 - ATHSCL HEART DISEASE OF [place] CORONARY ARTERY W/O ANG PCTRS Status: Chronic (8) Diabetes type 2, controlled Code(s): E11.9 - TYPE 2 DIABETES MELLITUS WITHOUT COMPLICATIONS Status: Chronic Qualifiers: Diabetes mellitus complication status: with kidney complications Diabetes mellitus complication detail: with chronic kidney disease Diabetes mellitus oysterman insulin use: with oysterman use Chronic kidney disease stage: on chronic dialysis Qualified Code(s): E11.22 - Type 2 diabetes mellitus with diabetic chronic kidney disease; N18.6 - End stage renal disease; N18.6 - End stage renal disease; N18.6 - End stage renal disease; N18.6 - End stage renal disease; Z79.4 - residential (current) use of insulin; Z79.4 - ferry terminal supervisor (current ) use of insulin; Z79.4 - ferry terminal supervisor (current) use of insulin; Z79.4 - ferry terminal supervisor (current) use of insulin; Z99.2 - Dependence on renal dialysis; Z99.2 - Dependence on renal dialysis; Z99.2 - Dependence on renal dialysis; Z99.2 - Dependence on renal dialysis (9) ESRD (end stage renal disease) on dialysis Code(s): N18.6 - END STAGE RENAL DISEASE; Z99.2 - DEPENDENCE ON RENAL DIALYSIS Status: Chronic - Plan cont current plan of care Influenza likely source of fever over the weekend. WBC normal. CXR -: unchanged. Patient tolerating well with normal O2 sats and no further -: fever. Stable for discharge back to [facility]. * . - Discharge Day Encounter end time: 10:00
[2017-04-26] MEDS: Sevelamer Carbonate 800 MG TAB PO SCH ×2 (08:39→11:01)
[2017-04-26] MEDS: Amiodarone 200 MG TAB PO SCH ×2 (08:39→11:02)
[2017-04-26] MEDS: Docusate 100 MG CAP PO SCH ×2 (08:39→11:01)
[2017-04-26] MEDS: Enoxaparin Sodium 30 MG/0.3 ML SYRINGE SC SCH ×2 (08:39→11:02)
[2017-04-26] MEDS: Megestrol Acetate 800 MG/20 ML UDCUP PO SCH ×2 (08:40→11:00)
[2017-04-26] MEDS: hydrALAZINE 25 MG TAB PO SCH ×2 (08:40→11:02)
[2017-04-26] MEDS: Oseltamivir 75 MG CAP PO SCH ×2 (08:41→09:18)
[2017-04-26] MEDS: Polyethylene Glycol 3350 17 GM Packet PO SCH ×2 (08:41→11:04)
[2017-04-26] MEDS: Acetaminophen 325 MG TAB PO PRN (09:18)
--- NOTE | 2017-04-26 09:32 | PRG ---
DATE OF SERVICE: 04/26/2017 SUBJECTIVE: Mr. Vaz is an 81-year-old white male being followed up for his maintenance hemodia lysis. He is currently undergoing dialysis. I am at the bedside supervising his dialysis. The only complaint he makes is his chronic low back pain. His shortness of breath is improved. PHYSICAL EXAMINATION: VITAL SIGNS: Blood pressure 120/49, heart rate 86, respiratory rate 18, temperature 98.9, pulse ox 9 4%. GENERAL: Noted to be awake, supine, comfortable, not in overt distress. SKIN: Adequate turgor. HEENT: Pinkish conjunctivae, anicteric sclerae. NECK: No neck mass, no carotid bruits, no JVD. CHEST: No deformities. LUNGS: Decreased breath sounds. HEART: Normal sinus rhythm. No murmur, no gallops, no rubs. ABDOMEN: Globular, soft, nontender, no masses. EXTREMITIES: No edema. MEDICATIONS: Of 04/26/2017 was reviewed. LABORATORY DATA: 04/26/2017, sodium 134, potassium 4.8, chloride 95, carbon dioxide 26, BUN 36, crea tinine 5.15, glucose 129, calcium 8.8, white count 10.2, hemoglobin 11.5. ASSESSMENT AND PLAN: 1. Anemia - clinically improving. Currently on weekly maintenance of Epogen. 2. End-stage renal disease, stable. Continue current hemodialysis regimen. Attempting 2 liter of f luid removal today. 3. Fever, resolved. The patient was given empiric IV antibiotics for this. 4. Mild shortness of breath - maxing out fluid removal with the dialysis. Overall, agree with duran nt management.
[2017-04-26 11:32] VITALS: BP 108/61; TEMP 97.4
--- NOTE | 2017-04-26 18:30 | DIS ---
PRIMARY CARE PHYSICIAN: Tank Stacy D.O. ADMISSION DIAGNOSES: 1. Myositis with concerns for necrotizing fasciitis. 2. End-stage renal disease. 3. Abnormal troponin. 4. Coronary artery disease. 5. Cardiomyopathy. 6. Chronic macrocytic anemia. 7. Diabetes mellitus type 2. DISCHARGE DIAGNOSES: 1. Influenza A. 2. Traumatic hematoma of right upper arm without evidence of necrotizing fasciitis. 3. Ischemic cardiomyopathy. 4. Systolic congestive heart failure, chronic. 5. Anemia of chronic disease. 6. Coronary artery disease. 7. Diabetes mellitus type 2. 8. End-stage renal disease on dialysis. PROCEDURES: 1. Right femoral triple lumen catheter replacement after failed right internal jugular vein catheter placement. 2. Incision and drainage of right upper arm wound and exploration revealing absence of infection, ju st old hematoma. 3. Humerus x-ray showing severe foreshortening and deformity of the comminuted proximal humeral and humeral neck fracture with worsening position and alignment compared to previous images and some soft tissue swelling and gas collections. 4. Upper extremity CT showing scattered areas of gas in the soft tissues, mostly intramuscular and p erimuscular region of right shoulder concerning for possibility of infection and necrotizing fasciiti s. 5. Cervical spine CT showing no evidence of acute fracture. CONSULTATIONS: 1. General Surgery, Dr. Batista. 2. Nephrology, Dr. Rosenberg. 3. Infectious Disease, Dr. James. PERTINENT LABORATORY: Patient's initial blood cultures from 04/14 shows presumptive Corynebacterium species in 2/2 blood cultures. Repeat blood cultures on 04/23 showed no bacterial growth. Respirato ry virus panel done on 04/25 showed influenza A and influenza AH3. SUMMARY OF HOSPITAL COURSE: This is an 81-year-old male with a history of end-stage renal d isease on hemodialysis, also with cardiomyopathy, AICD, and diabetes, and coronary artery disease who presented to the ER with worsening swallowing pain and tenderness to right upper extremity. The eric ging show was concerning for possible necrotizing fasciitis and Dr. Batista took the patient back to [facility] operating room. When he surgically investigated, he found just old hematoma likely from some prev ious IVs, but no evidence of infection deathly, no necrotizing fasciitis and the wound was reclosed. The patient was watched in the hospital. He was initially put on the antibiotics. He had an initia l increased white blood cell count that came down to normal and did not rebound during hospitalizatio n. His antibiotics were eventually discontinued. His original blood cultures did have Corynebacteri um species which Dr. James found was most likely a contaminant, but was concerning for possibility of his pacer leads being infected, so antibiotics were stopped and then repeat blood cultures were done later. These blood cultures came back negative for infection. The patient was being considered for discharge and he had a fever spike of 101, so cultures were repeated which were negative. He had so me increased congestion, cough and a little bit of shortness of breath, but with no changes to his est x-ray to indicate a pneumonia and no elevated white blood cell count. A viral panel was sent and came back positive for influenza A. He has not had any more fevers for the last 3 days and his symp toms are improving, but given his comorbidities, he was started on oseltamivir. On the day of discha rge, he was doing well, saturating well on room air with improved cough, shortness of breath, and no altered mental status. He is being discharged back to [facility]. DISCHARGE MANAGEMENT: Discharged to [facility] facility. ACTIVITY: As tolerated. DIET: Renal diet with 1 can of Nepro twice a day, speech therapy alterations, pureed texture solids and nectar thick liquids. He is also to receive occupational, physical, and speech therapy, nebulizer treatments as needed. Follow up with Dr. Batista in [address] Stacy as needed. MEDICATIONS: 1. Renvela 2 tablets 3 times a day. 2. Ativan 0.5 mg daily as needed. 3. Dulcolax 10 mg per rectum daily as needed. 4. Zofran 4 mg every 8 hours as needed. 5. Saline nasal spray every 2 hours as needed. 6. Tylenol with codeine 1-2 tablets every 6 hours as needed for pain. 7. Tums 1000 mg 4 times a day as needed. 8. Protonix 40 mg daily. 9. Tramadol as needed. 10. MiraLax 17 grams daily as needed. 11. Milk of Magnesia 30 mL p.o. daily as needed. 12. Megace 5 mL p.o. twice a day. 13. Lidoderm patch 1 patch transdermal daily as needed for pain. 14. Fleet enema as needed. 15. Guaifenesin 10 mL every 4 hours as needed. 16. Colace 2 caps twice a day. 17. Lipitor 20 mg at night. 18. Aspirin 81 mg daily. 19. Amiodarone 400 mg daily. 20. Acetaminophen as needed. 21. Tamiflu 75 mg twice a day for a total of 5 days of treatment. 22. DuoNeb as needed q.6 hours. 23. Procrit 7500 units subcu once a week. 24. Maalox as needed.
== END 2017-04-26 15:01 | DRG 919 ==
LOC: ERS 16:20 → T4-A 23:22 → 2NO 04-15 02:13 → OBSVTOIN 04-15 13:00 → ONC 04-21 14:41
PROVIDERS: ADMIT Internal Medicine; ATTEND Internal Medicine
PROC: 5A1D70Z Performance of Urinary Filtration, Intermittent, Less than 6 Hours Per Day (ICD-10-PCS; 2017-04-16)
PROC: 06HM33Z Insertion of Infusion Device into Right Femoral Vein, Percutaneous Approach (ICD-10-PCS; principal; 2017-04-18)
PROC: 0H9BXZZ Drainage of Right Upper Arm Skin, External Approach (ICD-10-PCS; 2017-04-18)
PROC: 30233N1 Transfusion of Nonautologous Red Blood Cells into Peripheral Vein, Percutaneous Approach (ICD-10-PCS; 2017-04-19)
DX: L76.32 Postprocedural hematoma of skin and subcutaneous tissue following other procedure (principal); N18.6 End stage renal disease; I13.2 Hypertensive heart and chronic kidney disease with heart failure and with stage 5 chronic kidney disease, or end stage renal disease; G62.9 Polyneuropathy, unspecified; N25.81 Secondary hyperparathyroidism of renal origin; E16.0 Drug-induced hypoglycemia without coma; D63.1 Anemia in chronic kidney disease; E11.9 Type 2 diabetes mellitus without complications; S42.91XK Fracture of right shoulder girdle, part unspecified, subsequent encounter for fracture with nonunion; I50.22 Chronic systolic (congestive) heart failure; E03.9 Hypothyroidism, unspecified; E78.5 Hyperlipidemia, unspecified; I25.5 Ischemic cardiomyopathy; I25.10 Atherosclerotic heart disease of native coronary artery without angina pectoris; M79.1 Myalgia; G89.29 Other chronic pain; R74.8 Abnormal levels of other serum enzymes; R50.9 Fever, unspecified; R62.7 Adult failure to thrive; J10.1 Influenza due to other identified influenza virus with other respiratory manifestations; R41.0 Disorientation, unspecified; Z95.810 Presence of automatic (implantable) cardiac defibrillator; Z95.1 Presence of aortocoronary bypass graft; Z99.2 Dependence on renal dialysis; Z91.81 History of falling; Y84.8 Other medical procedures as the cause of abnormal reaction of the patient, or of later complication, without mention of misadventure at the time of the procedure; T50.905A Adverse effect of unspecified drugs, medicaments and biological substances, initial encounter; W19.XXXD Unspecified fall, subsequent encounter; Y92.239 Unspecified place in hospital as the place of occurrence of the external cause
CPT/HCPCS: 11042; 36415; 36416; 36430; 70450; 71010; 71045; 72125; 72126; 72170; 80048; 80053; 82550; 82553; 83605; 83735; 84484; 85014; 85018; 85025; 86850; 86900; 86901; 87040; 87340; 87633; 90935; 93005; 94640; 96361; 96365; 96367; 96375; A4216; A4218; G0257; G8978-GP-CM; G8979-GP-CK; G8987-GO-CL; G8988-GO-CJ; G8996-GN-CK; G8997-GN-CJ; J0360; J0690; J0696; J1650; J1940; J2001; J2405; J2543; J2704; J3010; J3370; J3490; J7042; J7050; J7070; J7620; P9016; Q4081

== ENCOUNTER 2017-05-21 16:28 | Inpatient (IN) | payer MEDICARE, OTHER ==
[2017-05-21] MEDS ORDERED: Albuterol Sulfate 2.5 mg/0.5 ml Neb ONE (16:46)
[2017-05-21] MEDS ORDERED: Albuterol Sulfate 2.5 mg/3 ml Neb ONE (16:47)
[2017-05-21 17:34] LABS: #Eosinphils 0.1 thou/uL (0.0-0.7); #Lymphocytes 1.8 thou/uL (1.20-3.40); %Basophils 0.5 % (0.0-1.0); %Eosinophils 1.8 % (0.0-10.0); %Lymphocytes 25.7 % (21.0-51.0); %Monocytes 14.6 % (0.0-10.0); %Neutrophils 57.4 % (42.0-75.0); Mean Corpuscular HGB CONC 30.9 g/dL (32.0-36.0); Mean Corpuscular Hemoglobin 33.1 pg (27.0-31.0); Mean Platelet Volume 7.8 fL (7.4-10.4); Platelet Count 194 thou/uL (130-400); Red Blood Cell (RBC) Count 3.33 mill/uL (4.70-6.10); White Blood Cell (WBC) Count 6.9 thou/uL (4.8-10.8)
[2017-05-21 17:49] LABS: Anisocytosis MODERATE=16-30 cells (100X) (0-5/hpf); MDiff Complete? YES; Macrocytosis SLIGHT = 6-15 cells (100X) (0-5/hpf); Ovalocytes SLIGHT = 2-5 cells (100X) (0-1/hpf); PLT Morphology Comment Appears Adequate; Polychromasia SLIGHT = 2-3 cells (100X) (0-2/hpf); Schistocytes SLIGHT = 2-5 cells (100X) (0-1/hpf); Target Cells SLIGHT = 2-5 cells (100X) (0-1/hpf); Tear Drops SLIGHT = 2-5 cells (100X) (0-1/hpf)
--- NOTE | 2017-05-21 17:49 | RAD ---
1 VIEW CHEST: Date: 05/21/17 COMPARISON: 04/25/17. HISTORY: Cough. FINDINGS: Portable upright chest demonstrates sternotomy wires. Single lead left-sided defibrillator. Heart is enlarged. There is pulmonary vascular prominence, unchanged. There appears to be increased interstiti al opacification upon a more chronic process. No pneumothorax. IMPRESSION: Worsening congestive heart failure. POS: [facility]
[2017-05-21 17:50] LABS: ALT (SGPT) 7 U/L (8-55); AST (SGOT) 21 U/L (5-34); Albumin 2.5 g/dL (3.4-4.8); Alkaline Phosphatase 181 U/L (40-150); Anion Gap 16 mmol/L (10-20); BUN (Urea Nitrogen) 37 mg/dL (8.4-25.7); Bilirubin, Total 0.5 mg/dL (0.2-1.2); CK (CPK) 50 U/L (30-200); Calc. Creatinine Clearance 0 mL/min (70-130); Calcium 8.6 mg/dL (7.8-10.44); Carbon Dioxide 24 mmol/L (23-31); Chloride 98 mmol/L (98-107); Estimated GFR-MDRD 13; Globulin 3.4 g/dL (2.4-3.5); Glucose 127 mg/dL (83-110); Lipase 12 U/L (8-78); Potassium 4.5 mmol/L (3.5-5.1); Protein, Total 5.9 g/dL (5.8-8.1); Sodium 133 mmol/L (136-145)
[2017-05-21 17:58] LABS: CKMB 4.4 ng/mL (0-6.6); Troponin I 0.135 ng/mL (< 0.028)
[2017-05-21] MEDS ORDERED: Clindamycin/D5W 600 mg/50 ml Premix Bag ONE (19:03)
[2017-05-21] MEDS ORDERED: Clindamycin 150 MG CAP ONE (19:04)
[2017-05-21] MEDS ORDERED: Chloraseptic Spray 180 ml Bottle PO PRN (21:21)
[2017-05-21] MEDS ORDERED: Acetaminophen 325 MG TAB PO PRN (21:21)
[2017-05-21] MEDS ORDERED: Senokot 8.6 MG TAB PO PRN (21:21)
[2017-05-21] MEDS ORDERED: Artificial Tears 18 DROP/0.9 ML EA EYE PRN (21:21)
[2017-05-21] MEDS ORDERED: Loperamide HCl 2 MG CAP PO PRN (21:21)
[2017-05-21] MEDS ORDERED: Dextrose 5% in Water 1,000 ML IV PRN (21:21)
[2017-05-21] MEDS ORDERED: Eucerin (Mineral Oil/Petrolatum,White) 30 gm Jar TOP PRN (21:21)
[2017-05-21] MEDS ORDERED: Nitroglycerin 0.4 MG TAB (25 Tab Bottle) SL PRN (21:21)
[2017-05-21] MEDS ORDERED: Milk Of Magnesia 30 ML UDCUP PO PRN (21:21)
[2017-05-21] MEDS ORDERED: Loratadine 10 MG TAB PO PRN (21:21)
[2017-05-21] MEDS ORDERED: Sodium Chloride 0.65% Nasal 44 ML BOT EA NARE PRN (21:21)
[2017-05-21] MEDS ORDERED: hydrALAZINE 20 MG/ML VIAL SLOW IVP PRN (21:21)
[2017-05-21] MEDS ORDERED: Ondansetron ODT 4 MG TAB PO PRN (21:21)
[2017-05-21] MEDS ORDERED: Mag-Al 1200 mg/1200 mg/30 ML UDCUP PO PRN (21:21)
[2017-05-21] MEDS ORDERED: Ondansetron HCl/PF 4 MG/2 ML Vial IVP PRN (21:21)
[2017-05-21] MEDS ORDERED: Zolpidem Tartrate 5 MG TAB PO PRN (21:21)
[2017-05-21] MEDS ORDERED: Dextrose 50% Abboject 50 ML SYRINGE SLOW IVP PRN (21:21)
[2017-05-21] MEDS ORDERED: Diabetic Tussin 200 MG/10 ML UDCUP PO PRN (21:21)
[2017-05-21] MEDS ORDERED: HumaLOG 300 UNITS/3 ML VIAL SC PRN (21:21)
[2017-05-21 22:34] LABS: HBSAg Index 0.16 S/CO (0-0.99); Hep B Surf Ag Non-Reactive S/CO (NonReactive)
[2017-05-21] MEDS ORDERED: Lorazepam 0.5 MG TAB PO PRN (23:39)
--- NOTE | 2017-05-22 00:32 | HP ---
PRIMARY CARE PHYSICIAN: Dr. Tank Stacy. DATE OF SERVICE: 05/21/2017 REASON FOR ADMISSION: Volume overload. HISTORY OF PRESENT ILLNESS: An 81-year-old male who has end-stage renal disease, on Monday, Monday, Monday hemodialysis as well as chronic systolic congestive heart failure, who came to emergency room for evaluation of increasing shortness of breath and cough. The patient was not able to sleep because of shortness of breath for the last 3 days. He was having increasing chest congestion. He was feeling orthopnea and during nighttime he was experiencing PND. The patient is getting his regular dialysis. The patient denies any excess salt or liquid intake. He denies any fever or chills. He denies any flu-like illness. He denies any runny nose, sore throat. He denies any constipation, diarrhea, melena or hematochezia. He denies any UTI symptoms. With these symptoms, he presented to emergency room. His chest x-ray showed worsening of congestive heart failure. This patient was hemodynamically stable and he was saturating normal on room air, but he was having congestion. Dr. Rosenberg was notified and the patient was taken for hemodialysis today. REVIEW OF SYSTEMS: Please see my HPI for pertinent positives and negatives. All other review of systems reviewed and negative except as mentioned in the HPI. Constitutional: Weight loss or gain, ability to conduct usual activities. Skin: Rash, itching. Eyes: Double vision, pain. ENT/Mouth: Nose bleeding, neck stiffness, pain, tenderness. Cardiovascular: Palpitations, dyspnea on exertion, orthopnea. Respiratory: Shortness of breath, wheezing, cough, hemoptysis, fever or night sweats. Gastrointestinal: Poor appetite, abdominal pain, heartburn, nausea, vomiting, constipation, or diarrhea. Genitourinary: Urgency, frequency, dysuria, nocturia. Musculoskeletal: Pain, swelling. Neurologic/Psychiatric: Anxiety, depression. Allergy/Immunologic: Skin rash, bleeding tendency. PAST MEDICAL HISTORY: End-stage renal disease, on hemodialysis Monday, Monday, Monday; diabetes type 2, hypertension. The patient is legally blind , sensorineural deafness, chronic systolic heart failure with EF 25-30%, history of pacemaker placement, hypothyroidism, macrocytic anemia, dyslipidemia , secondary hyperparathyroidism of renal origin. PAST SURGICAL HISTORY: CABG, AV fistula in left arm. AICD/pacemaker placement , back surgery, knee surgery. PAST PSYCHIATRIC HISTORY: Anxiety and depression. SOCIAL HISTORY: The patient lives in long-term care facility. He is former smoker, but he quit smoking more than 10 years ago. He denies any alcohol or other illicit drug abuse. FAMILY HISTORY: Patient's brother from unknown type of cancer, but no strong family history of premature coronary artery disease, stroke or cancer. ALLERGIES: No known drug allergies. CURRENT HOME MEDICATIONS: Based on our discharge summary from previous hospitalization, the patient is on following medications: Amiodarone 200 mg p.o. daily, aspirin 81 mg p.o. daily, Lipitor 20 mg p.o. at bedtime, Colace 100 mg p.o. b.i.d., Procrit with dialysis, Humalog insulin as per sliding scale, DuoNeb q.6 hourly p.r.n., Ativan 0.5 mg p.o. daily p.r.n., Protonix 40 mg p.o. daily, Renvela 800 mg 2 tablet t.i.d. EMERGENCY ROOM COURSE: The patient has received clindamycin 600 mg orally. ADDITIONAL INFORMATION: The patient was found with right arm erythema in the emergency room and that is why he was given clindamycin. The patient did not have any fever or chills. He does not have any pain. He does not have any purulent drainage. PHYSICAL EXAMINATION: VITAL SIGNS: On arrival, blood pressure 116/76, pulse 82, respiratory rate 22, temperature 98.0, saturation 100% on room air, weight 63.9 kilograms. GENERAL: The patient is currently alert, awake, in no obvious acute distress. HEAD: Normocephalic, atraumatic. Eyes: Pupils round, reactive to light. Extraocular muscle intact. ENT: Oropharynx within normal limits. Moist mucous membranes. No oral lesions. No pharyngeal erythema, no exudate. NECK: Supple, no JVD, no meningeal signs of irritation, no lymphadenopathy. LUNGS: Coarse breath sounds, but no obvious rhonchi or obvious rales noted. Air entry reduced at the base. CARDIAC: S1, S2 regular without any significant murmur. ABDOMEN: Soft, bowel sounds present, nontender, nondistended. No organomegaly , no mass, no suprapubic tenderness. BACK: Unremarkable, no CVA tenderness. EXTREMITIES: Upper extremity, passive movement of all joints are normal. Lower extremity, passive movement of all joints are normal. No edema. Good distal pulsation. SKIN: No skin rash other than the patient does have wound over right upper extremity with granulation tissue. HEMATOLOGICAL: No lymphadenopathy. PSYCHIATRIC: Normal affect. SIGNIFICANT LABORATORY: EKG showing normal sinus rhythm, nonspecific ST-T changes. Chest x-ray showing worsening congestive heart failure. CBC: WBC 6.9, hemoglobin 11.0, platelets 194, MCV 107. BMP: Sodium 133, potassium 4.5, chloride 98, carbon dioxide 24, anion gap 16, BUN 37, creatinine 4.40, glucose 127, calcium 8.6. LFT: AST 21, ALT 7, alkaline phosphatase 181, albumin 2.5. Lipase 12. CK 50, CK-MB 4.4, troponin I 0.135. BNP 13,020. Lactic acid 1.3. Hepatitis B surface antigen negative. Influenzae A and B negative. ASSESSMENT AND PLAN: 1. Volume overload. This patient has underlying chronic systolic heart failure and he has worsening congestive heart failure based on x-ray and he also has symptoms associated with increasing shortness of breath, cough, orthopnea, PND, and that is why the patient will need dialysis. Dr. Rosenberg is consulted and the patient is getting hemodialysis tonight. He will need another dialysis tomorrow and during dialysis session will try to remove as much as fluid possible. 2. Suspected right arm mild cellulitis. We will continue Keflex 250 mg p.o. t.i.d. for 7 days upon discharge. 3. End-stage renal disease on Monday, Monday, Monday hemodialysis. The patient will resume his regular dialysis tomorrow, Monday and then Monday and Monday. Dr. Rosenberg is already consulted. 4. Macrocytic anemia. We will continue Nephro-Brian one tablet p.o. daily. This patient also has anemia of renal disease and he will get Procrit with dialysis. 5. Secondary hyperparathyroidism of renal origin. We will continue Renvela 1600 mg t.i.d. 6. Gastroesophageal reflux disease. We will continue Protonix 40 mg p.o. daily. 7. Chronic constipation. We will continue MiraLax 17 grams p.o. daily. 8. Anxiety and depression. We will continue lorazepam 0.5 mg p.o. daily. 9. Dyslipidemia. We will continue Lipitor 20 mg p.o. at bedtime. 10. Elevated troponin, which is chronic due to demand ischemia and renal disease. We will continue aspirin 81 mg p.o. daily. 11. Diabetes type 2. We will continue insulin as per sliding scale per protocol. 12. Chronic systolic heart failure. The patient is not on RADHA inhibitor because of renal failure. We will consider adding Coreg 3.125 mg p.o. b.i.d. 13. Hypertension. We will continue Coreg 3.125 mg p.o. b.i.d. 14. Coronary artery disease. We will continue aspirin 81 mg p.o. daily and Lipitor 20 mg p.o. at bedtime. 15. Deep venous thrombosis prophylaxis not needed because we are expecting discharge in 24 hours. 16. Gastrointestinal prophylaxis. The patient is already on Protonix therapy. 17. Code status: The patient is FULL CODE. Patient's daughter is surrogate decision maker. Disposition plan based on clinical course, likely within 24-48 hours. MTDD
[2017-05-22 03:52] LABS: #Lymphocytes 0.7 thou/uL (1.20-3.40); #Monocytes 0.9 thou/uL (0.11-0.59); #Neutrophils 4.7 thou/uL (1.40-6.50); %Basophils 0.1 % (0.0-1.0); %Eosinophils 0.3 % (0.0-10.0); %Lymphocytes 10.8 % (21.0-51.0); %Monocytes 14.6 % (0.0-10.0); %Neutrophils 74.2 % (42.0-75.0); Hemoglobin 10.5 g/dL (14.0-18.0); Mean Corpuscular HGB CONC 31.5 g/dL (32.0-36.0); Mean Corpuscular Hemoglobin 33.3 pg (27.0-31.0); Mean Platelet Volume 7.9 fL (7.4-10.4); Platelet Count 186 thou/uL (130-400); RBC Distribution Width 19.1 % (11.5-14.5); Red Blood Cell (RBC) Count 3.14 mill/uL (4.70-6.10); White Blood Cell (WBC) Count 6.3 thou/uL (4.8-10.8)
[2017-05-22 04:16] LABS: ALT (SGPT) Less than 7 U/L (8-55); AST (SGOT) 19 U/L (5-34); Albumin 2.3 g/dL (3.4-4.8); Alkaline Phosphatase 145 U/L (40-150); Anion Gap 15 mmol/L (10-20); BUN (Urea Nitrogen) 24 mg/dL (8.4-25.7); Bilirubin, Total 0.5 mg/dL (0.2-1.2); Calc. Creatinine Clearance 0 mL/min (70-130); Calcium 8.4 mg/dL (7.8-10.44); Carbon Dioxide 29 mmol/L (23-31); Chloride 96 mmol/L (98-107); Estimated GFR-MDRD 17; Globulin 3.2 g/dL (2.4-3.5); Glucose 95 mg/dL (83-110); Protein, Total 5.5 g/dL (5.8-8.1); Sodium 136 mmol/L (136-145)
[2017-05-22] MEDS ORDERED: Cephalexin 250 MG CAP ONE (08:17)
--- NOTE | 2017-05-22 09:32 | PRG ---
DATE OF SERVICE: 05/22/2017 SUBJECTIVE: Mr. Vaz is an 81-year-old white male with ESRD and admitted for congestive heart failure. He underwent emergent hemodialysis yesterday for 2 hours with at least 2 liter fluid remova l. This morning he is better, but still mildly short of breath. I am currently dialyzing him again for a second treatment. Please note I am at the bedside supervising his dialysis. I am attempting a nother 2 liter fluid removal. PHYSICAL EXAMINATION: VITAL SIGNS: Blood pressure is 108/61 with a heart rate of 100, respiratory rate 17, temperature 97. 4, pulse ox 98%. GENERAL: Noted to be awake, alert, comfortable, not in distress. SKIN: Adequate turgor. HEENT: He has pinkish conjunctivae, anicteric sclerae. NECK: No neck mass, no carotid bruits, no JVD. CHEST: No deformities. LUNGS: Decreased breath sounds. No wheezing, no crackles. HEART: Normal sinus rhythm. No murmur, no gallops or rubs. ABDOMEN: Globular, soft, nontender, no masses. EXTREMITIES: No edema or deformities. MEDICATIONS: 05/22/2017 - Reviewed. LABORATORY: 05/22/2017 - White count 6.3, hemoglobin 10.5, sodium 136, potassium 4, chloride 96, car bon dioxide 29, BUN 34, creatinine 3.42, albumin 2.3. White count 6.3, hemoglobin 10.5. Chest x-ray of 05/21/2017 showed CHF. ASSESSMENT AND PLAN: 1. Shortness of breath - secondary to congestive heart failure, emergent hemodialysis done yesterday . We are now doing his regular dialysis regimen of Monday, Monday, Monday at 3.5 hours. Attempti ng 2 liter fluid removal again, as tolerated by the patient. 2. Anemia. Start Epogen 10,000 units subcu q. week. 3. End-stage renal disease - continue Monday, Monday, Monday dialysis. Fluid removal as tolerate d as previously mentioned. Overall, prognosis remains guarded.
[2017-05-22] MEDS: Cephalexin 250 MG CAP PO SCH ×3 (13:55→22:35)
[2017-05-22] MEDS: Folic Acid/Vit B Comp W-C PO SCH (13:55)
[2017-05-22] MEDS: Polyethylene Glycol 3350 17 GM Packet PO SCH (13:56)
[2017-05-22] MEDS: Carvedilol 3.125 MG TAB PO SCH ×2 (13:56→22:35)
[2017-05-22] MEDS: Sevelamer Carbonate 800 MG TAB PO SCH ×3 (13:57→19:30)
[2017-05-22] MEDS ORDERED: Calcium Carbonate 500 MG ChewTAB PO PRN (14:54)
[2017-05-22] MEDS ORDERED: traMADol HCl 50 MG TAB PO PRN (14:54)
--- NOTE | 2017-05-22 15:00 | PDOC.PN ---
- Subjective Encounter Start Date: 05/22/17 Encounter Start Time: 14:58 Subjective: sob, unchanged - Objective Resuscitation Status: Resuscitation Status FULL:Full Resuscitation MAR Reviewed: Yes Vital Signs & Weight: Vital Signs (12 hours) Temp Pulse Resp BP Pulse Ox 05/22/17 14:33 98.0 F 97 23 H 95 05/22/17 14:14 98.0 F 97 23 H 115/81 93 L Result Diagrams: 05/22/17 03:22 05/22/17 03:22 Radiology Reviewed by me: Yes (cxr- adverse chf) Phys Exam - Physical Examination Constitutional: NAD Neck: no JVD rales ant/post, using accessory muscles Cardiovascular: RRR, no significant murmur heart sounds obscured by resp noise Gastrointestinal: soft Musculoskeletal: edema present Dx/Plan (1) Acute on chronic systolic (congestive) heart failure Code(s): I50.23 - ACUTE ON CHRONIC SYSTOLIC (CONGESTIVE) HEART FAILURE Status : Acute (2) AICD (automatic cardioverter/defibrillator) present Code(s): Z95.810 - PRESENCE OF AUTOMATIC (IMPLANTABLE) CARDIAC DEFIBRILLATOR Status: Chronic (3) Anemia in chronic kidney disease (CKD) Code(s): N18.9 - CHRONIC KIDNEY DISEASE, UNSPECIFIED; D63.1 - ANEMIA IN CHRONIC KIDNEY DISEASE Status: Chronic Qualifiers: Chronic kidney disease stage: on chronic dialysis Qualified Code(s): N18.6 - End stage renal disease; D63.1 - Anemia in chronic kidney disease; D63.1 - Anemia in chronic kidney disease; Z99.2 - Dependence on renal dialysis; Z99.2 - Dependence on renal dialysis; Z99.2 - Dependence on renal dialysis; Z99.2 - Dependence on renal dialysis (4) CAD (coronary artery disease) Code(s): I25.10 - ATHSCL HEART DISEASE OF [place] CORONARY ARTERY W/O ANG PCTRS Status: Chronic Qualifiers: Coronary Disease-Associated Artery/Lesion type: [place] artery [place] vs. transplanted heart: [place] heart Associated angina: without angina Qualified Code(s): I25.10 - Atherosclerotic heart disease of [place] coronary artery without angina pectoris (5) Diabetes type 2, controlled Code(s): E11.9 - TYPE 2 DIABETES MELLITUS WITHOUT COMPLICATIONS Status: Chronic Qualifiers: Diabetes mellitus complication status: with kidney complications Diabetes mellitus complication detail: with chronic kidney disease Diabetes mellitus electric stove mechanic insulin use: with [facility] use Chronic kidney disease stage: on chronic dialysis Qualified Code(s): E11.22 - Type 2 diabetes mellitus with diabetic chronic kidney disease; N18.6 - End stage renal disease; Z99.2 - Dependence on renal dialysis; Z99.2 - Dependence on renal dialysis; Z99.2 - Dependence on renal dialysis; N18.6 - End stage renal disease; N18.6 - End stage renal disease; N18.6 - End stage renal disease; Z79.4 - detention (current ) use of insulin; Z79.4 - teletypesetter (current) use of insulin; Z79.4 - teletypesetter (current) use of insulin; Z79.4 - teletypesetter (current) use of insulin; Z99.2 - Dependence on renal dialysis (6) ESRD (end stage renal disease) on dialysis Code(s): N18.6 - END STAGE RENAL DISEASE; Z99.2 - DEPENDENCE ON RENAL DIALYSIS Status: Chronic (7) Ischemic cardiomyopathy Code(s): I25.5 - ISCHEMIC CARDIOMYOPATHY Status: Chronic (8) Secondary hyperparathyroidism of renal origin Code(s): N25.81 - SECONDARY HYPERPARATHYROIDISM OF RENAL ORIGIN Status: Chronic - Plan still in active heart failure after HD x 2, will admit, monitor accu/ ss -: daily HD, rpt ECHO cardiagram, CXR -: prognosis for this pt is poor -: he will require 4-5 days of frequent evaluatio and tx as inpt * .
--- NOTE | 2017-05-22 15:26 | RAD ---
SINGLE VIEW OF THE CHEST: Comparison: 05-21-17 History: Congestive heart failure. FINDINGS: Single view of the chest shows an enlarged but stable cardiomediastinal silhouette. The patient is st atus post sternotomy. A pacemaker is seen with its tip in the right ventricle. Increased interstitial markings are present. There is no evidence of consolidation, mass, or pleural effusion. IMPRESSION: Cardiomegaly without evidence of acute cardiopulmonary disease. POS: LÁZAROH
[2017-05-22] MEDS ORDERED: FLU VACC TS2017-18 (>65YR) 0.5 ML SYRINGE IM ONE (16:15)
--- NOTE | 2017-05-22 20:31 | PDOC.EVN ---
Event Note - Event Note Event Note: Code Green for resp distress in ESRD with volume overload and know EF 30%. Pt states this is the "worst I've ever felt." Vitals: 165/78, 100% on 3.5L NC, HR 100 Gen: anxious, alert, responds to questions, mod resp distress HEENT: mouth breathing, PERRLA Chest: coarse sounds bilat, diminished in bases, accessory muscle use CV: S1, S2, tachycardia ABD: rounded, soft EXT: atrophy, no edema NEURO: Awake, responds to questions PCXR - bilat pulm edema, increased markings R>L, cardiomegaly, pacer device in L chest Tele - sinus tach in 100's Laboratory Tests 05/21/17 05/21/17 05/22/17 17:22 17:22 03:22 Hgb 11.0 L 10.5 L B-Natriuretic Peptide 96377.5 H A/P: 1. Acute hypoxic resp failure/volume overload/ESRD with HD - plan for urgent HD tonight, notified Dr. Rosenberg who will dialyze, Duonebs q4h, O2 titrated consider BiPAP if worsening resp status overnight, ABG pending 2. Acute/Chronic Systol CHF - component due to low EF 30%, 2D echo pending, no Lasix secondary to ESRD, poor prognosis Total Critical care time 30min
[2017-05-22 20:40] LABS: O2 Tension (PaO2) 77.1 mmHg (80.0-100.0); pH, Arterial 7.43 (7.35-7.45)
[2017-05-22 20:41] LABS: Actual Bicarbonate (HCO3a) 27.7 mEq/L (22-26); Hematocrit-ABG 41.2 % (42.0-52.0)
[2017-05-22 20:42] LABS: Hemoglobin (Hb) 11.2 g/dL (14.0-18.0)
[2017-05-22 20:43] LABS: Calcium, Ionized 1.2 mmol/L (1.12-1.30); Puncture Site RB
--- NOTE | 2017-05-22 21:01 | RAD ---
CHEST ONE VIEW: History: Shortness of breath. Comparison: Earlier examination, same day. FINDINGS: Heart size is enlarged. There are post op sternotomy changes. Perihilar lung markings are slightly le ss prominent than on the prior exam suggesting some resolution of some pulmonary edema change, slight ly more prominent markings in the right upper lobe are seen. I would still favor that this is related to resolving edema, but associated pneumonia is not excluded. IMPRESSION: Cardiomegaly with decrease in the pulmonary vascular engorgement and perihilar lung markings, still w ith some persistent bibasilar lung changes and right upper lobe parenchymal change. Continued follow up is suggested to exclude associated pneumonic process. POS: MEÑO
[2017-05-22] MEDS: Atorvastatin Calcium 20 MG TAB PO SCH (22:45)
[2017-05-22] MEDS: Megestrol Acetate 800 MG/20 ML UDCUP PO SCH (22:46)
[2017-05-23] MEDS ORDERED: cefTRIAXone\\ROCEPHIN 1 GM in Sodium Chloride 0.9% 100 ML IVPB SCH (08:15)
--- NOTE | 2017-05-23 08:17 | PRG ---
DATE OF SERVICE: 05/23/2017 RENAL MEDICINE SUBJECTIVE: Mr. Vaz is an 81-year-old white male who was admitted for CHF. Please note he und erwent emergent ultrafiltration last night due to persistent shortness of breath. The chest x-ray sh ows some degree of radiographic improvement with CHF. This morning, patient still complains of some shortness of breath. Physical exam suggests he has bibasilar crackles. For this reason, I have sche duled him for another dialysis treatment for 3 hours. PHYSICAL EXAMINATION: VITAL SIGNS: Blood pressure is 100/48, heart rate 86, respiratory rate 21, temperature 97.9, pulse o ximetry 100% - on 4 liters. GENERAL: He is noted to be awake, alert, in mild respiratory distress. SKIN: Adequate turgor. HEENT: He has pinkish conjunctivae, anicteric sclerae. NECK: No neck mass, no carotid bruits. No JVD. CHEST: No deformities. LUNGS: Bibasilar crackles. HEART: Normal sinus rhythm. No murmurs, no gallops, no rubs. ABDOMEN: Globular, soft, nontender. EXTREMITIES: No edema. MEDICATIONS: Medications of 05/23/2017 was reviewed. LABORATORY DATA: Laboratories of 05/22/2017, hemoglobin 10.5. On 05/23/2017, glucose 86. On 2017, BUN 24, creatinine 3.42, and potassium 4. ASSESSMENT AND PLAN: Shortness of breath/congestive heart failure - patient is still clinically asym ptomatic. My plan is to do another dialytic intervention with this patient. We will do 3-hour hemod ialysis. My plan is to do daily dialysis until I can improve the patient's pulmonary status. We jg l max out fluid removal with this patient only as tolerated. Overall, prognosis remains poor with th is patient. If no improvement with daily dialysis, this patient may just have significant cardiac pr oblem. Please note, his last EF was noted at 30%. A repeat cardiac echo has been ordered.
--- NOTE | 2017-05-23 08:17 | PDOC.PN ---
- Subjective Encounter Start Date: 05/23/17 Encounter Start Time: 08:15 Subjective: cont to be sob - Objective Resuscitation Status: Resuscitation Status FULL:Full Resuscitation MAR Reviewed: Yes Vital Signs & Weight: Vital Signs (12 hours) Temp Pulse Resp BP Pulse Ox 05/23/17 04:00 97.9 F 86 21 H 100/48 L 100 05/22/17 20:46 95 24 H 100 05/22/17 20:25 98.5 F 100 24 H 165/78 H 100 Weight Weight 124 lb 12.8 oz I&O: 05/22/17 05/23/17 05/24/17 06:59 06:59 06:59 Intake Total 360 Balance 360 Result Diagrams: 05/22/17 03:22 05/22/17 03:22 Additional Labs: Accuchecks 05/23/17 05/22/17 06:52 20:46 POC Glucose 86 102 Radiology Reviewed by me: Yes (cxr- PVC vs infectios process) Phys Exam - Physical Examination Constitutional: NAD Neck: no JVD diffuse raled Cardiovascular: RRR, no significant murmur Gastrointestinal: soft, positive bowel sounds Musculoskeletal: edema present Dx/Plan (1) Acute on chronic systolic (congestive) heart failure Code(s): I50.23 - ACUTE ON CHRONIC SYSTOLIC (CONGESTIVE) HEART FAILURE Status : Acute (2) AICD (automatic cardioverter/defibrillator) present Code(s): Z95.810 - PRESENCE OF AUTOMATIC (IMPLANTABLE) CARDIAC DEFIBRILLATOR Status: Chronic (3) Anemia in chronic kidney disease (CKD) Code(s): N18.9 - CHRONIC KIDNEY DISEASE, UNSPECIFIED; D63.1 - ANEMIA IN CHRONIC KIDNEY DISEASE Status: Chronic Qualifiers: Chronic kidney disease stage: on chronic dialysis Qualified Code(s): N18.6 - End stage renal disease; D63.1 - Anemia in chronic kidney disease; D63.1 - Anemia in chronic kidney disease; Z99.2 - Dependence on renal dialysis; Z99.2 - Dependence on renal dialysis; Z99.2 - Dependence on renal dialysis; Z99.2 - Dependence on renal dialysis (4) CAD (coronary artery disease) Code(s): I25.10 - ATHSCL HEART DISEASE OF [place] CORONARY ARTERY W/O ANG PCTRS Status: Chronic Qualifiers: Coronary Disease-Associated Artery/Lesion type: [place] artery [place] vs. transplanted heart: [place] heart Associated angina: without angina Qualified Code(s): I25.10 - Atherosclerotic heart disease of [place] coronary artery without angina pectoris (5) Diabetes type 2, controlled Code(s): E11.9 - TYPE 2 DIABETES MELLITUS WITHOUT COMPLICATIONS Status: Chronic Qualifiers: Diabetes mellitus complication status: with kidney complications Diabetes mellitus complication detail: with chronic kidney disease Diabetes mellitus terminal makeup operator insulin use: with group home use Chronic kidney disease stage: on chronic dialysis Qualified Code(s): E11.22 - Type 2 diabetes mellitus with diabetic chronic kidney disease; N18.6 - End stage renal disease; Z99.2 - Dependence on renal dialysis; Z99.2 - Dependence on renal dialysis; Z99.2 - Dependence on renal dialysis; N18.6 - End stage renal disease; N18.6 - End stage renal disease; N18.6 - End stage renal disease; Z79.4 - terminal makeup operator (current ) use of insulin; Z79.4 - terminal makeup operator (current) use of insulin; Z79.4 - care home (current) use of insulin; Z79.4 - care home (current) use of insulin; Z99.2 - Dependence on renal dialysis (6) ESRD (end stage renal disease) on dialysis Code(s): N18.6 - END STAGE RENAL DISEASE; Z99.2 - DEPENDENCE ON RENAL DIALYSIS Status: Chronic (7) Ischemic cardiomyopathy Code(s): I25.5 - ISCHEMIC CARDIOMYOPATHY Status: Chronic (8) Secondary hyperparathyroidism of renal origin Code(s): N25.81 - SECONDARY HYPERPARATHYROIDISM OF RENAL ORIGIN Status: Chronic (9) Acute respiratory failure with hypoxia Code(s): J96.01 - ACUTE RESPIRATORY FAILURE WITH HYPOXIA Status: Acute (10) PNA (pneumonia) Code(s): J18.9 - PNEUMONIA, UNSPECIFIED ORGANISM Status: Acute Qualifiers: Pneumonia type: due to unspecified organism Laterality: bilateral Lung location: unspecified part of lung Qualified Code(s): J18.9 - Pneumonia, unspecified organism - Plan cont O2. blood C&S, start antibx -: cont HD, ABG -: pulmonology consult * .
[2017-05-23 08:20] VITALS: BMI 22.1
[2017-05-23] MEDS: Sevelamer Carbonate 800 MG TAB PO SCH ×4 (08:50→16:32)
[2017-05-23] MEDS: HYDROcodone/Acetaminophen 5/325 mg Tablet PO PRN (10:25)
--- NOTE | 2017-05-23 12:13 | CON ---
DATE OF CONSULTATION: 05/23/2017 REFERRING PHYSICIAN: Dr. Sofia Centeno REASON FOR CONSULTATION: Shortness of breath, hypoxemia. HISTORY OF PRESENT ILLNESS: Mr. Vaz is an 81-year-old gentleman who has been in the [facility] since the . He presented with weakness, shortness of breath and pain. Apparently he had fallen earlier and sustained multiple fractures. He is fluid overloaded. He was d ialyzed on an emergency basis. This morning he is in dialysis center, he is having ongoing chest pain and back pain. He is denying any fever or chills. Over the last several weeks, he has been essentially bed and wheelchair ridden. Prior to that, he wa s able to walk maybe half a block without getting markedly short of breath. Remote history of tobacc o abuse. He quit smoking in 1996. PAST MEDICAL HISTORY: Pertinent for cardiomyopathy, COPD, congestive heart failure, end-stage renal disease. Otherwise past medical history is pertinent for hypertension, renal failure, neuropathy, le gally blind, fracture of right shoulder. PAST SURGICAL HISTORY: Bypass, pacemaker, access, back surgery, knee surgery. SOCIAL HISTORY: As noted, a former smoker. Alcohol none. Please note I reviewed this patient's extensive past medical records. REVIEW OF SYSTEMS: Otherwise, 10-point negative. PHYSICAL EXAMINATION: (In dialysis). GENERAL: Appears to be in mild distress. VITAL SIGNS: Saturations 100% on 4 liters, respirations 21, temperature 97, blood pressure 120/80. CHEST: Extensive rhonchi and crackles. CARDIAC: Normal S1-S2. No gallops. ABDOMEN: Soft. No masses. LABORATORY: PO2 77, PCO2 43, pH 7.43 on 4 liters. X-ray shows cardiomegaly with cephalization. Additional lab white count 6000, H&H 10 and 33, platelet count 186. Chemistry profile shows creatini ne 3.42. Thyroid function was normal. Please note I reviewed his extensive past medical history and additionally all lab report and x-ray r eport any images were reviewed. IMPRESSION: 1. Respiratory failure secondary to combination of congestive heart failure, fluid overload. 2. Bronchitis. 3. Former smoker. 4. Renal failure. 5. Severe deconditioning. 6. Cardiac arrhythmias. PLAN: I have added steroids to his aggressive medical treatment. We will follow. This is a 70 minute on my consultation note in which 50% spent at the bedside with d irect patient care. Additionally, all medical records reviewed. There are no family members to ask any additional histor y at this time.
[2017-05-23] MEDS: cefTRIAXone\\ROCEPHIN 1 GM, Syringe 0.4 ML in Sterile Water 9.6 ML SLOW IVP SCH (12:22)
[2017-05-23] MEDS: Megestrol Acetate 800 MG/20 ML UDCUP PO SCH ×2 (12:23→21:40)
[2017-05-23] MEDS: Folic Acid/Vit B Comp W-C PO SCH (12:24)
[2017-05-23] MEDS: Amiodarone 200 MG TAB PO SCH (12:25)
[2017-05-23] MEDS: Cephalexin 250 MG CAP PO SCH ×3 (12:26→21:40)
[2017-05-23] MEDS: Carvedilol 3.125 MG TAB PO SCH ×2 (12:26→21:40)
[2017-05-23] MEDS: Polyethylene Glycol 3350 17 GM Packet PO SCH (12:27)
[2017-05-23] MEDS: Acetaminophen/Codeine 30-300mg Tablet PO PRN (13:42)
--- NOTE | 2017-05-23 15:49 | RAD ---
PORTABLE CHEST 1 VIEW: DATE: 05/23/17. TIME: 2:27 p.m. HISTORY: CHF. FINDINGS: Comparison is made with the exam of previous day. Changes of median sternotomy are again seen. Left -sided pacing device is redemonstrated with lead in the projection of the right ventricle. There is mild pulmonary vascular congestion. No pneumothoraces are seen. Small effusion may be present. Fra cture and heterotopic ossification in the right shoulder joint are again seen. There are changes of vertebroplasty in the upper lumbar spine. POS: LÁZARO
[2017-05-23] MEDS: Mometasone/Formoterol 120 PUFF INHALER INH SCH (18:59)
[2017-05-23] MEDS: Atorvastatin Calcium 20 MG TAB PO SCH (21:40)
[2017-05-24] MEDS: Mometasone/Formoterol 120 PUFF INHALER INH SCH ×2 (06:57→18:51)
--- NOTE | 2017-05-24 09:00 | PRG ---
DATE OF SERVICE: 05/24/2017 SERVICE: Renal Medicine. SUBJECTIVE: Mr. Vaz is an 81-year-old white male with end-stage renal disease and being follow ed up by the Renal Service for his maintenance hemodialysis. The patient was admitted for congestive heart failure. During the last several days, the patient has been in acute respiratory distress. W e have continued to do daily dialysis with this patient due to the volume overload. Please note, he received another dialysis treatment yesterday where about 2-3 liters of fluid was removed. His breat anni this morning is much improved. The only complaint he has is his rib pain. His shortness of arnol ath according to the patient is gone. I am currently at the bedside of this patient, supervising his dialysis. He is currently receiving dialysis since this is his regular Monday, Monday, Monday [facility]. OBJECTIVE: VITAL SIGNS: Blood pressure 135/62, heart rate 83, respiratory rate 18, temperature 97.6, pulse oxim etry 100%. GENERAL: Noted to be awake, alert, supine, comfortable, not in overt distress. SKIN: Adequate turgor. HEENT: He has slightly pale conjunctivae, anicteric sclerae. NECK: No neck mass, no carotid bruits. No JVD. CHEST: No deformities. LUNGS: Decreased breath sounds. No wheezing. HEART: Normal sinus rhythm. No murmurs, gallops or rubs. ABDOMEN: Globular, soft, nontender, no masses. EXTREMITIES: No edema, no deformities. MEDICATIONS: Of 05/24/2017 was reviewed. LABORATORY DATA: Of 05/22/2017, white count 6.3, hemoglobin 10.5, sodium 136, potassium 4, chloride 96, carbon dioxide 29, BUN 24, creatinine 3.42, AST 19, ALT less than 7, albumin 2.3. On 05/24/2017, glucose 206. ASSESSMENT AND PLAN: 1. Congestive heart failure - the patient received 3 consecutive days of dialysis including today's treatment. His breathing is actually improved this morning. I will still attempt to remove fluid wi th this patient as tolerated by his blood pressure. The only rate limiting thing with fluid removal with this patient is his decreased blood pressure. His blood pressure has been fluctuating during th e last one hour with the dialysis. 2. End-stage renal disease, stable. We will resume back his Monday, Monday, Monday hemodialysis regimen. Again, fluid removal as tolerated. No changes will be made with his current hemodialysis b ath. 3. Chronic obstructive pulmonary disease - Pulmonary consult has been done. Steroids has been added . We will recheck basic metabolic panel and CBC in a.m.
[2017-05-24] MEDS: cefTRIAXone\\ROCEPHIN 1 GM, Syringe 0.4 ML in Sterile Water 9.6 ML SLOW IVP SCH (10:00)
--- NOTE | 2017-05-24 10:47 | PRG ---
DATE OF SERVICE: 05/24/2017 This morning he is awake, alert, responsive. PHYSICAL EXAMINATION: VITAL SIGNS: Sats are 100% on 1 liter, respirations 18, pulse 83, respirations 18, temperature 97. CHEST: Chest revealed no wheezing, no crackles. CARDIAC: Normal S1, S2. IMPRESSION: 1. Respiratory failure secondary to combination of congestive heart failure and fluid overload. 2. Chronic obstructive pulmonary disease, bronchitis. PLAN: He looks much improved. From a pulmonary standpoint of view he looks stable enough to be discharged home. I would deescalate his antibiotics. He is both on Keflex and ceftriaxone which I would discontinue. Also I agree to discontinue his steroids, switch over to oral medication.
[2017-05-24] MEDS: Sevelamer Carbonate 800 MG TAB PO SCH ×3 (11:44→20:56)
[2017-05-24] MEDS: Cephalexin 250 MG CAP PO SCH ×3 (11:46→20:56)
[2017-05-24] MEDS: Folic Acid/Vit B Comp W-C PO SCH (11:47)
[2017-05-24] MEDS: Megestrol Acetate 800 MG/20 ML UDCUP PO SCH ×2 (11:47→20:59)
[2017-05-24] MEDS: Acetaminophen/Codeine 30-300mg Tablet PO PRN (14:38)
[2017-05-24] MEDS: Carvedilol 3.125 MG TAB PO SCH ×2 (14:39→20:56)
[2017-05-24] MEDS: Amiodarone 200 MG TAB PO SCH (14:39)
[2017-05-24] MEDS: Polyethylene Glycol 3350 17 GM Packet PO SCH (14:39)
[2017-05-24] MEDS ORDERED: Lidocaine Patch Removal 1 EACH TOP SCH (14:45)
[2017-05-24] MEDS ORDERED: Lidocaine 5% Patch TD PRN (15:51)
--- NOTE | 2017-05-24 15:51 | PDOC.PN ---
- Subjective Encounter Start Date: 05/24/17 Encounter Start Time: 15:49 Subjective: no sob - Objective Resuscitation Status: Resuscitation Status FULL:Full Resuscitation MAR Reviewed: Yes Vital Signs & Weight: Vital Signs (12 hours) Temp Pulse Pulse Pulse Resp BP BP 05/24/17 15:36 84 85 136/63 134/63 05/24/17 14:35 84 05/24/17 14:09 83 16 05/24/17 10:33 80 16 05/24/17 04:25 97.6 F 83 18 BP Pulse Ox 05/24/17 15:36 05/24/17 14:35 138/62 05/24/17 14:09 98 05/24/17 10:33 99 05/24/17 04:25 135/62 100 Weight Admit Weight 132 lb Weight 123 lb 14.4 oz I&O: 05/23/17 05/24/17 05/25/17 06:59 06:59 06:59 Intake Total 360 2170 Output Total 2000 Balance 360 170 Result Diagrams: 05/22/17 03:22 05/22/17 03:22 Additional Labs: Accuchecks 05/24/17 05/24/17 05/23/17 10:48 05:36 21:01 POC Glucose 199 H 206 H 145 H 05/23/17 17:45 POC Glucose 125 H Phys Exam - Physical Examination Neck: supple Respiratory: clear to auscultation bilateral Cardiovascular: RRR, no significant murmur Gastrointestinal: soft, positive bowel sounds Musculoskeletal: no edema Dx/Plan (1) Acute on chronic systolic (congestive) heart failure Code(s): I50.23 - ACUTE ON CHRONIC SYSTOLIC (CONGESTIVE) HEART FAILURE Status : Acute (2) AICD (automatic cardioverter/defibrillator) present Code(s): Z95.810 - PRESENCE OF AUTOMATIC (IMPLANTABLE) CARDIAC DEFIBRILLATOR Status: Chronic (3) Anemia in chronic kidney disease (CKD) Code(s): N18.9 - CHRONIC KIDNEY DISEASE, UNSPECIFIED; D63.1 - ANEMIA IN CHRONIC KIDNEY DISEASE Status: Chronic Qualifiers: Chronic kidney disease stage: on chronic dialysis Qualified Code(s): N18.6 - End stage renal disease; D63.1 - Anemia in chronic kidney disease; D63.1 - Anemia in chronic kidney disease; Z99.2 - Dependence on renal dialysis; Z99.2 - Dependence on renal dialysis; Z99.2 - Dependence on renal dialysis; Z99.2 - Dependence on renal dialysis (4) CAD (coronary artery disease) Code(s): I25.10 - ATHSCL HEART DISEASE OF [place] CORONARY ARTERY W/O ANG PCTRS Status: Chronic Qualifiers: Coronary Disease-Associated Artery/Lesion type: [place] artery [place] vs. transplanted heart: [place] heart Associated angina: without angina Qualified Code(s): I25.10 - Atherosclerotic heart disease of [place] coronary artery without angina pectoris (5) Diabetes type 2, controlled Code(s): E11.9 - TYPE 2 DIABETES MELLITUS WITHOUT COMPLICATIONS Status: Chronic Qualifiers: Diabetes mellitus complication status: with kidney complications Diabetes mellitus complication detail: with chronic kidney disease Diabetes mellitus bed bug exterminator insulin use: with prison use Chronic kidney disease stage: on chronic dialysis Qualified Code(s): E11.22 - Type 2 diabetes mellitus with diabetic chronic kidney disease; N18.6 - End stage renal disease; Z99.2 - Dependence on renal dialysis; Z99.2 - Dependence on renal dialysis; Z99.2 - Dependence on renal dialysis; N18.6 - End stage renal disease; N18.6 - End stage renal disease; N18.6 - End stage renal disease; Z79.4 - halfway (current ) use of insulin; Z79.4 - termite renewal inspector (current) use of insulin; Z79.4 - termite renewal inspector (current) use of insulin; Z79.4 - halfway (current) use of insulin; Z99.2 - Dependence on renal dialysis (6) ESRD (end stage renal disease) on dialysis Code(s): N18.6 - END STAGE RENAL DISEASE; Z99.2 - DEPENDENCE ON RENAL DIALYSIS Status: Chronic (7) Ischemic cardiomyopathy Code(s): I25.5 - ISCHEMIC CARDIOMYOPATHY Status: Chronic (8) Secondary hyperparathyroidism of renal origin Code(s): N25.81 - SECONDARY HYPERPARATHYROIDISM OF RENAL ORIGIN Status: Chronic (9) Acute respiratory failure with hypoxia Code(s): J96.01 - ACUTE RESPIRATORY FAILURE WITH HYPOXIA Status: Acute (10) PNA (pneumonia) Code(s): J18.9 - PNEUMONIA, UNSPECIFIED ORGANISM Status: Ruled-out Qualifiers: Pneumonia type: due to unspecified organism Laterality: bilateral Lung location: unspecified part of lung Qualified Code(s): J18.9 - Pneumonia, unspecified organism - Plan markerly improved, cont HD, -: cont ASA, coreg, statin -: CXR in am, may be DCed if clear * .
[2017-05-24] MEDS ORDERED: Fluticasone Propionate Nasal Spray 16 gm Bottle NASAL SCH (16:30)
[2017-05-24] MEDS: Lidocaine 5% Patch TD PRN (17:26)
[2017-05-24] MEDS: Atorvastatin Calcium 20 MG TAB PO SCH (20:56)
[2017-05-24] MEDS: HYDROcodone/Acetaminophen 5/325 mg Tablet PO PRN (20:58)
[2017-05-25] MEDS: Acetaminophen/Codeine 30-300mg Tablet PO PRN (02:31)
[2017-05-25 05:07] LABS: #Lymphocytes 0.4 thou/uL (1.20-3.40); #Monocytes 0.5 thou/uL (0.11-0.59); #Neutrophils 8.2 thou/uL (1.40-6.50); %Eosinophils 0.1 % (0.0-10.0); %Lymphocytes 4.2 % (21.0-51.0); %Monocytes 5.5 % (0.0-10.0); %Neutrophils 90.3 % (42.0-75.0); Hemoglobin 11.9 g/dL (14.0-18.0); Mean Corpuscular HGB CONC 31.3 g/dL (32.0-36.0); Mean Corpuscular Hemoglobin 33.6 pg (27.0-31.0); Mean Platelet Volume 8.9 fL (7.4-10.4); Platelet Count 181 thou/uL (130-400); RBC Distribution Width 18.5 % (11.5-14.5); Red Blood Cell (RBC) Count 3.55 mill/uL (4.70-6.10)
[2017-05-25 05:35] LABS: Anion Gap 16 mmol/L (10-20); BUN (Urea Nitrogen) 27 mg/dL (8.4-25.7); Calc. Creatinine Clearance 17 mL/min (70-130); Calcium 8.8 mg/dL (7.8-10.44); Carbon Dioxide 26 mmol/L (23-31); Chloride 95 mmol/L (98-107); Estimated GFR-MDRD 24; Glucose 268 mg/dL (83-110); Potassium 3.6 mmol/L (3.5-5.1); Sodium 133 mmol/L (136-145)
[2017-05-25] MEDS: Mometasone/Formoterol 120 PUFF INHALER INH SCH ×2 (06:52→18:43)
[2017-05-25] MEDS: Carvedilol 3.125 MG TAB PO SCH ×2 (09:07→21:30)
[2017-05-25] MEDS: predniSONE 20 MG TAB PO SCH (09:07)
[2017-05-25] MEDS: Cephalexin 250 MG CAP PO SCH ×3 (09:07→21:30)
[2017-05-25] MEDS: Amiodarone 200 MG TAB PO SCH (09:07)
[2017-05-25] MEDS: Fluticasone Propionate Nasal Spray 16 gm Bottle NASAL SCH (09:08)
[2017-05-25] MEDS: Folic Acid/Vit B Comp W-C PO SCH (09:08)
[2017-05-25] MEDS: Sevelamer Carbonate 800 MG TAB PO SCH ×3 (09:08→18:47)
[2017-05-25] MEDS: Polyethylene Glycol 3350 17 GM Packet PO SCH (09:10)
[2017-05-25] MEDS: Megestrol Acetate 800 MG/20 ML UDCUP PO SCH ×2 (09:10→21:30)
--- NOTE | 2017-05-25 09:18 | RAD ---
PORTABLE CHEST 1 VIEW: Date: 05/25/17 Time: 0811 hours HISTORY: Follow-up CHF. FINDINGS/IMPRESSION: Comparison made with exam from previous day. Interval development of patchy infiltrates are seen in the mid lung zones. Remainder of exam is other story stable since the exam of 05/23/17. POS: MEÑO
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
--- NOTE | 2017-05-25 10:24 | PRG ---
DATE OF SERVICE: 05/25/2017 SUBJECTIVE: This morning, he is better. He is less short of breath, less coughing, less wheezing. He is complaining of his left nostril has closed off. I am going to prescribe him some saline nasal spray. Otherwise, his chest x-ray this morning shows mainly cephalization with nonspecific infiltrates consi stent with fluid overload, possibly superimposed pneumonia. Though, he is not coughing any obvious purulent sputum. OBJECTIVE: VITAL SIGNS: His blood pressure is 170/70, sats are 96% on 2 liters, temperature 97. CHEST: Chest reveals decreased breath sounds, no wheezing. CARDIAC: Normal S1, S2. No gallops. ABDOMEN: Soft, no masses. LABORATORY DATA: White count 9000, creatinine 2.5. Blood culture show coagulase negative Staph rela ronny to contamination. IMPRESSION: 1. Respiratory failure, chronic obstructive pulmonary disease, congestive heart failure, fluid overl oad. 2. Abnormal x-ray, probably chronic changes. PLAN: From the pulmonary standpoint of view, stable enough, no change in medication. Disposition as per the primary care physician.
--- NOTE | 2017-05-25 10:25 | PRG ---
DATE OF SERVICE: 05/25/2017 SERVICE: Renal Medicine. SUBJECTIVE: Mr. Vaz is an 81-year-old white male with ESRD and was admitted for congestive hea rt failure. He was in for pulmonary edema and he received 3 consecutive days of hemodialysis. A to flavio of about 8 liters was removed at that time. His breathing is much improved with aggressive dialy sis. This morning, he has no new complaints, except for some nasal congestion. His shortness of arnol ath is much improved. He denies any chest pain. OBJECTIVE: VITAL SIGNS: Blood pressure 170/77 with a heart rate of 76, respiratory rate 16, temperature 97.5, p ulse ox 96%. GENERAL: Noted to be awake, alert, comfortable, not in overt distress. SKIN: Adequate turgor. HEENT: He has pinkish conjunctivae, anicteric sclerae. NECK: No neck mass, no carotid bruits, no JVD. CHEST: No deformities. LUNGS: Decreased breath sounds. HEART: Normal sinus rhythm. No murmur, no gallops, no rubs. ABDOMEN: Globular, soft, nontender, no masses. EXTREMITIES: No edema, no deformities. MEDICATIONS: Of 05/25/2017 was reviewed. LABORATORY DATA: Of 05/25/2017, white count 9, hemoglobin 11.9, sodium 133, potassium 3.6, chloride 95, carbon dioxide 26, BUN 27, creatinine 2.59, glucose 268, calcium 8.8. ASSESSMENT AND PLAN: 1. End-stage renal disease, stable. Tolerating current hemodialysis regimen. Fluid removal only as tolerated. 2. Congestive heart failure, much improved with 3 consecutive days of hemodialysis. Several liters of fluid was removed with clinical improvement with this patient. Continue supportive care. Maxing out fluid removal with dialysis. 3. Nasal congestion. We will discontinue fluticasone and Afrin nasal spray will be given. Overall, prognosis remains guarded.
[2017-05-25] MEDS: HumaLOG 300 UNITS/3 ML VIAL SC PRN (11:31)
[2017-05-25] MEDS: Sodium Chloride 0.65% Nasal 44 ML BOT EA NARE SCH ×2 (15:32→21:30)
[2017-05-25] MEDS: Lidocaine 5% Patch TD PRN (21:29)
[2017-05-25] MEDS: Atorvastatin Calcium 20 MG TAB PO SCH (21:30)
[2017-05-25] MEDS: HYDROcodone/Acetaminophen 5/325 mg Tablet PO PRN (21:47)
[2017-05-26 05:15] LABS: #Lymphocytes 0.8 thou/uL (1.20-3.40); #Monocytes 0.6 thou/uL (0.11-0.59); #Neutrophils 10.6 thou/uL (1.40-6.50); %Basophils 0.1 % (0.0-1.0); %Eosinophils 0.1 % (0.0-10.0); %Lymphocytes 6.7 % (21.0-51.0); %Monocytes 4.9 % (0.0-10.0); %Neutrophils 88.2 % (42.0-75.0); Hemoglobin 11.5 g/dL (14.0-18.0); Mean Corpuscular HGB CONC 30.3 g/dL (32.0-36.0); Mean Corpuscular Hemoglobin 32.2 pg (27.0-31.0); Mean Platelet Volume 8.4 fL (7.4-10.4); Platelet Count 182 thou/uL (130-400); RBC Distribution Width 18.4 % (11.5-14.5); Red Blood Cell (RBC) Count 3.56 mill/uL (4.70-6.10)
[2017-05-26 05:34] LABS: Anion Gap 16 mmol/L (10-20); BUN (Urea Nitrogen) 39 mg/dL (8.4-25.7); Calc. Creatinine Clearance 13 mL/min (70-130); Calcium 8.4 mg/dL (7.8-10.44); Carbon Dioxide 24 mmol/L (23-31); Chloride 94 mmol/L (98-107); Estimated GFR-MDRD 17; Glucose 178 mg/dL (83-110); Potassium 3.9 mmol/L (3.5-5.1); Sodium 130 mmol/L (136-145)
[2017-05-26] MEDS: Mometasone/Formoterol 120 PUFF INHALER INH SCH (07:32)
[2017-05-26] MEDS: Amiodarone 200 MG TAB PO SCH (08:34)
[2017-05-26] MEDS: Cephalexin 250 MG CAP PO SCH (08:34)
[2017-05-26] MEDS: Carvedilol 3.125 MG TAB PO SCH (08:34)
[2017-05-26] MEDS: predniSONE 20 MG TAB PO SCH (08:34)
[2017-05-26] MEDS: Megestrol Acetate 800 MG/20 ML UDCUP PO SCH (08:34)
[2017-05-26] MEDS: Folic Acid/Vit B Comp W-C PO SCH (08:35)
[2017-05-26] MEDS: Polyethylene Glycol 3350 17 GM Packet PO SCH (08:35)
[2017-05-26] MEDS: Fluticasone Propionate Nasal Spray 16 gm Bottle NASAL SCH (08:36)
[2017-05-26] MEDS: Sevelamer Carbonate 800 MG TAB PO SCH ×2 (08:36→13:07)
[2017-05-26] MEDS: Sodium Chloride 0.65% Nasal 44 ML BOT EA NARE SCH (08:37)
--- NOTE | 2017-05-26 10:12 | PRG ---
DATE OF SERVICE: 05/26/2017 SERVICE: Renal Medicine. SUBJECTIVE: Mr. Vaz is an 81-year-old white male with ESRD, admitted for congestive heart fail ure. He came in with florid pulmonary edema, he received consecutive dialysis. Since that time, aft er three consecutive dialysis, his breathing is much improved. His CHF is resolved. No complaints o f chest pain or shortness of breath. PHYSICAL EXAMINATION: VITAL SIGNS: Blood pressure is noted at 137/60 with a heart rate of 88, respiratory rate 18, tempera ture 97.7, pulse ox 98%. GENERAL: Awake, alert, supine, comfortable. SKIN: Adequate turgor. HEENT: He has pinkish conjunctivae, anicteric sclerae. NECK: No neck mass, no carotid bruits, no JVD. CHEST: No deformities. LUNGS: Clear breath sounds. No wheezing, no crackles. HEART: Normal sinus rhythm. No murmur, no gallops or rubs. ABDOMEN: Globular, soft, nontender, no masses. EXTREMITIES: No edema, no deformities. MEDICATIONS: Of 05/26/2017 was reviewed. LABORATORY DATA: Of 05/26/2017, white count 12, hemoglobin 11.5. Sodium 130, potassium 3.9, chlorid e 94, carbon dioxide 24, BUN 39, creatinine 3.46, glucose 170, calcium 8.4. ASSESSMENT AND PLAN: 1. End-stage renal disease, stable. We will continue current Monday, Monday, Monday hemodialysis , maxing out fluid removal as tolerated by the patient. We will obtain 3 liters of fluid removal, if he tolerates it today. 2. Congestive heart failure, clinically much improved with aggressive dialysis. Please note, this p atient received 3 days of consecutive dialysis. We took a total of 8 liters in that time period. He is breathing much better at the present time. I agree with current management. Consider for discha briana in a.m.
[2017-05-26] MEDS: HYDROcodone/Acetaminophen 5/325 mg Tablet PO PRN (11:17)
[2017-05-26 12:00] VITALS: BP 107/70
--- NOTE | 2017-05-26 12:02 | PRG ---
DATE OF SERVICE: 05/26/2017 SUBJECTIVE: He is at his baseline. No shortness breath or cough. She was dialyzed. OBJECTIVE: VITAL SIGNS: Sats on 100% on room air, respiration 16, pulse 82, blood pressure 130/80. CHEST: Decreased breath sounds, no wheezing. CARDIAC: Normal S1, S2. No gallops. ABDOMEN: Soft, no masses. LABORATORY DATA: White count 12,000, H&H is unremarkable. Cultures are negative. IMPRESSION: Chronic obstructive pulmonary disease exacerbation, bronchitis, renal failure, fluid ove rload. DISPOSITION: Home. Pulmonary will see as needed. Follow up in the office as needed.
[2017-05-26 12:09] VITALS: TEMP 97.4
[2017-05-26] MEDS: HumaLOG 300 UNITS/3 ML VIAL SC PRN (12:24)
--- NOTE | 2017-05-26 13:41 | DIS ---
DATE OF ADMISSION: 05/21/2017 DATE OF DISCHARGE: 05/26/2017 DISCHARGE DIAGNOSES: 1. Acute on chronic systolic congestive heart failure with ejection fraction of 20%-25%. 2. Acute respiratory failure with hypoxemia secondary to volume overload and #1. 3. End-stage renal disease with hemodialysis and acute on chronic volume overload. 4. Ischemic cardiomyopathy with ejection fraction of 20%-25%. 5. Traumatic hematoma of the right upper extremity with local wound care. 6. Diabetes mellitus type 2, insulin requiring. 7. Deconditioning. 8. Macrocytic anemia secondary to chronic kidney disease. 9. Secondary hyperparathyroidism of renal origin. CONSULTATIONS: Dr. Urrutia with Pulmonology Service. Dr. Rosenberg with Nephrology Service. PERTINENT LABORATORY DATA AND X-RAY FINDINGS: Sodium ranged between 130-136, creatinine ranged betwe en 2.59-4.40. Estimated GFR ranged between 13-24. BNP 13,021. Lactic acid level 1.3. CBC showed h emoglobin ranging between 10.5-11.9. Blood cultures dated 05/23/2017 showed one out of two with coag ulase negative Staph, likely skin contaminant. Influenza A and B antigen dated 05/21/2017 negative. Portable chest x-ray dated 05/21/2017 showed bilateral pulmonary edema. A 2D transthoracic echocard iogram dated 05/23/2017 showed ejection fraction of 20%-25%. Moderate left atrial dilation. Diastol ic dysfunction noted. Portable chest x-ray dated 05/23/2017 showed pulmonary vascular congestion. P ortable chest x-ray dated 05/25/2017 showed patchy infiltrates of the mid lung zones. HOSPITAL COURSE: Patient was admitted initially to the telemetry unit after presenting with acute vo lume overload in the context of end-stage renal disease and severe ischemic cardiomyopathy with eject ion fraction of 20%-25%. The patient underwent urgent hemodialysis with slow improvement in overall respiratory function. The patient continued on serial hemodialysis during the hospital course with a pproximately 11-12 pound weight loss during the hospital course. The patient continued to receive ox ygen supplementation to maintain O2 saturations greater than 90%. Titrating to room air by the time of discharge. The patient was also evaluated for suspected cellulitis of the right upper extremity r eceiving local wound care from the wound care services. The patient continued on IV and oral antibio tic therapy, transitioning to Keflex 250 mg t.i.d. The patient continued to clinically improve with supportive measures, serial hemodialysis and antibiotic therapy. The patient overall stable and read y for discharge on 05/26/2017. DISCHARGE MEDICATIONS: 1. Keflex 250 mg p.o. t.i.d. x7 days. 2. Prednisone 20 mg 1 tab p.o. daily x5 days, followed by half a tab p.o. daily x5 days. 3. Tylenol 30 mg 1-2 tabs p.o. q.6 hours p.r.n. pain. 4. Amiodarone 400 mg 1 tab p.o. daily. 5. Enteric coated aspirin 81 mg 1 tab p.o. daily. 6. Lipitor 20 mg p.o. at bedtime. 7. Dulcolax suppositories 10 mg per rectum daily p.r.n. 8. Tums 1000 mg p.o. q.6 hours. 9. Colace 100 mg 2 capsules p.o. b.i.d. 10. Epogen 7500 units subcutaneously q. weekly. 11. Tussionex 10 mL p.o. q.4 hours p.r.n. 12. DuoNeb 3 mL nebulized q.6 hours p.r.n. 13. Lidocaine patch 5% 1 patch transdermally daily. 14. Ativan 0.5 mg p.o. daily. 15. Megace 400 mg per 5 mL p.o. b.i.d. 16. Zofran 4 mg p.o. q.8 hours p.r.n. 17. Protonix 40 mg 1 tab p.o. daily. 18. MiraLax 17 grams p.o. daily. 19. Renvela 1600 mg p.o. t.i.d. with meals. 20. Ultram 50 mg p.o. q.i.d. p.r.n. FOLLOWUP: The patient may follow up with his primary care provider, Dr. Tank Stacy within 7 days of discharge. Patient will follow with Dr. Rosenberg with Nephrology Service for hemodialysis Monday, , and Monday. CONDITION ON DISCHARGE: Fair. ACTIVITY: Ad osiris, rolling walker and quad cane for ambulation. DIET: ADA heart healthy and renal. SPECIAL INSTRUCTIONS: Patient to continue 24-hour home care in addition to Home Health Services with [facility]. CODE STATUS: FULL. DISPOSITION: Home 05/26/2017. Total time in preparing and coordinating discharge is 40 minutes.
== END 2017-05-26 13:54 | disposition home or self-care (01) | DRG 291 ==
LOC: ERS 16:28 → ERHOLD 19:00 → OBSVTOIN 05-22 14:53 → 2NO 05-22 17:44
PROVIDERS: ADMIT Family Medicine; ATTEND Family Medicine
PROC: 5A1D70Z Performance of Urinary Filtration, Intermittent, Less than 6 Hours Per Day (ICD-10-PCS; principal; 2017-05-21)
PROC: 5A1D70Z Performance of Urinary Filtration, Intermittent, Less than 6 Hours Per Day (ICD-10-PCS; 2017-05-22)
PROC: 5A1D70Z Performance of Urinary Filtration, Intermittent, Less than 6 Hours Per Day (ICD-10-PCS; 2017-05-23)
PROC: 5A1D70Z Performance of Urinary Filtration, Intermittent, Less than 6 Hours Per Day (ICD-10-PCS; 2017-05-24)
DX: I13.2 Hypertensive heart and chronic kidney disease with heart failure and with stage 5 chronic kidney disease, or end stage renal disease (principal); I50.23 Acute on chronic systolic (congestive) heart failure; J96.01 Acute respiratory failure with hypoxia; E11.22 Type 2 diabetes mellitus with diabetic chronic kidney disease; H90.5 Unspecified sensorineural hearing loss; D53.9 Nutritional anemia, unspecified; S40.021A Contusion of right upper arm, initial encounter; N18.6 End stage renal disease; N25.81 Secondary hyperparathyroidism of renal origin; Z99.2 Dependence on renal dialysis; H54.8 Legal blindness, as defined in USA; E03.9 Hypothyroidism, unspecified; E78.5 Hyperlipidemia, unspecified; K21.9 Gastro-esophageal reflux disease without esophagitis; F41.9 Anxiety disorder, unspecified; F32.9 Major depressive disorder, single episode, unspecified; K59.09 Other constipation; I25.10 Atherosclerotic heart disease of native coronary artery without angina pectoris; I25.5 Ischemic cardiomyopathy; D63.1 Anemia in chronic kidney disease; J44.9 Chronic obstructive pulmonary disease, unspecified; Z87.891 Personal history of nicotine dependence; Z95.1 Presence of aortocoronary bypass graft; Z95.810 Presence of automatic (implantable) cardiac defibrillator; Z79.82 Long term (current) use of aspirin; Z79.4 Long term (current) use of insulin; Z79.899 Other long term (current) drug therapy; X58.XXXA Exposure to other specified factors, initial encounter
CPT/HCPCS: 36415; 36416; 71045; 80048; 80053; 82550; 82553; 82805; 83605; 83690; 83880; 84484; 85025; 87040; 87149; 87340; 87804; 90935; 93005; 93306; 93798; 94640; A4216; G0257; G8978-GP-CM; G8979-GP-CK; J0360; J0696; J1956; J2920; J3490; J7506; J7611; J7620

== ENCOUNTER 2017-05-28 17:18 | Inpatient (IN) | payer MEDICARE, OTHER ==
--- NOTE | 2017-05-28 18:39 | RAD ---
SINGLE VIEW OF THE CHEST: Comparison: 05-22-17, 05-25-17 History: Cough, recent pneumonia. FINDINGS: Single view of the chest shows a cardiomediastinal silhouette which is upper limits of normal in size with atherosclerotic calcifications in the aorta. The patient is status post sternotomy. The pacemak er is unchanged in position. Interstitial markings are present. There is a possible airspace opacity involving the left lower lobe which could represent pneumonia. IMPRESSION: Possible left lower lobe pneumonia versus atelectasis. POS: MEÑO
[2017-05-28 18:40] LABS: #Basophils 0.2 thou/uL (0.0-0.2); #Lymphocytes 0.3 thou/uL (1.20-3.40); #Monocytes 0.7 thou/uL (0.11-0.59); #Neutrophils 13.3 thou/uL (1.40-6.50); %Basophils 1.6 % (0.0-1.0); %Eosinophils 0.1 % (0.0-10.0); %Neutrophils 91.3 % (42.0-75.0); Mean Corpuscular Hemoglobin 32.7 pg (27.0-31.0); Mean Platelet Volume 8.4 fL (7.4-10.4); Platelet Count 153 thou/uL (130-400); RBC Distribution Width 18.5 % (11.5-14.5); Red Blood Cell (RBC) Count 3.37 mill/uL (4.70-6.10); White Blood Cell (WBC) Count 14.5 thou/uL (4.8-10.8)
[2017-05-28 19:09] LABS: ALT (SGPT) 7 U/L (8-55); AST (SGOT) 17 U/L (5-34); Albumin 2.1 g/dL (3.4-4.8); Alkaline Phosphatase 101 U/L (40-150); Anion Gap 17 mmol/L (10-20); BUN (Urea Nitrogen) 40 mg/dL (8.4-25.7); Bilirubin, Total 0.7 mg/dL (0.2-1.2); CK (CPK) 20 U/L (30-200); Calc. Creatinine Clearance 0 mL/min (70-130); Calcium 8.7 mg/dL (7.8-10.44); Carbon Dioxide 26 mmol/L (23-31); Chloride 95 mmol/L (98-107); Estimated GFR-MDRD 15; Globulin 3.3 g/dL (2.4-3.5); Glucose 217 mg/dL (83-110); Potassium 3.6 mmol/L (3.5-5.1); Protein, Total 5.4 g/dL (5.8-8.1); Sodium 134 mmol/L (136-145)
[2017-05-28 19:12] LABS: CKMB 1.7 ng/mL (0-6.6); Troponin I 0.149 ng/mL (< 0.028)
[2017-05-28] MEDS ORDERED: Aspirin 325 MG TAB ONE (19:33)
[2017-05-28] MEDS ORDERED: Senokot 8.6 MG TAB PO PRN (22:14)
[2017-05-28] MEDS ORDERED: Lidocaine 5% Patch TD PRN (22:14)
[2017-05-28] MEDS ORDERED: HumaLOG 300 UNITS/3 ML VIAL SC PRN ×2 (22:14)
[2017-05-28] MEDS ORDERED: Dextrose 5% in Water 1,000 ML IV PRN (22:14)
[2017-05-28] MEDS ORDERED: Lorazepam 0.5 MG TAB PO PRN (22:14)
[2017-05-28] MEDS ORDERED: Dextrose 50% Abboject 50 ML SYRINGE SLOW IVP PRN (22:14)
[2017-05-28 22:30] LABS: Troponin I 0.138 ng/mL (< 0.028)
--- NOTE | 2017-05-29 00:20 | HP ---
REASON FOR ADMISSION: Volume overload, deconditioning. HISTORY OF PRESENT ILLNESS: The patient gives history of developing shortness of breath this afternoon. He also has a dry cough and is unable to expectorate. Patient states he has had some orthopnea and was feeling good on sitting up. He was discharged on the of this month and has not ambulated since then. He lives at [facility] and has 24/7 help there. His last hemodialysis was on Monday. No complaints of fever. No complaints of chest pain or palpitations. 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 PERSONAL HISTORY: Does not abuse alcohol or drugs. Quit smoking 10 years ago. Lives in the [facility] living [facility] with 24/7 health. FAMILY HISTORY: There is history of hypertension and diabetes in the family. Mother had leiomyosarcoma. Father had stroke. CURRENT MEDICATIONS: Amiodarone 400 mg p.o. daily, aspirin 81 mg p.o. daily, Lipitor 20 mg p.o. at bedtime, Coreg 3.125 mg p.o. twice daily. He was discharged on Keflex 250 mg p.o. three times daily for a total duration of 7 days starting from 05/26/2017; Colace 100 mg twice daily, DuoNebs q.6 hourly, lidocaine 5% transdermal patch daily, Megace 5 mL p.o. twice daily, Protonix 40 mg daily, MiraLax 17 grams daily, prednisone tapering dose starting at 20 mg to take over a course of 10 days, sevelamer 1600 mg p.o. 3 times daily, Ultram p.r.n. for pain. ALLERGIES: No known drug allergies. REVIEW OF SYSTEMS: The following complete review of systems was negative, unless otherwise mentioned in the HPI or below: Constitutional: Weight loss or gain, ability to conduct usual activities. Skin: Rash, itching. Eyes: Double vision, pain. ENT/Mouth: Nose bleeding, neck stiffness, pain, tenderness. Cardiovascular: Palpitations, dyspnea on exertion, orthopnea. Respiratory: Shortness of breath, wheezing, cough, hemoptysis, fever or night sweats. Gastrointestinal: Poor appetite, abdominal pain, heartburn, nausea, vomiting, constipation, or diarrhea. Genitourinary: Urgency, frequency, dysuria, nocturia. Musculoskeletal: Pain, swelling. Neurologic/Psychiatric: Anxiety, depression. Allergy/Immunologic: Skin rash, bleeding tendency. PHYSICAL EXAMINATION: GENERAL: The patient is an 81-year-old male who is currently not in any acute distress. VITAL SIGNS: Blood pressure 114/50, pulse 76 per minute, respiratory rate 18 per minute, temperature 97.8 degrees Fahrenheit, saturating 95% on room air. NECK: Supple, no elevated JVD. HEENT: Extraocular muscles intact. Pupils are reacting to light. Oral cavity mucous membranes are moist. No exudates or congestion. CARDIOVASCULAR: S1, S2 heard. Regular rhythm. RESPIRATORY: Air entry 1+ bilateral. There are basal rales plus. ABDOMEN: Soft, bowel sounds heard. No tenderness, rigidity or guarding. EXTREMITIES: Upper mild peripheral edema bilateral, no calf tenderness. VASCULAR SYSTEM: Peripheral pulses 1+ bilateral. No ischemic ulcerations or gangrene. CENTRAL NERVOUS SYSTEM: No gross focal deficits seen. Patient is alert, awake , oriented well. PSYCHIATRIC: The patient's mood is euthymic. No hallucinations or delusions. LABORATORY AND X-RAY FINDINGS: White count of 14, H&H 11 and 35, platelet count 153 with 91% neutrophils. Electrolytes are stable. BUN 40, creatinine 3.9, glucose 217, troponin I 0.14, CK-MB 1.7, albumin is 2.1. Influenza A and B antigens are negative. Chest x-ray shows questionable left lower lobe pneumonia versus atelectasis. CLINICAL IMPRESSION AND PLAN: The patient will be under observation on medical floor for possible volume overload. He had his dialysis on Monday and it is unclear if he had a full 4-hour session. Also, patient is severely deconditioned and has not ambulated since the time he got discharged. His chest x-ray also shows some questionable left lung pneumonia. The patient was on antibiotics when he got discharged from the hospital. Previous respiratory virus panel, PCR done on 04/25/2017 was positive for influenza A (H3). He was given a dose of Zosyn in the ER and will continue the same. We will continue his aspirin, Lipitor, Coreg, DuoNebs q.6 hours. We will continue his prednisone tapering as before. His elevated white count is likely due to steroids that he is on. We will also continue his Megace. Please note patient' s albumin is 2.1 and has protein malnutrition. We will also request case management consultation for possible skilled unit. Dr. Rosenberg will be consulted for hemodialysis in the morning now. AILYN
[2017-05-29 00:32] VITALS: BMI 22.8
[2017-05-29] MEDS: Guaifenesin DM 100-10/5 ML UDCUP PO PRN ×3 (03:01→14:23)
[2017-05-29] MEDS: Acetaminophen 325 MG TAB PO PRN ×2 (04:28→12:59)
[2017-05-29] MEDS ORDERED: Ondansetron HCl/PF 4 MG/2 ML Vial IVP PRN (05:43)
[2017-05-29] MEDS: Piperacillin/Tazobactam 2.25 GM in Sodium Chloride 0.9% 100 ML IVPB SCH ×3 (05:49→21:02)
[2017-05-29 05:58] LABS: #Lymphocytes 0.6 thou/uL (1.20-3.40); #Monocytes 0.7 thou/uL (0.11-0.59); #Neutrophils 10.2 thou/uL (1.40-6.50); %Basophils 0.1 % (0.0-1.0); %Eosinophils 0.4 % (0.0-10.0); %Lymphocytes 5.5 % (21.0-51.0); %Monocytes 6.1 % (0.0-10.0); %Neutrophils 87.9 % (42.0-75.0); Hemoglobin 11.3 g/dL (14.0-18.0); Mean Corpuscular Hemoglobin 32.5 pg (27.0-31.0); Mean Platelet Volume 8.3 fL (7.4-10.4); Platelet Count 174 thou/uL (130-400); RBC Distribution Width 18.1 % (11.5-14.5); Red Blood Cell (RBC) Count 3.47 mill/uL (4.70-6.10); White Blood Cell (WBC) Count 11.7 thou/uL (4.8-10.8)
[2017-05-29 06:31] LABS: Anion Gap 17 mmol/L (10-20); BUN (Urea Nitrogen) 44 mg/dL (8.4-25.7); Calc. Creatinine Clearance 11 mL/min (70-130); Calcium 8.8 mg/dL (7.8-10.44); Carbon Dioxide 24 mmol/L (23-31); Chloride 96 mmol/L (98-107); Estimated GFR-MDRD 14; Glucose 213 mg/dL (83-110); Potassium 3.7 mmol/L (3.5-5.1); Sodium 133 mmol/L (136-145)
[2017-05-29] MEDS: Megestrol Acetate 800 MG/20 ML UDCUP PO SCH ×2 (07:38→19:34)
[2017-05-29] MEDS: Famotidine 20 MG TAB PO SCH (07:39)
[2017-05-29] MEDS: Sevelamer Carbonate 800 MG TAB PO SCH ×3 (07:39→18:23)
[2017-05-29] MEDS: predniSONE 20 MG TAB PO SCH (07:41)
[2017-05-29] MEDS: Amiodarone 200 MG TAB PO SCH (07:42)
[2017-05-29] MEDS: Carvedilol 3.125 MG TAB PO SCH ×2 (07:42→19:34)
[2017-05-29] MEDS: Heparin 5,000 UNITS/ML VIAL SC SCH ×2 (07:47→19:35)
--- NOTE | 2017-05-29 11:54 | PRG ---
DATE OF SERVICE: 05/29/2017 SUBJECTIVE: Mr. Vaz is an 81-year-old white male with ESRD - on maintenance hemodialysis and w as readmitted for cough. A chest x-ray showed a? of left lower lobe pneumonia versus atelectasis. F or that reason, he was admitted for observation. We are being consulted for his maintenance hemodial ysis. I am currently at the bedside with the patient supervising his hemodialysis. I am attempting at 3.5 liter fluid removal with him. Please note, he came in last week for florid pulmonary edema. The patient voices no new complaints. His shortness of breath is not any worse. He does have a dry cough. OBJECTIVE: VITAL SIGNS: Blood pressure 154/70, heart rate 70, respiratory rate 12. GENERAL: Awake, supine, comfortable, not in overt distress. SKIN: Adequate turgor. HEENT: He has pinkish conjunctivae, anicteric sclerae. NECK: No neck mass, no carotid bruits, no JVD. CHEST: No deformities. LUNGS: Decreased breath sounds. HEART: Normal sinus rhythm. No murmur, no gallops, no rubs. ABDOMEN: Globular, soft, nontender, no masses. EXTREMITIES: No edema, no deformities. MEDICATIONS: Of 05/29/2017 was reviewed. LABORATORY DATA AND X-RAY FINDINGS: Of 05/29/2017, white count 11.7, hemoglobin 11.3, sodium 133, po tassium 3.7, chloride 96, carbon dioxide 24, BUN 44, creatinine 4.19, glucose 213, calcium 8.8. Trop onin I 0.138. Chest x-ray? of possible left lower lobe pneumonia versus atelectasis. ASSESSMENT AND PLAN: 1. ? of pneumonia. Continue to observe, empiric IV antibiotics. 2. End-stage renal disease, stable. Tolerating current dialysis regimen. Fluid removal only as alix erated. I am at the bedside supervising his dialysis. 3. Congestive heart failure, stable. Patient clinically asymptomatic. Chest x-ray did not show any overt pulmonary edema. Again, fluid removal as tolerated.
[2017-05-29] MEDS: Polyethylene Glycol 3350 17 GM Packet PO SCH (13:00)
[2017-05-29] MEDS: traMADol HCl 50 MG TAB PO PRN ×2 (14:23→20:51)
--- NOTE | 2017-05-29 15:37 | PDOC.PN ---
- Subjective Encounter Start Date: 05/29/17 Encounter Start Time: 15:35 Subjective: Seen and examined c/o pain all over - Objective Resuscitation Status: Resuscitation Status FULL:Full Resuscitation Vital Signs & Weight: Vital Signs (12 hours) Temp Pulse Resp BP BP Pulse Ox 05/29/17 13:04 73 16 94 L 05/29/17 12:35 97.6 F 80 16 109/41 L 97 05/29/17 08:10 97.6 F 76 16 94/50 L 95 05/29/17 07:00 97.6 F 76 16 94/50 L 95 05/29/17 06:27 72 16 05/29/17 04:19 73 94 L Weight Weight 129 lb I&O: 05/28/17 05/29/17 05/30/17 06:59 06:59 06:59 Intake Total 100 Balance 100 Result Diagrams: 05/29/17 05:34 05/29/17 05:34 Additional Labs: Accuchecks 05/29/17 05/29/17 12:44 05:37 POC Glucose 119 H 232 H Phys Exam - Physical Examination Constitutional: NAD HEENT: PERRLA, moist MMs, sclera anicteric, TM's clear, oral pharynx no lesions Neck: no nodes, no JVD, supple, full ROM Respiratory: no wheezing, no rales, no rhonchi, clear to auscultation bilateral Cardiovascular: RRR, no significant murmur, no rub Gastrointestinal: soft, non-tender, no distention, positive bowel sounds Dx/Plan (1) Acute respiratory failure with hypoxia Code(s): J96.01 - ACUTE RESPIRATORY FAILURE WITH HYPOXIA Status: Acute Comment: Improved, wean off O2 supplementation (2) Rib pain on left side Code(s): R07.81 - PLEURODYNIA Status: Acute (3) Anemia in chronic kidney disease (CKD) Code(s): N18.9 - CHRONIC KIDNEY DISEASE, UNSPECIFIED; D63.1 - ANEMIA IN CHRONIC KIDNEY DISEASE Status: Chronic Qualifiers: (4) CHF (congestive heart failure), NYHA class III Code(s): I50.9 - HEART FAILURE, UNSPECIFIED Status: Chronic Qualifiers: (5) Diabetes type 2, controlled Code(s): E11.9 - TYPE 2 DIABETES MELLITUS WITHOUT COMPLICATIONS Status: Chronic Qualifiers: (6) ESRD (end stage renal disease) on dialysis Code(s): N18.6 - END STAGE RENAL DISEASE; Z99.2 - DEPENDENCE ON RENAL DIALYSIS Status: Chronic Comment: HD per Renal service, 11lb weight loss since admit (7) Acute respiratory failure with hypoxia Code(s): J96.01 - ACUTE RESPIRATORY FAILURE WITH HYPOXIA Status: Acute (8) Pneumonia Code(s): J18.9 - PNEUMONIA, UNSPECIFIED ORGANISM Status: Acute - Plan plan discussed w/ family, continue antibiotics, PT/OT, social work case manager, respiratory therapy Oxygen supplementation -: Encourage ambulation -: Dialysis per renal -: Change to in patient * .
[2017-05-29] MEDS: Atorvastatin Calcium 20 MG TAB PO SCH (19:34)
[2017-05-29] MEDS ORDERED: Lidocaine Patch Removal 1 EACH TOP SCH (21:00)
[2017-05-29] MEDS ORDERED: Lidocaine 5% Patch TD PRN (21:59)
[2017-05-30] MEDS: Piperacillin/Tazobactam 2.25 GM in Sodium Chloride 0.9% 100 ML IVPB SCH ×3 (05:27→21:03)
[2017-05-30] MEDS: Famotidine 20 MG TAB PO SCH (07:56)
[2017-05-30] MEDS: predniSONE 20 MG TAB PO SCH (07:56)
[2017-05-30] MEDS: Heparin 5,000 UNITS/ML VIAL SC SCH ×2 (07:56→20:15)
[2017-05-30] MEDS: Carvedilol 3.125 MG TAB PO SCH ×2 (07:57→20:13)
[2017-05-30] MEDS: Amiodarone 200 MG TAB PO SCH (07:57)
[2017-05-30] MEDS: traMADol HCl 50 MG TAB PO PRN (07:58)
[2017-05-30] MEDS: Sevelamer Carbonate 800 MG TAB PO SCH ×3 (08:03→18:15)
[2017-05-30] MEDS: Polyethylene Glycol 3350 17 GM Packet PO SCH (08:03)
[2017-05-30] MEDS: Megestrol Acetate 800 MG/20 ML UDCUP PO SCH ×2 (08:03→20:11)
[2017-05-30] MEDS: Lidocaine Patch Removal 1 EACH TOP SCH (08:06)
--- NOTE | 2017-05-30 13:56 | PDOC.PN ---
- Subjective Encounter Start Date: 05/30/17 Encounter Start Time: 13:54 Mr. Vaz was seen today in follow-up. He says he is feeling a bit better today. He says the shortness of breath has resolved. He still coughs and feels congested however. - Objective MAR Reviewed: Yes Vital Signs & Weight: Vital Signs (12 hours) Temp Pulse Resp BP Pulse Ox 05/30/17 12:00 97.6 F 71 18 101/44 L 100 05/30/17 08:00 98.3 F 76 20 96 05/30/17 07:35 98.3 F 76 20 111/51 L 96 Weight Admit Weight 129 lb Weight 129 lb I&O: 05/29/17 05/30/17 05/31/17 06:59 06:59 06:59 Intake Total 1050 Balance 1050 Result Diagrams: 05/29/17 05:34 05/29/17 05:34 Additional Labs: Accuchecks 05/30/17 05/30/17 05/29/17 12:14 05:51 20:56 POC Glucose 203 H 133 H 124 H 05/29/17 15:45 POC Glucose 131 H Phys Exam - Physical Examination HEENT: PERRLA Respiratory: no wheezing, no rales + rhonchi bilaterally Cardiovascular: RRR, no significant murmur, no rub Gastrointestinal: soft, non-tender, positive bowel sounds Musculoskeletal: no edema Dx/Plan (1) Acute respiratory failure with hypoxia Code(s): J96.01 - ACUTE RESPIRATORY FAILURE WITH HYPOXIA Status: Acute (2) Pneumonia Code(s): J18.9 - PNEUMONIA, UNSPECIFIED ORGANISM Status: Acute (3) Acute on chronic systolic (congestive) heart failure Code(s): I50.23 - ACUTE ON CHRONIC SYSTOLIC (CONGESTIVE) HEART FAILURE Status : Acute Comment: Mixed type CHF with EF 20-25%, overall improved with volume removal via HD (4) Diabetes type 2, controlled Code(s): E11.9 - TYPE 2 DIABETES MELLITUS WITHOUT COMPLICATIONS Status: Chronic Qualifiers: (5) ESRD (end stage renal disease) on dialysis Code(s): N18.6 - END STAGE RENAL DISEASE; Z99.2 - DEPENDENCE ON RENAL DIALYSIS Status: Chronic Comment: HD per Renal service, 11lb weight loss since admit - Plan * Acute on chronic respiratory failure due to pneumonia and volume overload- he is clinically improving * Can change antibiotics to oral in the AM if he continues to improve * ESRD- continue dialysis as per Nephrology * DM- blood glucose is stable * Continue PT/OT for re-conditioning * Discharge planning is in progress.
[2017-05-30] MEDS: Atorvastatin Calcium 20 MG TAB PO SCH (20:13)
[2017-05-30] MEDS: guaiFENesin ER 600 MG TAB PO SCH (20:13)
[2017-05-31] MEDS: traMADol HCl 50 MG TAB PO PRN ×2 (01:09→19:23)
[2017-05-31] MEDS: Piperacillin/Tazobactam 2.25 GM in Sodium Chloride 0.9% 100 ML IVPB SCH (05:41)
[2017-05-31 09:12] LABS: #Lymphocytes 0.4 thou/uL (1.20-3.40); #Monocytes 0.7 thou/uL (0.11-0.59); #Neutrophils 6.9 thou/uL (1.40-6.50); %Eosinophils 0.5 % (0.0-10.0); %Lymphocytes 5.3 % (21.0-51.0); %Monocytes 8.2 % (0.0-10.0); Mean Corpuscular HGB CONC 31.4 g/dL (32.0-36.0); Mean Platelet Volume 7.8 fL (7.4-10.4); Platelet Count 193 thou/uL (130-400); RBC Distribution Width 17.9 % (11.5-14.5); Red Blood Cell (RBC) Count 3.63 mill/uL (4.70-6.10)
--- NOTE | 2017-05-31 09:14 | PRG ---
DATE OF SERVICE: 05/31/2017 SERVICE: Renal Medicine. SUBJECTIVE: Mr. Vaz is an 81-year-old white male with known history of ESRD - on maintenance h emodialysis. He was admitted for mild shortness of breath. The issue is whether he may have pneumon ia. He is now being empirically treated with antibiotics. We are following up this patient for his maintenance hemodialysis. I am currently at the bedside and supervising his hemodialysis. I am atte mpting to remove 3.5 liter of fluid with this patient - as tolerated. He denies any shortness of arnol ath. However, he does complain of his chronic back pain. OBJECTIVE: VITAL SIGNS: Blood pressure is 105/47, heart rate 73, respiratory rate 16, temperature 97.6, pulse o ximetry 100%. GENERAL: Awake, comfortable, not in overt distress. SKIN: Adequate turgor. HEENT: Pinkish conjunctivae, anicteric sclerae. NECK: No neck mass, no carotid bruits, no JVD. CHEST: No deformities. LUNGS: Clear breath sounds. No wheezing, no crackles. HEART: Normal sinus rhythm. No murmur, no gallops, no rubs. ABDOMEN: Globular, soft, nontender, no masses. EXTREMITIES: No edema. MEDICATIONS: Of 05/31/2017 was reviewed. LABORATORY DATA: Of 05/29/2017, white count 11.7, hemoglobin 11.3. On 05/31/2017, glucose 159. On 05/29/2017, BUN 44, creatinine 4.19, potassium 3.7. ASSESSMENT AND PLAN: 1. End-stage renal disease, continuing Monday, Monday, Monday hemodialysis. We will plan for thr ee and half hour hemodialysis. As previously mentioned, attempting 3.5 liter fluid removal as tolera ronny. 2. Shortness of breath, multifactorial -? of underlying congestive heart failure versus pneumonia. We will max out fluid removal. Continue IV antibiotics. We will be rechecking a basic metabolic swann el and CBC with this patient tomorrow if the patient is still here. Otherwise, continue current arabella gement.
[2017-05-31 09:20] LABS: Anion Gap 10 mmol/L (10-20); BUN (Urea Nitrogen) 20 mg/dL (8.4-25.7); Calc. Creatinine Clearance 23 mL/min (70-130); Calcium 8.4 mg/dL (7.8-10.44); Carbon Dioxide 30 mmol/L (23-31); Chloride 100 mmol/L (98-107); Estimated GFR-MDRD 31; Glucose 159 mg/dL (83-110); Potassium 3.3 mmol/L (3.5-5.1); Sodium 137 mmol/L (136-145)
[2017-05-31] MEDS: Famotidine 20 MG TAB PO SCH (12:18)
[2017-05-31] MEDS: Heparin 5,000 UNITS/ML VIAL SC SCH (12:18)
[2017-05-31] MEDS: Amiodarone 200 MG TAB PO SCH (12:18)
[2017-05-31] MEDS: guaiFENesin ER 600 MG TAB PO SCH (12:18)
[2017-05-31] MEDS: Carvedilol 3.125 MG TAB PO SCH (12:19)
[2017-05-31] MEDS: Sevelamer Carbonate 800 MG TAB PO SCH ×2 (12:20→19:13)
[2017-05-31] MEDS: predniSONE 20 MG TAB PO SCH (12:21)
[2017-05-31] MEDS: Polyethylene Glycol 3350 17 GM Packet PO SCH (12:24)
[2017-05-31] MEDS: Lidocaine Patch Removal 1 EACH TOP SCH (12:24)
[2017-05-31] MEDS: Megestrol Acetate 800 MG/20 ML UDCUP PO SCH (12:24)
[2017-05-31 12:45] VITALS: TEMP 97.8
--- NOTE | 2017-05-31 13:09 | PDOC.PN ---
- Subjective Encounter Start Date: 05/31/17 Encounter Start Time: 13:04 Mr. Vaz was seen in follow-up. He complains of continued back pain, but this has been bothering him for over 7 yeras. He admits that he is breathing a little better, and his cough has improved. - Objective MAR Reviewed: Yes Vital Signs & Weight: Vital Signs (12 hours) Temp Pulse Resp BP Pulse Ox 05/31/17 12:45 97.8 F 81 20 115/45 L 99 05/31/17 08:00 97.8 F 81 20 20 L Weight Admit Weight 129 lb Weight 129 lb I&O: 05/30/17 05/31/17 06/01/17 06:59 06:59 06:59 Intake Total 1050 1050 Balance 1050 1050 Result Diagrams: 05/31/17 08:48 05/31/17 08:48 Additional Labs: Accuchecks 05/31/17 05/31/17 05/30/17 12:49 05:23 19:59 POC Glucose 147 H 159 H 154 H 05/30/17 15:28 POC Glucose 127 H Phys Exam - Physical Examination HEENT: PERRLA Respiratory: no wheezing, no rales, no rhonchi, clear to auscultation bilateral Cardiovascular: RRR, no significant murmur, no rub Gastrointestinal: soft, non-tender, positive bowel sounds Musculoskeletal: no edema Dx/Plan (1) Acute respiratory failure with hypoxia Code(s): J96.01 - ACUTE RESPIRATORY FAILURE WITH HYPOXIA Status: Acute (2) Pneumonia Code(s): J18.9 - PNEUMONIA, UNSPECIFIED ORGANISM Status: Acute (3) Acute on chronic systolic (congestive) heart failure Code(s): I50.23 - ACUTE ON CHRONIC SYSTOLIC (CONGESTIVE) HEART FAILURE Status : Acute Comment: Mixed type CHF with EF 20-25%, overall improved with volume removal via HD (4) Diabetes type 2, controlled Code(s): E11.9 - TYPE 2 DIABETES MELLITUS WITHOUT COMPLICATIONS Status: Chronic Qualifiers: (5) ESRD (end stage renal disease) on dialysis Code(s): N18.6 - END STAGE RENAL DISEASE; Z99.2 - DEPENDENCE ON RENAL DIALYSIS Status: Chronic Comment: HD per Renal service, 11lb weight loss since admit - Plan * Acute Respiratory failure due to Pneumonia and Volume overload- He has improved clinically * He is now afebrile, and has no fever, will discontinue Zosyn and start Augmentin * ESRD- continue Dialysis as indicated * DM- blood glucose is stable * Deconditioning- continue PT/OT, and anticipate Rehab transfer..
[2017-05-31 17:40] VITALS: BP 133/60
[2017-05-31] MEDS ORDERED: Amoxicillin/Potassium Clav 500 MG TAB PO SCH (21:00)
--- NOTE | 2017-06-01 01:16 | DIS ---
DATE OF ADMISSION: 05/29/2017 DATE OF DISCHARGE: 05/31/2017 PRIMARY CARE PROVICER: Tank Stacy D.O. DISCHARGE DISPOSITION: Home. PRIMARY DISCHARGE DIAGNOSES: 1. Acute on chronic respiratory failure secondary to pneumonia and volume overload. 2. End-stage renal disease with volume overload, on hemodialysis. 3. History of chronic systolic heart failure with an ejection fraction of 20%-25%. 4. Ischemic cardiomyopathy. 5. Diabetes mellitus, type 2. 6. Sensorineural deafness. 7. Hypothyroidism. 8. Coronary artery disease. DISCHARGE MEDICATIONS: Include Augmentin 500 mg twice a day for 7 days, tramadol 50 mg daily, Fleet' s enema p.r.n., Renvela 800 mg 2 tablets 3 times a day, prednisone 20 mg daily, Protonix 40 mg daily, Zofran 4 mg as needed, Megace 400 mg twice a daily, magnesium hydroxide as needed, Ativan 0.5 mg as needed, Lidoderm patch p.r.n., DuoNeb q.6 hours as needed, carvedilol 3.125 mg twice daily, calcium c arbonate 1000 mg twice a day, Dulcolax 10 mg p.r.n., Lipitor 20 mg at bedtime, aspirin 81 mg daily, a miodarone 400 mg daily. CODE STATUS: FULL CODE. ALLERGIES: No known drug allergies. HOSPITAL COURSE: Mr. Vaz is a pleasant 81-year-old gentleman who presented to the emergency ro om with complaints of shortness of breath. He was found to have some degree of volume overload as we ll as possible pneumonitis. His mechanical shovel operator was consulted and he underwent dialysis treatment with the removal of additional fluids. He was also placed on IV antibiotics, particularly Zosyn as it was also noted that he had an elevation in his white blood cell count as well as an elevation of white b lood cell count. Over the course of the next couple of days, he improved significantly; however, he was severely deconditioned and as a result is being transferred to the inpatient rehab for physical t herapy.
[2017-06-03] MEDS ORDERED: predniSONE 20 MG TAB PO SCH (08:00)
--- NOTE | 2017-07-01 18:18 | EKG ---
Test Reason : Blood Pressure : / mmHG Vent. Rate : 073 BPM Atrial Rate : 073 BPM P-R Int : 176 ms QRS Dur : 086 ms QT Int : 420 ms P-R-T Axes : 054 -25 120 degrees QTc Int : 462 ms Sinus rhythm with Premature atrial complexes Left ventricular hypertrophy with repolarization abnormality Inferior infarct , age undetermined Anterior infarct , age undetermined Abnormal ECG Confirmed by REHANA SHAH ([id number]), online content editor HARRIETT ZAVALETA ([id number]) on 07/01/2017 6:18:17 PM Referred By: Confirmed By:REHANA SHAH
== END 2017-05-31 19:32 | DRG 291 ==
LOC: ERS 17:18 → ERHOLD 19:21 → ONC 23:57 → OBSVTOIN 05-29 15:44 → ONC 05-30 20:47
PROVIDERS: ADMIT Internal Medicine Infectious Disease; ATTEND Internal Medicine Infectious Disease
PROC: 5A1D70Z Performance of Urinary Filtration, Intermittent, Less than 6 Hours Per Day (ICD-10-PCS; principal; 2017-05-31)
DX: I13.2 Hypertensive heart and chronic kidney disease with heart failure and with stage 5 chronic kidney disease, or end stage renal disease (principal); J18.9 Pneumonia, unspecified organism; J96.21 Acute and chronic respiratory failure with hypoxia; E46 Unspecified protein-calorie malnutrition; N18.6 End stage renal disease; E11.22 Type 2 diabetes mellitus with diabetic chronic kidney disease; D63.1 Anemia in chronic kidney disease; I50.23 Acute on chronic systolic (congestive) heart failure; Z95.1 Presence of aortocoronary bypass graft; I25.5 Ischemic cardiomyopathy; H90.5 Unspecified sensorineural hearing loss; Z99.2 Dependence on renal dialysis; H54.8 Legal blindness, as defined in USA; Z95.0 Presence of cardiac pacemaker; E03.9 Hypothyroidism, unspecified; E78.5 Hyperlipidemia, unspecified; F41.9 Anxiety disorder, unspecified; F32.9 Major depressive disorder, single episode, unspecified; Z87.891 Personal history of nicotine dependence; R53.81 Other malaise; Z68.22 Body mass index [BMI] 22.0-22.9, adult
CPT/HCPCS: 36415; 36416; 71045; 80048; 80053; 82550; 82553; 83880; 84484; 85025; 87040; 87804; 90935; 93005; 94640; 96361; 96365; 96366; 96375; G0257; G8978-GP-CM; G8979-GP-CK; G8987-GO-CM; G8988-GO-CL; J0696; J1644; J2405; J2543; J7050; J7506; J7620

== ENCOUNTER 2017-06-16 20:58 | Emergency (ER) | payer MEDICARE, OTHER ==
--- NOTE | 2017-06-16 21:43 | RAD ---
PORTABLE CHEST: 06/16/17 HISTORY: Right shoulder dislocation. Shortness of breath. COMPARISON: 06/10/17. Cardiomegaly with vascular congestion again noted. There is bilateral perihilar edema or infiltrates. Gas filled mildly dilated colon is interposed under the right hemidiaphragm, similar to the prior ex am. Gas in the stomach under the left hemidiaphragm has similar appearance. Deformity of the right humeral head with displaced fracture of the proximal right humerus appears unc hanged. Degenerative changes at the left shoulder noted. IMPRESSION: Cardiomegaly with vascular congestion and perihilar edema more prominent than on the prior exam. POS: [facility]
--- NOTE | 2017-06-16 21:51 | RAD ---
RIGHT SHOULDER: 06/16/17 HISTORY: Cough and shortness of breath. Question shoulder dislocation. Comparison made to chest x-rays which image the right shoulder dated 05/28/17 and 06/10/17. Deformity of the humeral head is again seen with sclerosis and erosive change. There is a displaced f racture of the proximal right humerus with overriding fragments. This is a new finding when compared to the 05/28/17 chest exam; however, it was present on the 06/10/17 chest exam. Position does not appear significantly different from the 06/10/17 study. POS: [facility]
== END 2017-06-16 23:47 | disposition home or self-care (01) ==
LOC: ERS 20:58
DX: S42.291A Other displaced fracture of upper end of right humerus, initial encounter for closed fracture (principal); E11.22 Type 2 diabetes mellitus with diabetic chronic kidney disease; N18.6 End stage renal disease; I12.0 Hypertensive chronic kidney disease with stage 5 chronic kidney disease or end stage renal disease; E11.40 Type 2 diabetes mellitus with diabetic neuropathy, unspecified; Z99.2 Dependence on renal dialysis; Z87.891 Personal history of nicotine dependence; Z79.82 Long term (current) use of aspirin; Z79.899 Other long term (current) drug therapy; X58.XXXA Exposure to other specified factors, initial encounter
CPT/HCPCS: 71045

== ENCOUNTER 2017-06-24 11:18 | Inpatient (IN) | payer MEDICARE, OTHER ==
[2017-06-24] MEDS ORDERED: Dextrose 50% Abboject 50 ML SYRINGE ONE (11:32)
[2017-06-24 11:59] LABS: Base Excess-Venous 1.8 mmol/L (-30.0-30.0); Bicarbonate (HCO3v) 26.5 mmol/L (1.0-85.0); CO2 Tension (PvCO2) 40.7 mmHg (41.0-51.0); Calcium, Ionized 0.92 mmol/L (1.12-1.32); Hemoglobin - Calc 17.3 g/dL (12.0-18.0); Potassium 5.9 mmol/L (3.4-4.7); T. Carbon Dioxide 27.7 mmol/L (1.0-85.0); pH (Venous) 7.421 (7.35-7.45); vO2 Saturation-calc 79.5 % (0.0-100.0)
[2017-06-24 12:10] LABS: ALT (SGPT) 16 U/L (8-55); AST (SGOT) 28 U/L (5-34); Albumin 2.4 g/dL (3.4-4.8); Alkaline Phosphatase 108 U/L (40-150); Anion Gap 17 mmol/L (10-20); BUN (Urea Nitrogen) 15 mg/dL (8.4-25.7); Bilirubin, Total 0.3 mg/dL (0.2-1.2); Calc. Creatinine Clearance 0 mL/min (70-130); Calcium 9.3 mg/dL (7.8-10.44); Carbon Dioxide 24 mmol/L (23-31); Chloride 101 mmol/L (98-107); Estimated GFR-MDRD 26; Globulin 3.4 g/dL (2.4-3.5); Potassium 3.2 mmol/L (3.5-5.1); Protein, Total 5.8 g/dL (5.8-8.1); Sodium 139 mmol/L (136-145)
[2017-06-24 12:14] LABS: Glucose 43 mg/dL (83-110)
[2017-06-24 12:16] LABS: Band 9 % (5-11); Hemoglobin 14.9 g/dL (14.0-18.0); Lymphocytes 5 % (21-51); MDiff Complete? YES; Macrocytosis SLIGHT = 6-15 cells (100X) (0-5/hpf); Mean Corpuscular HGB CONC 31.1 g/dL (32.0-36.0); Mean Corpuscular Hemoglobin 32.5 pg (27.0-31.0); Mean Platelet Volume 8.6 fL (7.4-10.4); Monocytes 4 % (0-10); Neutrophil 82 % (42-75); Nucleated RBC 2 % (0); Platelet Count 191 thou/uL (130-400); Polychromasia MODERATE = 3-4 cells (100X) (0-2/hpf); RBC Distribution Width 19.2 % (11.5-14.5); Red Blood Cell (RBC) Count 4.57 mill/uL (4.70-6.10); White Blood Cell (WBC) Count 15.2 thou/uL (4.8-10.8)
[2017-06-24] MEDS ORDERED: Norepinephrine 8 MG in Sodium Chloride 0.9% 250 ML 250 ML IVPB PRN ×2 (12:57→13:01)
[2017-06-24] MEDS ORDERED: Piperacillin/Tazobactam 4.5 GM in Sodium Chloride 0.9% 100 ML IVPB SCH (14:00)
--- NOTE | 2017-06-24 14:34 | RAD ---
SINGLE VIEW OF THE CHEST: COMPARISON: 06/16/17. History Shortness of breath and right arm pain. Cough. FINDINGS: A single view of the chest shows a cardiomediastinal silhouette which is upper limits of normal in si ze with atherosclerotic calcifications in the aorta. He patient is status post sternotomy. The pace maker is unchanged in position. Increased interstitial lung markings are present. No consolidation or pleural effusion is seen. IMPRESSION: Stable cardiomegaly. POS: [facility]
--- NOTE | 2017-06-24 15:31 | RAD ---
SINGLE VIEW OF THE CHEST: COMPARISON: 06/24/17 at 12:23 p.m. HISTORY: Central line attempt. FINDINGS: A single view of the chest shows an enlarged but stable cardiomediastinal silhouette. The patient is status post sternotomy. The pacemaker is unchanged in position. Low lung volumes are present. The re is no evidence of consolidation, mass, pneumothorax, or pleural effusion. IMPRESSION: Cardiomegaly without evidence of acute cardiopulmonary disease. POS: [facility]
[2017-06-24 15:46] LABS: Lactic Acid 3.1 mmol/L (0.5-2.2)
[2017-06-24] MEDS ORDERED: HYDROcodone/Acetaminophen 10/325 mg Tablet PO PRN (16:12)
[2017-06-24] MEDS ORDERED: HumaLOG 300 UNITS/3 ML VIAL SC PRN (16:12)
[2017-06-24] MEDS ORDERED: Ondansetron HCl/PF 4 MG/2 ML Vial IVP PRN (16:12)
[2017-06-24] MEDS ORDERED: Dextrose 50% Abboject 50 ML SYRINGE SLOW IVP PRN (16:12)
[2017-06-24] MEDS ORDERED: Dextrose 5% in Water 1,000 ML IV PRN (16:12)
[2017-06-24] MEDS ORDERED: Ondansetron ODT 4 MG TAB PO PRN (16:12)
[2017-06-24] MEDS ORDERED: Sodium Chloride 0.9% 1,000 ML IV SCH ×3 (16:15→19:15)
[2017-06-24] MEDS ORDERED: Vancomycin HCl 1.25 GM in Sodium Chloride 0.9% 250 ML 250 ML IVPB SCH (16:15)
[2017-06-24] MEDS: Acetaminophen 325 MG TAB PO PRN (20:40)
[2017-06-24] MEDS ORDERED: Famotidine/PF 20 mg/2ml Vial SLOW IVP SCH (21:00)
--- NOTE | 2017-06-24 21:48 | CON ---
DATE OF CONSULTATION: 06/24/2017 SERVICE: Pulmonary Medicine. REASON FOR CONSULTATION: Septic shock. HISTORY OF PRESENT ILLNESS: The patient is an 81-year-old white male with past medical history significant for end-stage renal disease. He was in his usual state of health yesterday. When he woke up this morning, he had nausea and no appetite. He did not drink or eat anything all day. He felt increasingly weak and presented to the Emergency Department with similar complaints. He denies shortness of breath, cough, fevers, chills, sputum production, diarrhea, or any other focalizing infectious symptoms. PAST MEDICAL HISTORY: 1. End-stage renal disease. 2. Chronic systolic heart failure (EF 20%-25%). 3. Type 2 diabetes mellitus. 4. Hypertension. 5. Dyslipidemia. 6. Deconditioning. 7. Anemia. 8. Blindness. 9. Deafness. 10. Hypothyroidism. PAST SURGICAL HISTORY: 1. Coronary artery bypass graft. 2. Pacemaker placement. 3. Dialysis access of the left upper extremity. 4. Back surgery. 5. Knee surgery. 6. 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 FAMILY HISTORY: Noncontributory. SOCIAL HISTORY: Negative for alcohol, tobacco or illicit drug use currently. He lives in a nursing facility. He quit smoking over 10 years ago, but prior to that, had greater than [id number] history of smoking. ALLERGIES: No known drug allergies. MEDICATIONS: List of inpatient medications were reviewed. No specific updates were made at this time. REVIEW OF SYSTEMS: General, head, ears, eyes, nose, throat, cardiovascular, respiratory, GI, , musculoskeletal, neurologic and skin is negative except as mentioned in HPI. PHYSICAL EXAMINATION: VITAL SIGNS: Afebrile, pulse 88, blood pressure 147/56, respirations 21, saturation 98% on 2 liters nasal cannula. GENERAL: The patient is awake and alert. He is in no apparent distress. LUNGS: Excellent air entry with no prolonged expiratory phase. HEART: Normal rate, regular. ABDOMEN: Soft, nontender, nondistended. Bowel sounds are positive. MUSCULOSKELETAL: No cyanosis or clubbing. There is 1+ pitting in the bilateral lower extremities. NEUROLOGIC: Grossly nonfocal. LABORATORY DATA: WBC 15.2, hemoglobin 14.9, platelets 191,000. Neutrophils 82 % with 9% bands. PH 7.421, pCO2 41 on a VBG. Creatinine 2.38, potassium 3.2. Basic metabolic profile and liver function studies are otherwise unremarkable. Blood sugars were 43, but have improved to 93. Ionized calcium is 0.92, lactate is slowly improving to 3.1. IMAGING: Chest x-ray demonstrates cardiomegaly without acute cardiopulmonary abnormality identified. He has got a high-riding bilateral diaphragm, which accentuate the interstitial markings of his lung. His right hepatic flexure appears to be above the liver. There are sternotomy wires in place as well as a pacemaker. Interstitial markings are accentuated by the low lung volumes. ASSESSMENT: 1. End-stage renal disease. 2. Dehydration. 3. Systemic inflammatory response syndrome. 4. Possible sepsis with unknown source presently. PLAN: The patient was not adequately resuscitated in the Emergency Department. We will give him additional liter of fluid. We will wean away the Levophed if tolerated. We will continue empiric antibiotics for the time being while we await results of our swann culture, but if we do not have any focalizing sepsis symptoms or abnormal cultures at 48 hours, we can likely discontinue all antibiotics. Pulmonary and Critical Care will continue to follow while he remains in this location, but once he is off of Levophed, we can transition him to the floor. 70 minutes have been devoted to this patient in various activities. I personally reviewed all imaging studies and laboratory data noted within this document. For greater than fifty percent of this time, I was interacting with the patient at the bedside or coordinating care with the care team. For the remainder of the time I was immediately available to the patient in the hospital unit. AILYN
[2017-06-24] MEDS: Piperacillin/Tazobactam 2.25 GM in Sodium Chloride 0.9% 100 ML IVPB SCH (22:26)
[2017-06-25] MEDS: Acetaminophen 325 MG TAB PO PRN (04:07)
[2017-06-25 04:57] LABS: Vancomycin, Random Less than 1.1 ug/mL (See Comment)
[2017-06-25 05:03] LABS: ALT (SGPT) 14 U/L (8-55); AST (SGOT) 20 U/L (5-34); Albumin 2.1 g/dL (3.4-4.8); Alkaline Phosphatase 97 U/L (40-150); Anion Gap 13 mmol/L (10-20); BUN (Urea Nitrogen) 18 mg/dL (8.4-25.7); Bilirubin, Total 0.4 mg/dL (0.2-1.2); Calc. Creatinine Clearance 17 mL/min (70-130); Calcium 8.7 mg/dL (7.8-10.44); Carbon Dioxide 26 mmol/L (23-31); Chloride 100 mmol/L (98-107); Estimated GFR-MDRD 22; Globulin 2.7 g/dL (2.4-3.5); Glucose 109 mg/dL (83-110); Protein, Total 4.8 g/dL (5.8-8.1); Sodium 136 mmol/L (136-145)
[2017-06-25 05:06] LABS: Potassium 2.8 mmol/L (3.5-5.1)
[2017-06-25 05:46] LABS: #Lymphocytes 0.8 thou/uL (1.20-3.40); #Monocytes 1.3 thou/uL (0.11-0.59); #Neutrophils 10.8 thou/uL (1.40-6.50); %Eosinophils 0.4 % (0.0-10.0); %Lymphocytes 5.8 % (21.0-51.0); %Monocytes 10.3 % (0.0-10.0); %Neutrophils 83.6 % (42.0-75.0); Anisocytosis SLIGHT = 6-15 cells (100X) (0-5/hpf); Hemoglobin 13.4 g/dL (14.0-18.0); MDiff Complete? YES; Macrocytosis SLIGHT = 6-15 cells (100X) (0-5/hpf); Mean Corpuscular HGB CONC 32.1 g/dL (32.0-36.0); Mean Corpuscular Hemoglobin 33.2 pg (27.0-31.0); PLT Morphology Comment Appears Adequate; Platelet Count 145 thou/uL (130-400); Polychromasia SLIGHT = 2-3 cells (100X) (0-2/hpf); RBC Distribution Width 19.3 % (11.5-14.5); Red Blood Cell (RBC) Count 4.04 mill/uL (4.70-6.10); White Blood Cell (WBC) Count 12.9 thou/uL (4.8-10.8)
[2017-06-25] MEDS: Piperacillin/Tazobactam 2.25 GM in Sodium Chloride 0.9% 100 ML IVPB SCH ×3 (05:58→22:19)
[2017-06-25] MEDS ORDERED: Potassium Chloride 20 MEQ TAB PO SCH (06:00)
[2017-06-25] MEDS ORDERED: Piperacillin/Tazobactam 0.75 GM in Sodium Chloride 0.9% 100 ML IVPB SCH (09:00)
--- NOTE | 2017-06-25 10:27 | CON ---
DATE OF CONSULTATION: 06/25/2017 HISTORY OF PRESENT ILLNESS: Mr. Vaz is an 81-year-old white male with ESRD and was admitted fo r septic shock. He was started on volume repletion as well as pressor support. We are now being con sulted for his maintenance hemodialysis. He was given fluid volume. At the same time, he was admitt ed to ICU and was given further volume repletion. In addition, the patient was also placed on presso r support. Of interest, this patient presented essentially with generalized malaise and weakness. REVIEW OF SYSTEMS: No shortness of breath, no fever, but has a dry cough with some sputum production . PAST MEDICAL HISTORY: Includes ESRD on maintenance hemodialysis, status post CHF, type 2 diabetes me llitus, hypertension, deconditioning, COPD, history of deafness, decreased visual acuity, hypothyroid ism. PAST SURGICAL HISTORY: Status post AV fistula placement, status post cuffed dialysis catheter placem ent, status post knee surgery, status post back surgery, status post pacemaker placement, status post cardiac catheterization, and status post CABG. FAMILY HISTORY: No family history of ESRD. ALLERGIES: None. TRAUMA: None. IMMUNIZATIONS: Up to date. HOSPITALIZATIONS: Please see past medical history. SOCIAL HISTORY: The patient is living in jail placement. He is single. No children. Seden tary lifestyle. Currently, no history of smoking, no alcohol intake. Status post blood transfusion. MEDICATIONS: Of 06/25/2017, [place] 5/325 q.6 h. p.r.n., Humalog sliding scale, Zosyn 2.25 grams IV q. 8 h., K-Dur 40 mEq p.r.n., status post vancomycin. PHYSICAL EXAMINATION: VITAL SIGNS: Blood pressure 121/48, heart rate 81, respiratory rate is 18, pulse ox 99%. GENERAL: Awake, supine, comfortable, not in distress. SKIN: Adequate turgor. HEENT: He has pinkish conjunctivae, anicteric sclerae. NECK: No neck mass, no carotid bruits, no JVD. CHEST: No deformities. LUNGS: Clear breath sounds. HEART: Normal sinus rhythm. No murmur, no gallops, no rubs. ABDOMEN: Globular, soft, nontender, no masses. EXTREMITIES: No edema, no deformities. LABORATORY DATA: Of 06/25/2017, sodium 136, potassium 2.8, chloride 100, carbon dioxide 26, BUN 18, creatinine 2.78, albumin 2.1. White count 12.9, hemoglobin 13.4. ASSESSMENT AND PLAN: 1. End-stage renal disease, stable. We will continue current Monday, Monday, Monday dialysis. T here is no indication for any dialytic intervention. 2. Sepsis syndrome - on empiric intravenous antibiotics. 3. Hypokalemia p.r.n. potassium replacement. Overall, prognosis remains guarded with this patient.
[2017-06-25] MEDS: Potassium Chloride 20 MEQ TAB PO SCH ×2 (11:54→11:55)
[2017-06-25] MEDS ORDERED: Fluconazole 100 MG TAB PO SCH (12:30)
[2017-06-25] MEDS: HYDROcodone/Acetaminophen 5/325 mg Tablet PO PRN (12:52)
--- NOTE | 2017-06-25 16:06 | PDOC.PN ---
- Subjective Encounter Start Date: 06/25/17 Encounter Start Time: 11:20 - Objective Resuscitation Status: Resuscitation Status DNI:No Intubation Vital Signs & Weight: Vital Signs (12 hours) Temp Pulse Resp Pulse Ox 06/25/17 16:00 98.8 F 06/25/17 12:00 98.8 F 06/25/17 07:16 98.3 F 82 18 99 06/25/17 07:00 98.3 F 06/25/17 06:37 99 Most Recent Monitor Data Heart Rate from ECG 85 NIBP 100/51 NIBP BP-Mean 81 Respiration from ECG 17 SpO2 99 I&O: 06/24/17 06/25/17 06/26/17 06:59 06:59 06:59 Intake Total 1455 360 Output Total 0 0 Balance 1455 360 Result Diagrams: 06/25/17 04:15 06/25/17 04:15 Additional Labs: Accuchecks 06/25/17 06/25/17 06/24/17 11:04 04:15 21:47 POC Glucose 151 H 98 155 H Dx/Plan - Plan * .
--- NOTE | 2017-06-25 22:47 | PRG ---
DATE OF SERVICE: 06/25/2017 SERVICE: Pulmonary Medicine. INTERVAL HISTORY: The patient is doing outstanding from a cardiovascular and respiratory standpoint. He denies any current fevers, chills, nausea, vomiting or chest discomfort. The only complaint he has is difficulty with swallowing, pain with swallowing, and thrush type reaction. Otherwise, there has been no interval change to his condition. PHYSICAL EXAMINATION: VITAL SIGNS: Afebrile, pulse 83, blood pressure 94/43, respirations 18, saturation 99% on room air. GENERAL: The patient is awake, alert, no apparent distress. LUNGS: Excellent air entry with no prolonged expiratory phase or wheezing. HEART: Normal rate and regular. ABDOMEN: Soft, nontender, nondistended. Bowel sounds are positive. MUSCULOSKELETAL: No cyanosis or clubbing. There is no pitting in the bilateral lower extremities. Fistula is present in the left upper extremity. LABORATORY DATA: WBC of 12.9, hemoglobin 13.4, platelets 145,000 and roughly stable. Potassium 2.8. Basic metabolic profile is otherwise unremarkable. Liver function studies are unremarkable. Blood cultures x2 are negative. ASSESSMENT: 1. End-stage renal disease. 2. Dehydration. 3. Thrush. 4. Systemic inflammatory response syndrome. 5. Sepsis, mild. PLAN: We will put the patient on antifungal medication for the next 10 days. His hemodynamics is cu rrently stable for transition out of the ICU. When he goes there, he will have no requirements for i npatient Pulmonary or Critical Care opinion. At that time, we will sign off. Please call with addit ional questions or concerns moving forward.
[2017-06-26] MEDS: HYDROcodone/Acetaminophen 5/325 mg Tablet PO PRN (02:21)
[2017-06-26 05:21] LABS: #Lymphocytes 0.7 thou/uL (1.20-3.40); #Monocytes 0.9 thou/uL (0.11-0.59); #Neutrophils 8.9 thou/uL (1.40-6.50); %Basophils 0.2 % (0.0-1.0); %Eosinophils 0.2 % (0.0-10.0); %Lymphocytes 6.9 % (21.0-51.0); %Monocytes 8.8 % (0.0-10.0); Hemoglobin 12.1 g/dL (14.0-18.0); Mean Corpuscular HGB CONC 30.8 g/dL (32.0-36.0); Mean Corpuscular Hemoglobin 32.6 pg (27.0-31.0); Mean Platelet Volume 8.7 fL (7.4-10.4); Platelet Count 120 thou/uL (130-400); RBC Distribution Width 19.4 % (11.5-14.5); Red Blood Cell (RBC) Count 3.72 mill/uL (4.70-6.10); White Blood Cell (WBC) Count 10.6 thou/uL (4.8-10.8)
[2017-06-26 05:24] LABS: Vancomycin, Random Less than 1.1 ug/mL (See Comment)
[2017-06-26 05:26] LABS: ALT (SGPT) 12 U/L (8-55); AST (SGOT) 17 U/L (5-34); Albumin 1.9 g/dL (3.4-4.8); Alkaline Phosphatase 93 U/L (40-150); Anion Gap 13 mmol/L (10-20); BUN (Urea Nitrogen) 28 mg/dL (8.4-25.7); Bilirubin, Total 0.3 mg/dL (0.2-1.2); Calc. Creatinine Clearance 13 mL/min (70-130); Calcium 8.2 mg/dL (7.8-10.44); Carbon Dioxide 24 mmol/L (23-31); Chloride 98 mmol/L (98-107); Estimated GFR-MDRD 17; Globulin 2.3 g/dL (2.4-3.5); Glucose 197 mg/dL (83-110); Magnesium 1.8 mg/dL (1.6-2.6); Potassium 3.3 mmol/L (3.5-5.1); Protein, Total 4.2 g/dL (5.8-8.1); Sodium 132 mmol/L (136-145)
[2017-06-26] MEDS: HumaLOG 300 UNITS/3 ML VIAL SC PRN ×2 (06:20→17:13)
--- NOTE | 2017-06-26 07:33 | HP ---
PRIMARY CARE PHYSICIAN: Tank Stacy D.O. PRIMARY ENVIRONMENTAL DIRECTOR: Benito Rosenberg M.D. DATE OF ADMISSION: 06/24/2017 TIME OF SERVICE: 15:10 CHIEF COMPLAINT: Shortness of breath and I do not feel good. HISTORY OF PRESENT ILLNESS: Mr. Vaz is an 81-year-old [place] male with a history of en d-stage renal disease, coronary artery disease with chronic systolic CHF, diabetes, hypertension, who has hard of hearing and legally blind, who presents to the emergency department for feeling poorly. The patient was recently admitted from 05/28/2017 to 06/01/2017 for pneumonia and volume overload. Lashonda dutta was discharged to inpatient rehabilitation, I believe at [facility] and has been home for maybe a week. He has had shortness of breath and overall just not feeling good. EMS was activated and was b rought to the emergency department for evaluation. Here, he was found to be hypotensive, he received a 500 mL bolus, less than normal due to his history of end-stage renal disease, they attempted to place a subclavian central venous catheter, but we wer e unable to thread it. They did place a femoral central venous catheter and started the patient on L evophed for initial blood pressure in the 50s-60s systolic. After increasing Levophed at 7.5, his bl ood pressure stabilized systolic of 110. I was subsequently called for admission. The patient has been afebrile here, but has complained of feeling feverish at home. He has had nause a and vomiting in the last couple of days and not been able to keep much down or drink fluids. He di d tolerate dialysis one day prior to admission and completed a full dialysis without any difficulties , he knows that. He denies any cough, no hemoptysis. No GI bleeding from above or below. No abdominal pain at presen t. He denies any chest pain. PAST MEDICAL HISTORY: 1. Coronary artery disease status post PR in the past. 2. End-stage renal disease on Monday, Monday, and Monday hemodialysis followed by Dr. Rosenberg. 3. Diabetes mellitus type 2. 4. Hypertension. 5. Legally blind. 6. Hearing loss. 7. Peripheral neuropathy. 8. Chronic systolic congestive heart failure. PAST SURGICAL HISTORY: Include, 1. Permanent pacemaker placement. 2. Coronary artery bypass grafting in the past. 3. Back surgery. 4. Knee surgery of unknown type. 5. Left forearm fistula creation. HOME MEDICATIONS: 1. [place] 5/325 one tab p.o. as needed. 2. Nifedipine 30 mg daily. 3. Amiodarone 400 mg p.o. q.p.m. 4. Aspirin 81 mg daily. 5. Tylenol #3 as needed b.i.d. 6. Lantus 200 units subcu at bedtime. 7. Coreg 3.125 mg p.o. b.i.d. 8. Megace 40 mg p.o. daily, probably takes 5 mL p.o. b.i.d., probably 400 mg b.i.d. 9. Lorazepam 0.5 mg daily as needed. 10. Lidocaine patch 5% p.r.n. 11. DuoNebs as needed. 12. Humalog sliding scale. 13. Erythropoietin 7500 units every week with dialysis. 14. Docusate 2 tabs b.i.d. 15. Prednisone 20 mg daily. ALLERGIES: To BENZODIAZEPINES, this causes sedation, but he tolerated ATIVAN fine. FAMILY HISTORY: Negative for clotting or bleeding disorder, no immune dysfunction. SOCIAL HISTORY: Negative for habits x3. Did smoke tobacco in the past, but quit many years ago. He is , monogamous. He has recently been at rehab and has been at home with his for about a week. REVIEW OF SYSTEMS: A 10-point review of systems was performed and is negative for all systems except as stated per HPI. PHYSICAL EXAMINATION: VITAL SIGNS: Temperature current 98.5, pulse 60, blood pressure 116/51, respiratory 14, satting 90% on room air. He is on 7.5 mg of Levophed. GENERAL: He is awake. He is alert. He is oriented x3. He is chronically ill appearing acutely on top of that. He is in moderate distress, overall, but breathing comfortably. HEENT: Normocephalic, atraumatic. His pupils are equal, reactive bilaterally, mucous membranes are moist. He has no visible lesion, no thrush. NECK: Supple, without lymphadenopathy, JVD, or thyromegaly. He does have normal carotid upstroke. I do not appreciate a bruit. LUNGS: Clear anteriorly, posteriorly, has some faint bibasilar crackles. These clear with deep insp iration. CARDIOVASCULAR: He has a normal cardiac. He has normal S1 and S2. He does have a 2/6 systolic ejec tion murmur best heard at the right upper sternal border. He has no diastolic murmurs. ABDOMEN: Soft. It is nontender and nondistended. He has good bowel sounds in all four quadrants. There is no rebound, rigidity or guarding. EXTREMITIES: No cyanosis, no clubbing. He has got trace pedal edema bilaterally. He has a thready but palpable dorsalis pedis and posterior tibial pulses. SKIN: Otherwise warm, moist, and well well-perfused. No other rashes or lesions. Left upper extrem ity fistula has a palpable thrill and audible bruit when auscultated. MUSCULOSKELETAL: Large joints are uninflamed. They are normal to inspection. He has good range of motion. There are no palpable effusions. NEUROLOGIC: Cranial nerves II-XII are grossly intact. He has normal speech pattern, he is hard of h earing. He has 5/5 strength in all extremities. LABORATORY DATA AND IMAGING DATA: Sodium 139, potassium 3.2, chloride 101, bicarbonate 24, BUN 15, c reatinine 2.38 and glucose of 43. Liver function is normal. Has got CBC, which showed white count o f 15.2, 82% granulocytes, 9% bands, hemoglobin 14.9, hematocrit of 47.8, and platelet count is 191,00 0. Chest x-ray shows stable cardiomegaly with no infiltrates or opacities. ASSESSMENT AND PLAN: 1. Septic shock. The patient is requiring Levophed for blood pressure support. He has elevated whi te blood cell count with left shift, presumed infectious source. He has had recent nausea and vomiti ng on top of a full dialysis. I suspect he is probably dehydrated. He will get 500 mL of saline in the ER. I do not think he has been adequately fluid resuscitated. We will give another liter now wh ich is taken close to his 30 mL per kilo. We will bolus him as needed. We will try to wean Levophed off tonight. 2. End-stage renal disease on hemodialysis. We will consult Dr. Rosenberg. The patient had normal dialys is on 06/23/2017. Resume his dialysis on regular schedule. 3. Coronary artery disease. 4. Probable atrial fibrillation on amiodarone. 5. Diabetes mellitus type 2, insulin-dependent. He is on huge doses of Lantus 200 units subcu q.p.m . Typically, that is not helpful regimen. He may benefit from less Lantus and more premeal Humalog since he takes that anyways. We will watch his trend. 6. Hypertension, hold medicine now in the face of hypotension. The patient was placed in the critical care unit for intensive monitoring, Levophed drip, and care. We will continue antibiotics with vancomycin and Zosyn at present. He has been renally dosed these. Forty-five minutes of critical care was spent with the patient.
[2017-06-26] MEDS: Piperacillin/Tazobactam 2.25 GM in Sodium Chloride 0.9% 100 ML IVPB SCH (09:29)
[2017-06-26] MEDS: Fluconazole 100 MG TAB PO SCH (09:30)
--- NOTE | 2017-06-26 09:43 | PRG ---
DATE OF SERVICE: 06/26/2017 SUBJECTIVE: Mr. Vaz is an 81-year-old male who was admitted for low blood pressure. He was given volume repletion as well as pressor support. Since that time, he has been feeling better. The patient voices no new complaints, except from being tired. He is scheduled for dialysis this afternoon. PHYSICAL EXAMINATION: VITAL SIGNS: Blood pressure is now 106/70, 107/43, heart rate 69, pulse ox 99%. GENERAL: Awake, supine, comfortable, not in distress. SKIN: Adequate turgor. HEENT: Pinkish conjunctivae, anicteric sclerae. NECK: No neck mass, no carotid bruits, no JVD. CHEST: No deformities. LUNGS: Decreased breath sounds. HEART: Normal sinus rhythm. No murmur, no gallops, no rubs. ABDOMEN: Globular, soft, nontender, no masses. EXTREMITIES: No edema. MEDICATIONS: 06/26/2017 - Reviewed. LABORATORY: 06/26/2017 - White count 10.6, hemoglobin 12.1. Sodium 132, potassium 3.3, chloride 98, carbon dioxide 24, BUN 28, creatinine 3.54. ASSESSMENT AND PLAN: 1. End-stage renal disease, stable. We will continue current hemodialysis regimen of Monday, Monday, Monday. Minimal fluid removal due to the low blood pressure. 2. Hypokalemia - We will adjust potassium bath at the dialysis. Consider using a 3-0 to 4-0 potassium bath. 3. Hypotension, clinically much improved. Initially thought to be septic in nature. He is still currently on empiric IV antibiotics. His overall prognosis remains guarded. [facility]
[2017-06-26] MEDS ORDERED: predniSONE 20 MG TAB PO SCH (10:15)
[2017-06-26] MEDS ORDERED: Amiodarone 200 MG TAB PO SCH (10:15)
--- NOTE | 2017-06-26 10:16 | PRG ---
DATE OF SERVICE: 06/26/2017 SERVICE: Pulmonary Medicine. INTERVAL HISTORY: The patient is doing really well from a respiratory standpoint. He continues to h ave complaints of throat discomfort. Otherwise, there has been no interval change to his condition. He denies any current fevers, chills, or overnight events. He has not been out of bed since he has been in this hospital. PHYSICAL EXAMINATION: VITAL SIGNS: Afebrile, pulse 69, blood pressure 107/43, respirations 13, saturation 99% on room air. GENERAL: The patient is awake, alert, in no apparent distress. LUNGS: Excellent air entry. There is no prolonged expiratory phase, wheezing, rhonchi, or crackles. HEART: Normal rate, regular. ABDOMEN: Soft, nontender, nondistended. Bowel sounds are positive. MUSCULOSKELETAL: No cyanosis or clubbing. There is trace pitting in the bilateral lower extremities . NEUROLOGIC: Grossly nonfocal. LABORATORY DATA: WBC 10.6, hemoglobin 12.1, platelets 120,000. Creatinine 3.54. Liver function diane dies are essentially unremarkable, BUN 28. Basic metabolic profile is, otherwise, unremarkable excep t for a potassium of 3.3. Blood cultures x2 are unremarkable. ASSESSMENT: 1. End-stage renal disease. 2. Dehydration. 3. Thrush. 4. Sepsis, mild. PLAN: The patient is still a little volume depleted. I will give him another liter of fluid. We wi ll be careful not to take too much fluid with dialysis. Pulmonary Critical Care will continue to fol low while the patient remains in this location, but he remains stable for transition to the medical u [facility]. I will give him nystatin swish and swallow, and help mobilize him today and involve physical jermaine in his recovery. I will restart some of his home medications.
[2017-06-26] MEDS ORDERED: Sodium Chloride 0.9% 1,000 ML IV SCH (12:00)
[2017-06-26] MEDS: Sevelamer Carbonate 800 MG TAB PO SCH ×2 (13:24→17:13)
[2017-06-26] MEDS: Aluminum & Magnesium Hydroxide 60 ML, diphenhydrAMINE 150 MG, Lidocaine 2% Viscous Solu... SSW PRN ×2 (15:08→22:25)
[2017-06-26 15:21] VITALS: BMI 22.8
--- NOTE | 2017-06-26 16:32 | PDOC.PN ---
- Subjective Encounter Start Date: 06/26/17 Encounter Start Time: 12:00 - Objective Resuscitation Status: Resuscitation Status DNI:No Intubation Vital Signs & Weight: Vital Signs (12 hours) Temp Pulse Resp Pulse Ox 06/26/17 12:00 97.6 F 06/26/17 08:05 100 06/26/17 08:00 98.3 F 75 13 100 Weight Admit Weight 133 lb Weight 133 lb 2.547 oz Most Recent Monitor Data Heart Rate from ECG 74 NIBP 137/53 NIBP BP-Mean 92 Respiration from ECG 14 SpO2 100 I&O: 06/25/17 06/26/17 06/27/17 06:59 06:59 06:59 Intake Total 1455 1420 477 Output Total 0 0 0 Balance 1455 1420 477 Result Diagrams: 06/26/17 04:45 06/26/17 04:45 Additional Labs: Accuchecks 06/26/17 06/26/17 06/25/17 11:14 06:11 21:27 POC Glucose 102 171 H 142 H Dx/Plan - Plan * .
[2017-06-27 05:07] LABS: Anion Gap 13 mmol/L (10-20); BUN (Urea Nitrogen) 18 mg/dL (8.4-25.7); Calc. Creatinine Clearance 20 mL/min (70-130); Calcium 8.3 mg/dL (7.8-10.44); Carbon Dioxide 27 mmol/L (23-31); Chloride 98 mmol/L (98-107); Estimated GFR-MDRD 25; Glucose 141 mg/dL (83-110); Magnesium 1.8 mg/dL (1.6-2.6); Potassium 3.4 mmol/L (3.5-5.1); Sodium 135 mmol/L (136-145)
[2017-06-27 06:15] LABS: #Lymphocytes 0.6 thou/uL (1.20-3.40); #Monocytes 0.8 thou/uL (0.11-0.59); #Neutrophils 8.2 thou/uL (1.40-6.50); %Basophils 0.1 % (0.0-1.0); %Eosinophils 0.2 % (0.0-10.0); %Lymphocytes 6.2 % (21.0-51.0); %Monocytes 8.4 % (0.0-10.0); %Neutrophils 85.2 % (42.0-75.0); Hemoglobin 13.1 g/dL (14.0-18.0); MDiff Complete? YES; Mean Corpuscular HGB CONC 31.7 g/dL (32.0-36.0); Mean Corpuscular Hemoglobin 32.8 pg (27.0-31.0); Mean Platelet Volume 8.6 fL (7.4-10.4); PLT Morphology Comment Appears Decreased; Platelet Count 107 thou/uL (130-400); Polychromasia SLIGHT = 2-3 cells (100X) (0-2/hpf); RBC Distribution Width 19.3 % (11.5-14.5); Red Blood Cell (RBC) Count 3.99 mill/uL (4.70-6.10); White Blood Cell (WBC) Count 9.6 thou/uL (4.8-10.8)
[2017-06-27] MEDS: Sevelamer Carbonate 800 MG TAB PO SCH ×3 (08:15→17:28)
[2017-06-27] MEDS: Amiodarone 200 MG TAB PO SCH (08:15)
[2017-06-27] MEDS: predniSONE 20 MG TAB PO SCH (08:16)
[2017-06-27] MEDS: Fluconazole 100 MG TAB PO SCH (08:16)
--- NOTE | 2017-06-27 09:29 | PRG ---
DATE OF SERVICE: 06/27/2017 RENAL MEDICINE SUBJECTIVE: Mr. Vaz is an 81-year-old white male with ESRD and being followed by the [facility] for his maintenance hemodialysis. He was initially admitted for confusion and hemodynamic insta bility. He was given some volume repletion, which improved his blood pressure. He underwent dialysi s yesterday without any difficulty. He was thought to have some degree of mild sepsis at the same ti me. This morning, he is feeling better. I decided to do a short 2-hour hemodialysis with this patient si nce I will be changing his schedule to Monday, , and Monday. Minimal fluid removal with d ialysis today. He voices no new complaints. He is actually feeling better. OBJECTIVE: VITAL SIGNS: Blood pressure is 134/65, heart rate 84, respiratory 22, temperature 97.9, pulse ox 96% . GENERAL: Noted to be awake, alert, comfortable, not in distress. SKIN: Adequate turgor. HEENT: Pinkish conjunctivae, anicteric sclerae. NECK: No neck mass, no carotid bruits, no JVD. CHEST: No deformities. LUNGS: Clear breath sounds. HEART: Normal sinus rhythm. No murmur, no gallops, no rubs. ABDOMEN: Globular, soft, nontender, no masses. EXTREMITIES: No edema. MEDICATIONS: Of 06/27/2017 was reviewed. LABORATORY DATA: Of 06/27/2017, white count 9.6, hemoglobin 13.1. Sodium 135, potassium 3.4, chlori de 98, carbon dioxide 24, BUN 18, creatinine 2.48, glucose 141, calcium 8.3, magnesium 1.8. ASSESSMENT AND PLAN: 1. Hypotension - clinically much improved. Minimal fluid removal with dialysis today. 2. End-stage - I have changed his schedule to Monday, , and Monday hemodialysis regimen. We will do a short 2-hour hemodialysis today. Fluid removal only as tolerated. 3. Mild sepsis - clinically much improved. Overall, agree with current management.
--- NOTE | 2017-06-27 14:40 | PQF ---
CLINICAL DOCUMENTATION IMPROVEMENT CLARIFICATION FORM: ICD-10 Updated PLEASE DO AN ADDENDUM TO THE PROGRESS NOTE WITH ANY DOCUMENTATION UPDATES OR ADDITIONS AND CARRY THROUGH TO DC SUMMARY. THANK YOU. DATE: 06/27/17 ATTN: Dr. Salinas Please exercise your independent, professional judgment in responding to the clarification form. Clinical indicators are provided on the bottom of this form for your review Please check appropriate box(s): I (concur) with the Wound Care findings as stated below. [ ] Pressure Ulcer: (Stage I: Erythema; Stage II: Partial thickness; Stage III : Full thickness; Stage IV: Necrosis to muscle/bone) [ ] Location: Stage (I to IV): (Left Right Bilateral N/A__ ___) [ ] Location: Stage (I to IV): (Left Right Bilateral N/A__ ___) [ ] No pressure ulcer diagnosis [ ] Deep tissue injury [ ] Other diagnosis [ ] Unable to determine In addition, please specify: Present on Admission (POA): [ ] Yes [ ] No [ ] Unable to determine For continuity of documentation, please document condition throughout progress notes and discharge summary. Thank You. CLINICAL INDICATORS - SIGNS / SYMPTOMS / LABS WOUND CARE EVAL 06/25/17: SACRUM PRESSURE ULCER. STAGE III RISKS: H&P: AGE 81. HX OF ESRD ON HEMODIALYSIS, CAD, DIABETES. SEPTIC SHOCK. TREATMENT: CPOE 06/24/17: WOUND CARE EVAL/ TREAT FOR MULTIPLE SKIN WOUNDS, . Pre-ulcer skin changes limited to persistent focal edema (Stage 1) Abrasion, blister, partial thickness skin loss involving epidermis and/or dermis (Stage 2) Full thickness skin loss involving damage or necrosis of SQ tissue. (Stage 3) Necrosis of soft tissue through to underlying muscle, tendon, or bone. (Stage 4) Purple or maroon discolored skin or blood filled blister Thank you, Naye (This form is maintained as a part of the permanent medical record) 2015 [employer] All Rights Reserved Naye Rivera RN, BSN [email or web address] Office: [phone] [facility]
[2017-06-27] MEDS: HumaLOG 300 UNITS/3 ML VIAL SC PRN (18:17)
--- NOTE | 2017-06-28 07:28 | PRG ---
DATE OF SERVICE: 06/28/2017 SERVICE: Pulmonary Medicine. INTERVAL HISTORY: The patient is doing really quite well from a cardiovascular and respiratory stand point. He has got a lot of concerns. That being said, he also has a little bit of confusion and is not quite certain what the circumstances are. Otherwise, there has been no interval change to his co ndition. He denies any fevers or chills. He has no nausea or vomiting. His appetite is picking up a little bit. PHYSICAL EXAMINATION: VITAL SIGNS: Afebrile, pulse 84, blood pressure 106/57, respirations 20, saturation 94% on room air. GENERAL: The patient is awake and alert, in no apparent distress. LUNGS: Decent air entry. There is no prolonged expiratory phase, wheezing, rhonchi, or crackles. HEART: Normal rate, regular. ABDOMEN: Soft, nontender, nondistended. Bowel sounds are positive. MUSCULOSKELETAL: No cyanosis or clubbing. Tenting edema has improved. GENITOURINARY: No Dodd. NEUROLOGIC: Grossly nonfocal. LABORATORY DATA: WBC 9.6, hemoglobin 13.1, platelets 107,000. Potassium 3.4, creatinine 2.48. Basi c metabolic profile is, otherwise, unremarkable. Magnesium 1.8. Blood cultures x2 are unremarkable. ASSESSMENT: 1. End-stage renal disease. 2. Dehydration. 3. Thrush, improving. 4. Sepsis, mild. PLAN: At this point, the patient is currently on room air. His blood pressures have firmed up very nicely. The thrush is improving. He has no further requirements for inpatient Pulmonary or Critical Care opinion. As such, I will sign off. Please call with additional questions or concerns moving f orward. I will continue our mobilization efforts.
[2017-06-28] MEDS: Aluminum & Magnesium Hydroxide 60 ML, diphenhydrAMINE 150 MG, Lidocaine 2% Viscous Solu... SSW PRN (09:56)
[2017-06-28] MEDS: Fluconazole 100 MG TAB PO SCH (09:58)
[2017-06-28] MEDS: Sevelamer Carbonate 800 MG TAB PO SCH ×3 (09:58→12:08)
[2017-06-28] MEDS: HYDROcodone/Acetaminophen 5/325 mg Tablet PO PRN (09:58)
[2017-06-28] MEDS: Amiodarone 200 MG TAB PO SCH (09:59)
[2017-06-28] MEDS: predniSONE 20 MG TAB PO SCH (10:00)
[2017-06-28 16:30] VITALS: BP 131/72; TEMP 97.9
--- NOTE | 2017-07-13 09:55 | PQF ---
DONELLRUTHY JANNAARTUR [id number] CLINICAL DOCUMENTATION IMPROVEMENT CLARIFICATION FORM: ICD-10 Updated PLEASE DO AN ADDENDUM TO THE PROGRESS NOTE WITH ANY DOCUMENTATION UPDATES OR ADDITIONS AND CARRY THROUGH TO DC SUMMARY. THANK YOU. DATE: 06/27/17 ATTN: Dr. Salinas Please exercise your independent, professional judgment in responding to the clarification form. Clinical indicators are provided on the bottom of this form for your review Please check appropriate box(s): I (concur) with the Wound Care findings as stated below. [ x ] Pressure Ulcer: (Stage I: Erythema; Stage II: Partial thickness; Stage III : Full thickness; Stage IV: Necrosis to muscle/bone) [ ] Location: ____[place] Stage (I to IV): ___III____ (Left Right____ _ Bilateral N/A ) [ ] Location: Stage (I to IV): (Left Right Bilateral N/A ) [ ] No pressure ulcer diagnosis [ ] Deep tissue injury [ ] Other diagnosis [ ] Unable to determine In addition, please specify: Present on Admission (POA): [ x ] Yes [ ] No [ ] Unable to determine For continuity of documentation, please document condition throughout progress notes and discharge summary. Thank You. CLINICAL INDICATORS - SIGNS / SYMPTOMS / LABS WOUND CARE EVAL 06/25/17: SACRUM PRESSURE ULCER. STAGE III RISKS: H&P: AGE 81. HX OF ESRD ON HEMODIALYSIS, CAD, DIABETES. SEPTIC SHOCK. TREATMENT: CPOE 06/24/17: WOUND CARE EVAL/ TREAT FOR MULTIPLE SKIN WOUNDS, . THANK YOU, KIRK (This form is maintained as a part of the permanent medical record) 2014 [employer]. All Rights Reserved Naye Rivera, RN, BSN [email or web address] Office: [phone] [email or web address]
--- NOTE | 2017-08-14 13:58 | DIS ---
Please note that I am dictating this on behalf of Dr. Salinas. DISCHARGE DIAGNOSES: 1. Septic shock, resolved. 2. End-stage renal disease on hemodialysis. 3. Known coronary artery disease history. 4. Insulin-dependent type 2 diabetes. 5. Hypertension. 6. Atrial fibrillation. BRIEF SUMMARY OF HOSPITAL COURSE: This is an 81-year-old male with a known history of hypertension, insulin-dependent diabetes, atrial fibrillation, end- stage renal disease on hemodialysis and coronary artery disease who presented with a chief complaint of shortness of breath and feeling unwell. Please see the original history and physical for full details surrounding admission. On admission, he was found to be septic with a severe degree of dehydration and hypotension suggestive of septic shock. The patient was seen by Nephrology and continued with his dialysis as tolerated. The patient was initially started on Levophed for pressor support. This was gradually weaned off with adequate fluid resuscitation. The patient was placed in the Intensive Care Unit and continuous miner critical care physician consulted as well. At the time of discharge his initial empiric antibiotics of vancomycin, piperacillin, tazobactam been deescalated. Blood culture has been no growth. The remainder of the patient's chronic medical issues have remained stable during this hospitalization. CONSULTS: 1. Nephrology. 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 CONDITION AT THE TIME DISCHARGE: At the time of discharge, the patient is hemodynamically stable. MEDICATION RECONCILIATION: Please see the EMR for full details. DISCHARGE INSTRUCTIONS: The patient is asked to follow up carefully with his primary care team. Thank you for asking us to care for the patient. Greater than 30 minutes spent coordinating discharge for the patient. Questions or concerns, please contact us at [facility]. AILYN
== END 2017-06-28 16:50 | disposition home health service (06) | DRG 871 ==
LOC: ERS 11:18 → CCU 15:12 → T4-A 06-26 21:59
PROVIDERS: ADMIT Internal Medicine Infectious Disease; ATTEND Internal Medicine Infectious Disease
PROC: 06HY33Z Insertion of Infusion Device into Lower Vein, Percutaneous Approach (ICD-10-PCS; principal; 2017-06-24)
PROC: 05JY3ZZ Inspection of Upper Vein, Percutaneous Approach (ICD-10-PCS; 2017-06-24)
PROC: 5A1D70Z Performance of Urinary Filtration, Intermittent, Less than 6 Hours Per Day (ICD-10-PCS; 2017-06-26)
DX: A41.9 Sepsis, unspecified organism (principal); R65.21 Severe sepsis with septic shock; I13.2 Hypertensive heart and chronic kidney disease with heart failure and with stage 5 chronic kidney disease, or end stage renal disease; L89.153 Pressure ulcer of sacral region, stage 3; E11.22 Type 2 diabetes mellitus with diabetic chronic kidney disease; I48.91 Unspecified atrial fibrillation; N18.6 End stage renal disease; E11.42 Type 2 diabetes mellitus with diabetic polyneuropathy; I50.22 Chronic systolic (congestive) heart failure; B37.9 Candidiasis, unspecified; Z99.2 Dependence on renal dialysis; H54.8 Legal blindness, as defined in USA; H91.90 Unspecified hearing loss, unspecified ear; I25.10 Atherosclerotic heart disease of native coronary artery without angina pectoris; I25.2 Old myocardial infarction; Z95.0 Presence of cardiac pacemaker; Z95.1 Presence of aortocoronary bypass graft; Z79.4 Long term (current) use of insulin; Z87.891 Personal history of nicotine dependence; E86.0 Dehydration; E87.6 Hypokalemia; E03.9 Hypothyroidism, unspecified
CPT/HCPCS: 36415; 36416; 36556; 71045; 80048; 80053; 80202; 82274; 82330; 82803; 83605; 83735; 85025; 87040; 90935; 93005; 94640; 96365; 96366; 96368; 96375; A4216; G0257; G8978-GP-CM; G8979-GP-CL; G8987-GO-CM; G8988-GO-CM; G8989-GO-CM; J2543; J3370; J7050; J7506; J7620; Q0162; S0028